=== PATIENT | male | born 1945 | race Caucasian/White ===

== ENCOUNTER 2017-02-08 19:46 | Inpatient (IN) | payer OTHER, BC ==
[2017-02-08 19:56] VITALS: BMI 33.0
--- NOTE | 2017-02-08 20:28 | PDOC ---
Attending Attestation - Resident Resident Name: Jesus Rouse - ED Attending Attestation I have performed the following: I have examined & evaluated the patient, The case was reviewed & discussed with the resident, I agree w/resident's findings & plan, Exceptions are as noted - HPI HPI: 02/08/17 20:44 Pt presents for admission for surgery to his spine. Pt has had procedure before. - Physicial Exam PE: 02/08/17 20:45 *Physical Exam General Appearance: Yes: Appropriately Dressed. No: Apparent Distress, Intoxicated HEENT: positive: EOMI, GEORGES, Normal ENT Inspection, Normal Voice, TMs Normal, Pharynx Normal. negative: Pale Conjunctivae, Photophobia, Scleral Icterus (R), Scleral Icterus (L) Neck: positive: Trachea midline, Normal Thyroid, Supple. negative: Tender, Rigid, Carotid bruit, Stridor, Lymphadenopathy (R), Lymphadenopathy (L), Thyromegaly Respiratory/Chest: positive: Lungs Clear, Normal Breath Sounds. negative: Chest Tender, Respiratory Distress, Accessory Muscle Use, Labored Respiration, RES, Crackles, Rales, Rhonchi, Stridor, Wheezing, Dullness Cardiovascular: positive: Regular Rhythm, Regular Rate, S1, S2. negative: Edema , JVD, Murmur, Bradycardia, Tachycardia Vascular Pulses: Dorsalis-Pedis (R): 2+, Doralis-Pedis (L): 2+ Gastrointestinal/Abdominal: positive: Normal Bowel Sounds, Flat, Soft. negative : Tender, Organomegaly, Pulsatile Mass, Increased Bowel Sounds, Decreased BS, Distended, Guarding, Rebound, Hernia, Hepatomegaly, Spleenomegaly Lymphatic: negative: Adenopathy, Tenderness Musculoskeletal: positive: Normal Inspection. negative: CVA Tenderness, Decreased Range of Motion Extremity: positive: Normal Capillary Refill, Normal Inspection, Normal Range of Motion, Pelvis Stable. negative: Tender, Pedal Edema, Swelling, Erythema Integumentary: positive: Normal Color, Dry, Warm. 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 negative: EOM Palsy, Facial Droop, Sensory Deficit - Medical Decision Making 02/13/17 19:51 Pt admitted to ICU
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
[2017-02-08 21:31] LABS: BASOPHIL 1.1 % (0-2.0); EOSINOPHIL 2.6 % (0-4.5); MCH 29.7 pg (25.7-33.7); MCHC 34.2 g/dl (32.0-35.9); MEAN CELL VOLUME 86.7 fl (80-96); MEAN PLT VOLUME 8.7 fl (7.5-11.1); NEUTROPHILS 56.5 % (42.8-82.8); PLATELET COUNT 248 K/MM3 (134-434); RDW 13.4 % (11.9-15.9); WHITE BLOOD COUNT 9.6 K/mm3 (4.0-10.0)
[2017-02-08 21:46] LABS: INR 0.97 (0.82-1.09)
[2017-02-08 22:07] LABS: ALBUMIN 3.6 g/dl (3.4-5.0); ALK PHOS 98 U/L (45-117); ANION GAP 7 (8-16); BILIRUBIN,TOTAL 0.3 mg/dL (0.2-1.0); CALCIUM 8.8 mg/dL (8.5-10.1); CO2 31 mmol/L (21-32); CREATININE 0.8 mg/dL (0.7-1.3); GLUCOSE,RANDOM 115 mg/dL (74-106); MAGNESIUM 2.2 mg/dL (1.8-2.4); SGOT/AST 17 U/L (15-37); SGPT/ALT 22 U/L (12-78); TOT PROT 6.9 g/dl (6.4-8.2)
[2017-02-09 06:05] LABS: URINE APPEARANCE CLEAR; URINE BILIRUBIN NEGATIVE (NEGATIVE); URINE BLOOD NEGATIVE (NEGATIVE); URINE COLOR YELLOW; URINE GLUCOSE (UA) NEGATIVE (NEGATIVE); URINE KETONE NEGATIVE (NEGATIVE); URINE NITRITE NEGATIVE (NEGATIVE); URINE PROTEIN NEGATIVE (NEGATIVE); URINE UROBILINOGEN NEGATIVE mg/dL (0.2-1.0)
--- NOTE | 2017-02-09 07:46 | PDOC ---
*Physical Exam - Vital Signs Last Vital Signs Temp Pulse Resp BP Pulse Ox 97.7 F 71 18 143/74 98 02/08/17 19:49 02/08/17 19:49 02/08/17 19:49 02/08/17 19:49 02/08/17 19:49 ED Treatment Course - LABORATORY CBC & Chemistry Diagram: 02/08/17 21:25 02/08/17 21:25 - ADDITIONAL ORDERS Additional order review: Laboratory Results 02/09/17 02/08/17 02/08/17 05:40 21:25 21:25 PT with INR INR Sodium 142 Potassium 3.8 Chloride 104 Carbon Dioxide 31 Anion Gap 7 L BUN 22 H Creatinine 0.8 Creat Clearance w eGFR > 60 Random Glucose 115 H Calcium 8.8 Magnesium 2.2 Total Bilirubin 0.3 AST 17 ALT 22 Alkaline Phosphatase 98 Total Protein 6.9 Albumin 3.6 Urine Color Yellow Urine Appearance Clear Urine pH 5.0 Ur Specific [place] 1.026 Urine Protein Negative Urine Glucose (UA) Negative Urine Ketones Negative Urine Blood Negative Urine Nitrite Negative Urine Bilirubin Negative Urine Urobilinogen Negative Blood Type A POSITIVE Antibody Screen Negative 02/08/17 21:25 PT with INR 11.00 INR 0.97 Sodium Potassium Chloride Carbon Dioxide Anion Gap BUN Creatinine Creat Clearance w eGFR Random Glucose Calcium Magnesium Total Bilirubin AST ALT Alkaline Phosphatase Total Protein Albumin Urine Color Urine Appearance Urine pH Ur Specific [place] Urine Protein Urine Glucose (UA) Urine Ketones Urine Blood Urine Nitrite Urine Bilirubin Urine Urobilinogen Blood Type Antibody Screen 02/08/17 21:25 RBC 4.53 MCV 86.7 MCHC 34.2 RDW 13.4 MPV 8.7 Neutrophils % 56.5 Lymphocytes % 29.7 Monocytes % 10.1 Eosinophils % 2.6 Basophils % 1.1 Progress Note - Progress Note Progress Note: Received report from Dr. Lee. Second call placed to Dr. Suarez's office at [phone]. Medical Decision Making - Medical Decision Making 02/09/17 09:59 Three calls have been placed this morning to Dr. Suarez's office at [phone] with no response. Discussed with patient that we have been unable to reach his surgeon. Pt has also called the service twice. Pt reports his surgery is scheduled for Sunday. On Feb 07, pt reports that Dr. Suarez's nurse told him to come to [facility] Sunday (02/09) at 6:30am. Pt told nurse that he had no transportation to arrive that early, and RN told him to come last night to the ED instead. Since we have been unable to reach the surgeon, the surgery is scheduled for Sunday, and the patient has no acute pain complaints, we will discharge him home. 02/09/17 10:09 *DC/Admit/Observation/Transfer Diagnosis at time of Disposition: Lumbar spine root compression - Referrals - Patient Instructions Additional Instructions: Please follow-up with your Orthopedic surgeon regarding when your surgery is scheduled and pre-operative preparations. - Post Discharge Activity
--- NOTE | 2017-02-09 09:28 | EKG ---
Test Reason : Blood Pressure : / mmHG Vent. Rate : 068 BPM Atrial Rate : 068 BPM P-R Int : 174 ms QRS Dur : 106 ms QT Int : 422 ms P-R-T Axes : 029 036 032 degrees QTc Int : 448 ms NORMAL SINUS RHYTHM NON-SPECIFIC INTRA-VENTRICULAR CONDUCTION DELAY NO PREVIOUS ECGS AVAILABLE Confirmed by ISIS ARCHER MD ([id number]) on 02/09/2017 9:27:53 AM Referred By: Confirmed By:ISIS ARCHER MD
[2017-02-09 09:42] LABS: URINE LEUK ESTERASE Negative (NEGATIVE)
--- NOTE | 2017-02-09 11:45 | PDOC ---
ED Treatment Course - LABORATORY CBC & Chemistry Diagram: 02/08/17 21:25 02/08/17 21:25 - ADDITIONAL ORDERS Additional order review: Laboratory Results 02/09/17 05:40 Urine Color Yellow Urine Appearance Clear Urine pH 5.0 Ur Specific [place] 1.026 Urine Protein Negative Urine Glucose (UA) Negative Urine Ketones Negative Urine Blood Negative Urine Nitrite Negative Urine Bilirubin Negative Urine Urobilinogen Negative Ur Leukocyte Esterase Negative 02/08/17 21:25 RBC 4.53 MCV 86.7 MCHC 34.2 RDW 13.4 MPV 8.7 Neutrophils % 56.5 Lymphocytes % 29.7 Monocytes % 10.1 Eosinophils % 2.6 Basophils % 1.1 Medical Decision Making - Medical Decision Making 02/09/17 11:42 Patient will be admitted to Hospitalist service for intractable back pain, pre- operative clearance, and scheduled surgery on Sunday by Dr. Suarez. 02/09/17 12:46 *DC/Admit/Observation/Transfer Diagnosis at time of Disposition: Lumbar spine root compression - Discharge Dispostion Admit: Yes Decision to Admit order Date/Time: 02/09/17 12:00 Will admit to Hospitalist service. - Referrals - Patient Instructions - Post Discharge Activity
[2017-02-09] MEDS ORDERED: morphine SULFATE 4 MG/ML VIAL IVPUSH PRN (13:30)
[2017-02-09] MEDS ORDERED: PATIENT'S OWN MEDICATION (NON-FORMULARY) (Losartan/Hydrochlorothiazide [Losartan-Hctz 100- PO SCH (13:45)
--- NOTE | 2017-02-09 13:55 | HP ---
Admitting History and Physical - Primary Care Physician PCP: not on staff - Admission Chief Complaint: Worsening Back Pain History of Present Illness: Patient is a 71 year old male with a PMHx of HTN, HLD, DMII (diet controled), Anxiety/depression, Chronic Back pain who presents today complaining of increasing back pain and radiculopathy for the last two weeks with difficulty ambulating. Patient is scheduled for a hardware revision of the back on with Dr. Suarez and requires pre-op clearance and risk stratification. Otherwise, patient denies fever, chills, chest pain, palpitations, shortness of breath. History Source: Patient Limitations to Obtaining History: No Limitations - Past Medical History Cardiovascular: Yes: HTN, Hyperlipdemia Endocrine: Yes: Diabetes Mellitus - Past Surgical History Additional Past Surgical History: Lumbar Spinal Fusion (2016) - Smoking History Smoking history: Current every day smoker Have you smoked in the past 12 months: Yes Aproximately how many cigarettes per day: 6 - Alcohol/Substance Use Hx Alcohol Use: No History of Substance Use: reports: None - Social History Usual Living Arrangement: Yes: With Spouse History of Recent Travel: No Home Medications - Allergies Allergies/Adverse Reactions: Allergies Allergy/AdvReac Type Severity Reaction Status Date / Time Penicillins Allergy Hives Verified 02/08/17 20:13 erythromycin base AdvReac Verified 02/08/17 20:13 - Home Medications Home Medications: Ambulatory Orders Atorvastatin Ca [Lipitor] 20 mg PO HS 02/08/17 Duloxetine HCl [Cymbalta] 120 mg PO DAILY 02/08/17 Gabapentin [Neurontin] 600 mg PO TID 02/08/17 Metoprolol Succinate [Toprol Xl] 50 mg PO DAILY 02/08/17 Mirtazapine [Remeron -] 30 mg PO DAILY 02/08/17 Ropinirole HCl [Ropinirole ER] 6 mg PO DAILY 02/08/17 Bupropion HCl [Bupropion Xl] 150 mg PO DAILY 02/09/17 Cyclobenzaprine HCl [Flexeril -] 10 mg PO HS 02/09/17 Losartan 50Mg/Hctz 12.5MG [Hyzaar -] 1 tab PO DAILY 02/09/17 Oxycodone HCl 30 mg PO TID 02/09/17 Physical Examination Vital Signs: Vital Signs Temperature 98.4 F 02/09/17 08:41 Pulse Rate 67 02/09/17 08:41 Respiratory Rate 18 02/09/17 08:41 Blood Pressure 148/71 02/09/17 08:41 O2 Sat by Pulse Oximetry (%) 99 02/09/17 08:41 Constitutional: Yes: Well Nourished, Calm, Mild Distress (Painful distress) Eyes: Yes: WNL, Conjunctiva Clear, EOM Intact HENT: Yes: WNL, Normocephalic Neck: Yes: WNL, Supple, Trachea Midline Cardiovascular: Yes: WNL, Regular Rate and Rhythm, S1, S2 Respiratory: Yes: WNL, Regular, CTA Bilaterally. No: Accessory Muscle Use, Bradypnea, Rales, Rhonchi, SOB, Tachypnea, Wheezes Gastrointestinal: Yes: WNL, Normal Bowel Sounds, Soft. No: Ascites, Splenomegaly, Tenderness, Tenderness, Epigastrium, Tenderness, Rebound, Vomiting Musculoskeletal: Yes: WNL Extremities: Yes: WNL. No: Calf Tenderness, Cold, Cool, Erythema Edema: No Peripheral Pulses WNL: Yes Peripheral Pulses: Left Radial: 2+, Right Radial: 2+, Left Doralis Pedis: 2+, Right Dorsalis Pedis: 2+ Integumentary: Yes: WNL. No: Erythema, Incision, Jaundice, Laceration, Petechiae Neurological: Yes: WNL, Alert, Oriented, Cran Nerves II-XII Intact. No: Aphasia , Asterixis, Ataxia, Dysarthria, Facial Droop ...Motor Strength: LUE (4/5 throughout due to pain with decreased ROM throughout ), LLE, RUE, RLE Psychiatric: Yes: WNL, Alert, Oriented Labs: CBC, BMP 02/08/17 21:25 02/08/17 21:25 Assessment/Plan Patient is a 71 year old male who presented for chronic intractable back pain scheduled for hardware revision on 02/12/17. Patient admitted for further monitoring and management. Lumbar Radiculopathy with Intractable Back Pain -Worsening gait and pain -Scheduled for hardware revision 02/12/17 and will need pre-op clearance -Pulmonology consult placed for clearance as patient is a half pack per day smoker. However, patient reports no history of asthma, copd/emphysema -Will place on NPO at midnight before the surgery -Pain control with home medication oxycodone. -Will resume home medications Neurontin, flexeril, Cymbalta, Ropinirole -Intermediate Risk Surgery HTN-Controlled -Continue home medication HCTZ, Cozaar and Toprol. Will need to confirm meds with pharmacy -Continue to monitor BP HLD -Lipid panel ordered -Continue Lipitor 20mg daily DMII -Controlled with diet -A1C ordered -BGM and ISS Anxiety/Depression -Continue Cymbalta, Remeron and Seroquel F/E/N -On no fluids. Patient tolerating PO intake -Electrolytes wnl -Sodium and Diabetic controlle diet Prophylaxis -Moderate risk. Heparin 5000 units SQ Q8H for DVT. -No GI required -Deconditioning: Physical therapy ordered as patient already has difficulty ambulating Disposition -Full code -Procedure scheduled for Sunday. Will need Pre-op clearance Full H&P to follow Case Discussed with Medical Team Rupal Elizondo [id number] Visit type - Emergency Visit Emergency Visit: Yes ED Registration Date: 02/09/17 Care time: The patient presented to the Emergency Department on the above date and was hospitalized for further evaluation of their emergent condition. - New Patient This patient is new to me today: Yes Date on this admission: 02/09/17 - Critical Care Critical Care patient: No
[2017-02-09] MEDS ORDERED: DULoxetine HCL 30 MG CAPSULE.DR (FP) PO SCH (14:00)
[2017-02-09] MEDS ORDERED: HYDROCHLOROTHIAZIDE 12.5 MG CAPSULE (FP) PO SCH (14:30)
[2017-02-09] MEDS ORDERED: MIRTAZAPINE 15 MG TABLET (FP) PO SCH (14:30)
[2017-02-09] MEDS ORDERED: LOSARTAN POTASSIUM 50 MG TABLET (FP) PO SCH (14:30)
[2017-02-09] MEDS ORDERED: GABAPENTIN 300 MG CAPSULE (FP) PO SCH (14:30)
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
--- NOTE | 2017-02-09 17:23 | PN ---
Teaching Attending Note Name of Resident: Jen Jackson ATTENDING PHYSICIAN STATEMENT I saw and evaluated the patient. I reviewed the resident's note and discussed the case with the resident. I agree with the resident's findings and plan as documented. SUBJECTIVE: This is a 71-year-old man with a history of HTN, hyperlipidemia, type 2 DM, depression, lumbar fusion who presented to the ER last night because of worsening pain in his back radiating down both legs. He had seen his back surgeon, Dr. Rodrigo Suarez, and surgery was scheduled for 02/12. OBJECTIVE: Vital Signs Period Temp Pulse Resp BP Sys/Benjamin Pulse Ox Last 24 Hr 97.7 F-98.4 F 67-80 18-20 143-148/71-74 98-99 HEART: S1S2, RRR LUNGS: Clear ABDOMEN: Obese, soft, non-tender, non-distended, normal BS EXTREMITIES: No edema NEUROLOGIC: BLE weakness Home Medications Medication Instructions Recorded Atorvastatin Ca [Lipitor] 20 mg PO HS 02/08/17 Duloxetine HCl [Cymbalta] 120 mg PO DAILY 02/08/17 Gabapentin [Neurontin] 600 mg PO TID 02/08/17 Metoprolol Succinate [Toprol Xl] 50 mg PO DAILY 02/08/17 Mirtazapine [Remeron -] 30 mg PO DAILY 02/08/17 Ropinirole HCl [Ropinirole ER] 6 mg PO DAILY 02/08/17 Bupropion HCl [Bupropion Xl] 150 mg PO DAILY 02/09/17 Cyclobenzaprine HCl [Flexeril -] 10 mg PO HS 02/09/17 Losartan 50Mg/Hctz 12.5MG [Hyzaar 1 tab PO DAILY 02/09/17 -] Oxycodone HCl 30 mg PO TID 02/09/17 Laboratory Tests 02/08/17 02/08/17 02/08/17 21:25 21:25 21:25 WBC 9.6 RBC 4.53 Hgb 13.4 Hct 39.3 MCV 86.7 MCH 29.7 MCHC 34.2 RDW 13.4 Plt Count 248 MPV 8.7 Neutrophils % 56.5 Lymphocytes % 29.7 Monocytes % 10.1 Eosinophils % 2.6 Basophils % 1.1 PT with INR 11.00 INR 0.97 Sodium 142 Potassium 3.8 Chloride 104 Carbon Dioxide 31 Anion Gap 7 L BUN 22 H Creatinine 0.8 Creat Clearance w eGFR > 60 Random Glucose 115 H Calcium 8.8 Magnesium 2.2 Total Bilirubin 0.3 AST 17 ALT 22 Alkaline Phosphatase 98 Total Protein 6.9 Albumin 3.6 Urine Color Urine Appearance Urine pH Ur Specific [place] Urine Protein Urine Glucose (UA) Urine Ketones Urine Blood Urine Nitrite Urine Bilirubin Urine Urobilinogen Ur Leukocyte Esterase Blood Type Antibody Screen 02/08/17 02/09/17 21:25 05:40 WBC RBC Hgb Hct MCV MCH MCHC RDW Plt Count MPV Neutrophils % Lymphocytes % Monocytes % Eosinophils % Basophils % PT with INR INR Sodium Potassium Chloride Carbon Dioxide Anion Gap BUN Creatinine Creat Clearance w eGFR Random Glucose Calcium Magnesium Total Bilirubin AST ALT Alkaline Phosphatase Total Protein Albumin Urine Color Yellow Urine Appearance Clear Urine pH 5.0 Ur Specific [place] 1.026 Urine Protein Negative Urine Glucose (UA) Negative Urine Ketones Negative Urine Blood Negative Urine Nitrite Negative Urine Bilirubin Negative Urine Urobilinogen Negative Ur Leukocyte Esterase Negative Blood Type A POSITIVE Antibody Screen Negative ASSESSMENT AND PLAN: This is a 71-year-old man with a history of HTN, hyperlipidemia, type 2 DM, depression, lumbar fusion who came to the ER last night with worsening pain in his back radiating down both legs. 1. Lumbar radiculopathy with intractable pain - History of lumbar fusion ~1 yr ago - Continue Neurontin, Flexeril, Cymbalta, Requip, oxycodone - Consult Dr. Suarez 2. HTN - Continue Hyzaar, Toprol XL 3. Hyperlipidemia - Continue Lipitor 4. Type 2 DM - Diet-controlled - Fingersticks with Novolog sliding scale 5. Depression - Continue Cymbalta, Wellbutrin, Remeron
[2017-02-09] MEDS: oxyCODONE HCL 5 MG TABLET PO SCH ×2 (17:59→21:14)
[2017-02-09] MEDS: DULoxetine HCL 30 MG CAPSULE.DR (FP) PO SCH (18:00)
[2017-02-09] MEDS: LOSARTAN 50MG/HCTZ 12.5MG 1 TAB (FP) PO SCH (18:00)
[2017-02-09] MEDS: HEPARIN NA (PORCINE) 5,000 UNITS/ML 1ML VIAL SQ SCH ×2 (18:01→21:13)
[2017-02-09] MEDS: METOPROLOL SUCCINATE 50 MG TAB.SR.24H (FP) PO SCH (18:01)
[2017-02-09] MEDS: INSULIN SLIDING SCALE (NOVOLOG) 1 VIAL SQ SCH ×2 (18:02→21:13)
[2017-02-09] MEDS ORDERED: MIRTAZAPINE 15 MG TABLET (FP) ONE (20:52)
[2017-02-09] MEDS ORDERED: PT OWN MED DRAWER 7, Y5N ONE (21:00)
[2017-02-09] MEDS: CYCLOBENZAPRINE HCL 10 MG TABLET (FP) PO SCH (21:13)
[2017-02-09] MEDS: GABAPENTIN 300 MG CAPSULE (FP) PO SCH (21:13)
[2017-02-09] MEDS: ATORVASTATIN CA 20 MG TABLET (FP) PO SCH (21:13)
[2017-02-09] MEDS: MIRTAZAPINE 30 MG TABLET (FP) PO SCH (21:14)
[2017-02-09] MEDS: rOPINIRole HCL 1 MG TABLET (FP) PO SCH (21:14)
[2017-02-09] MEDS ORDERED: QUEtiapine FUMARATE 100 MG TABLET (FP) PO SCH (22:00)
[2017-02-10] MEDS: INSULIN SLIDING SCALE (NOVOLOG) 1 VIAL SQ SCH ×4 (06:23→22:14)
[2017-02-10] MEDS: HEPARIN NA (PORCINE) 5,000 UNITS/ML 1ML VIAL SQ SCH ×3 (06:24→22:13)
[2017-02-10] MEDS: GABAPENTIN 300 MG CAPSULE (FP) PO SCH ×3 (06:24→22:04)
[2017-02-10] MEDS: oxyCODONE HCL 5 MG TABLET PO SCH ×3 (06:25→22:14)
[2017-02-10] MEDS ORDERED: PT OWN MED DRAWER 7, Y5N ONE ×2 (07:26→09:20)
--- NOTE | 2017-02-10 08:50 | PN ---
Physical Exam: SUBJECTIVE: Patient seen and examined Patient is a 71yo male presented to ED c/o having intractable back pain with Radiation to LEs, patient has a hx of Laminectomy (a year ago), but his symptoms started to get worse this past week , he has been followed up with . OBJECTIVE: Vital Signs Temperature 97.7 F 02/10/17 07:00 Pulse Rate 68 02/10/17 07:00 Respiratory Rate 20 02/10/17 07:00 Blood Pressure 152/87 02/10/17 07:00 O2 Sat by Pulse Oximetry (%) 98 02/10/17 06:00 GENERAL: The patient is awake, alert, and fully oriented, in mild distress. HEAD: Normal with no signs of trauma. EYES: PERRL, extraocular movements intact, sclera anicteric, conjunctiva clear. No ptosis. ENT: Ears normal, nares patent, oropharynx clear without exudates, moist mucous membranes. NECK: Trachea midline, full range of motion, supple. LUNGS: Breath sounds equal, clear to auscultation bilaterally, no wheezes, no crackles, no accessory muscle use. HEART: Regular rate and rhythm, S1, S2 positive, KATH 2/6 . ABDOMEN: Soft, large abdomen, nontender, nondistended, normoactive bowel sounds , no guarding, no rebound, no hepatosplenomegaly, no masses appreciated. EXTREMITIES: 2+ pulses, warm, well-perfused, no edema. NEUROLOGICAL: Cranial nerves II through XII grossly intact. Normal speech, gait not observed. PSYCH: Normal mood, normal affect. SKIN: Warm, dry, normal turgor, no rashes or lesions noted Laboratory Results - last 24 hr 02/09/17 02/09/17 02/09/17 05:40 17:12 21:12 POC Glucometer 116 108 Ur Leukocyte Esterase Negative 02/10/17 05:57 POC Glucometer 100 Ur Leukocyte Esterase CBCD WBC 9.6 K/mm3 (4.0-10.0) 02/08/17 21:25 RBC 4.53 M/mm3 (4.00-5.60) 02/08/17 21:25 Hgb 13.4 GM/dL (11.7-16.9) 02/08/17 21:25 Hct 39.3 % (35.4-49) 02/08/17 21:25 MCV 86.7 fl (80-96) 02/08/17 21:25 MCHC 34.2 g/dl (32.0-35.9) 02/08/17 21:25 RDW 13.4 % (11.9-15.9) 02/08/17 21:25 Plt Count 248 K/MM3 (134-434) 02/08/17 21:25 MPV 8.7 fl (7.5-11.1) 02/08/17 21:25 CMP Sodium 142 mmol/L (136-145) 02/08/17 21:25 Potassium 3.8 mmol/L (3.5-5.1) 02/08/17 21:25 Chloride 104 mmol/L (98-107) 02/08/17 21:25 Carbon Dioxide 31 mmol/L (21-32) 02/08/17 21:25 Anion Gap 7 (8-16) L 02/08/17 21:25 BUN 22 mg/dL (7-18) H 02/08/17 21:25 Creatinine 0.8 mg/dL (0.7-1.3) 02/08/17 21:25 Creat Clearance w eGFR > 60 (>60) 02/08/17 21:25 Random Glucose 115 mg/dL (74-106) H 02/08/17 21:25 Calcium 8.8 mg/dL (8.5-10.1) 02/08/17 21:25 Total Bilirubin 0.3 mg/dL (0.2-1.0) 02/08/17 21:25 AST 17 U/L (15-37) 02/08/17 21:25 ALT 22 U/L (12-78) 02/08/17 21:25 Alkaline Phosphatase 98 U/L (45-117) 02/08/17 21:25 Total Protein 6.9 g/dl (6.4-8.2) 02/08/17 21:25 Albumin 3.6 g/dl (3.4-5.0) 02/08/17 21:25 active Medications Generic Name Dose Route Start Last Admin Trade Name Freq PRN Reason Stop Dose Admin Atorvastatin Calcium 20 mg 02/09/17 22:00 02/09/17 21:13 Lipitor - PO Not Given HS ENRIQUE Bupropion HCl 150 mg 02/09/17 15:45 02/09/17 18:00 Wellbutrin Xl - PO Not Given DAILY [facility] Cyclobenzaprine HCl 10 mg 02/09/17 22:00 02/09/17 21:13 Flexeril - PO Not Given HS [facility] Duloxetine HCl 120 mg 02/09/17 16:00 02/09/17 18:00 Cymbalta - PO Not Given DAILY [facility] Gabapentin 600 mg 02/09/17 22:00 02/10/17 06:24 Neurontin - PO 600 mg TID [facility] Administration HCTZ/Losartan Potassium 1 tab 02/09/17 15:00 02/09/17 18:00 Hyzaar - PO Not Given DAILY [facility] Heparin Sodium (Porcine) 5,000 unit 02/09/17 14:00 02/10/17 06:24 Heparin - SQ 02/11/17 21:00 5,000 unit TID [facility] Administration Dextrose/Sodium Chloride 1,000 mls @ 125 mls/hr 02/11/17 23:55 D5-1/2ns - IV ASDIR [facility] Insulin Aspart 1 vial 02/09/17 16:30 02/10/17 06:23 Novolog Vial Sliding Scale - SQ Not Given ACHS [facility] Protocol Metoprolol Succinate 50 mg 02/09/17 14:00 02/09/17 18:01 Toprol Xl - PO Not Given DAILY [facility] Mirtazapine 30 mg 02/09/17 22:00 02/09/17 21:14 Remeron - PO Not Given HS [facility] Oxycodone HCl 30 mg 02/09/17 16:00 02/10/17 06:25 Roxicodone - PO 30 mg TID [facility] Administration Ropinirole HCl 3 mg 02/09/17 22:00 02/09/17 21:14 Requip - PO Not Given BID [facility] Home Medications Medication Instructions Recorded Atorvastatin Ca [Lipitor] 20 mg PO HS 02/08/17 Duloxetine HCl [Cymbalta] 120 mg PO DAILY 02/08/17 Gabapentin [Neurontin] 600 mg PO TID 02/08/17 Metoprolol Succinate [Toprol Xl] 50 mg PO DAILY 02/08/17 Mirtazapine [Remeron -] 30 mg PO DAILY 02/08/17 Ropinirole HCl [Ropinirole ER] 6 mg PO DAILY 02/08/17 Bupropion HCl [Bupropion Xl] 150 mg PO DAILY 02/09/17 Cyclobenzaprine HCl [Flexeril -] 10 mg PO HS 02/09/17 Losartan 50Mg/Hctz 12.5MG [Hyzaar 1 tab PO DAILY 02/09/17 -] Oxycodone HCl 30 mg PO TID 02/09/17 ASSESSMENT AND PLAN: This is a 71-year-old man with a history of HTN, hyperlipidemia, type 2 DM, depression, lumbar fusion who came to the ER last night with worsening pain in his back radiating down both legs. # Acute Lumbar radiculopathy with intractable pain with History of lumbar fusion ~1 yr ago, with worsening pain, on multiple pain meds continue. Continue Neurontin, Flexeril, Cymbalta, Requip, oxycodone, patient was seen by Dr. Suarez today , going for sx for revision on Sunday morning, will get cardio and pulm, to clear the patient. EKG in the chart, CXR done positive for large heart, type and screen for 2 unites, cbc, cmp. # HTN Continue Hyzaar, Toprol XL # Hyperlipidemia Continue Lipitor will check LIpid panel # Type 2 DM Diet-controlled, SS with coverage, will check hemoglobin A1c # Depression Continue Cymbalta, Wellbutrin, Remeron DVT Px; HepaRIN SQ Visit type - Emergency Visit Emergency Visit: Yes ED Registration Date: 02/09/17 Care time: The patient presented to the Emergency Department on the above date and was hospitalized for further evaluation of their emergent condition. - New Patient This patient is new to me today: Yes Date on this admission: 02/10/17 - Critical Care Critical Care patient: No
[2017-02-10] MEDS: LOSARTAN 50MG/HCTZ 12.5MG 1 TAB (FP) PO SCH (09:23)
[2017-02-10] MEDS: rOPINIRole HCL 1 MG TABLET (FP) PO SCH ×2 (09:23→22:06)
[2017-02-10] MEDS: METOPROLOL SUCCINATE 50 MG TAB.SR.24H (FP) PO SCH (09:23)
[2017-02-10] MEDS: DULoxetine HCL 30 MG CAPSULE.DR (FP) PO SCH (09:24)
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
[2017-02-10] MEDS ORDERED: MIRTAZAPINE 15 MG TABLET (FP) ONE (20:15)
[2017-02-10] MEDS: CYCLOBENZAPRINE HCL 10 MG TABLET (FP) PO SCH (22:04)
[2017-02-10] MEDS: ATORVASTATIN CA 20 MG TABLET (FP) PO SCH (22:04)
[2017-02-10] MEDS: MIRTAZAPINE 30 MG TABLET (FP) PO SCH (22:05)
[2017-02-11] MEDS: oxyCODONE HCL 5 MG TABLET PO SCH ×3 (06:16→21:50)
[2017-02-11] MEDS: HEPARIN NA (PORCINE) 5,000 UNITS/ML 1ML VIAL SQ SCH ×2 (06:17→14:59)
[2017-02-11] MEDS: INSULIN SLIDING SCALE (NOVOLOG) 1 VIAL SQ SCH ×2 (06:17→11:30)
[2017-02-11] MEDS: GABAPENTIN 300 MG CAPSULE (FP) PO SCH ×3 (06:18→21:49)
[2017-02-11 07:28] LABS: MCH 29.5 pg (25.7-33.7); MCHC 34.2 g/dl (32.0-35.9); MEAN CELL VOLUME 86.2 fl (80-96); MEAN PLT VOLUME 8.7 fl (7.5-11.1); PLATELET COUNT 213 K/MM3 (134-434); RDW 13.3 % (11.9-15.9); WHITE BLOOD COUNT 7.6 K/mm3 (4.0-10.0)
[2017-02-11 07:42] LABS: INR 1.04 (0.82-1.09); PROTHROMBIN TIME (PATIENT) 11.8 SEC (9.98-11.88)
[2017-02-11 07:44] LABS: ACTIVATED PTT 30.4 SECONDS (26.9-34.4)
[2017-02-11 08:09] LABS: ALBUMIN 3.2 g/dl (3.4-5.0); ALK PHOS 92 U/L (45-117); ANION GAP 7 (8-16); BILIRUBIN,TOTAL 0.6 mg/dL (0.2-1.0); CALCIUM 8.9 mg/dL (8.5-10.1); CO2 29 mmol/L (21-32); CREATININE 0.7 mg/dL (0.7-1.3); GLUCOSE,RANDOM 91 mg/dL (74-106); MAGNESIUM 2.2 mg/dL (1.8-2.4); PHOSPHOROUS 3.9 mg/dL (2.5-4.9); SGOT/AST 16 U/L (15-37); SGPT/ALT 19 U/L (12-78); TOT PROT 6.4 g/dl (6.4-8.2)
[2017-02-11 08:35] LABS: THYROID STIMULATING HORMONE 1.84 uIU/ml (0.358-3.74)
--- NOTE | 2017-02-11 08:48 | PN ---
Teaching Attending Note Name of Resident: Jen Jackson ATTENDING PHYSICIAN STATEMENT I saw and evaluated the patient. I reviewed the resident's note and discussed the case with the resident. I agree with the resident's findings and plan as documented. SUBJECTIVE: Patient is comfortable with no acute distress. c/o having back pain justice.on ambulation. No chest pain, no shortness of breath. OBJECTIVE: Vital Signs Temperature 98 F 02/11/17 08:06 Pulse Rate 60 02/11/17 08:06 Respiratory Rate 20 02/11/17 08:06 Blood Pressure 117/58 02/11/17 08:06 O2 Sat by Pulse Oximetry (%) 97 02/10/17 21:00 CBCD WBC 7.6 K/mm3 (4.0-10.0) 02/11/17 06:00 RBC 4.41 M/mm3 (4.00-5.60) 02/11/17 06:00 Hgb 13.0 GM/dL (11.7-16.9) 02/11/17 06:00 Hct 38.0 % (35.4-49) 02/11/17 06:00 MCV 86.2 fl (80-96) 02/11/17 06:00 MCHC 34.2 g/dl (32.0-35.9) 02/11/17 06:00 RDW 13.3 % (11.9-15.9) 02/11/17 06:00 Plt Count 213 K/MM3 (134-434) 02/11/17 06:00 MPV 8.7 fl (7.5-11.1) 02/11/17 06:00 CMP Sodium 140 mmol/L (136-145) 02/11/17 06:00 Potassium 3.9 mmol/L (3.5-5.1) 02/11/17 06:00 Chloride 104 mmol/L (98-107) 02/11/17 06:00 Carbon Dioxide 29 mmol/L (21-32) 02/11/17 06:00 Anion Gap 7 (8-16) L 02/11/17 06:00 BUN 19 mg/dL (7-18) H 02/11/17 06:00 Creatinine 0.7 mg/dL (0.7-1.3) 02/11/17 06:00 Creat Clearance w eGFR > 60 (>60) 02/11/17 06:00 Random Glucose 91 mg/dL (74-106) D 02/11/17 06:00 Calcium 8.9 mg/dL (8.5-10.1) 02/11/17 06:00 Total Bilirubin 0.6 mg/dL (0.2-1.0) D 02/11/17 06:00 AST 16 U/L (15-37) 02/11/17 06:00 ALT 19 U/L (12-78) 02/11/17 06:00 Alkaline Phosphatase 92 U/L (45-117) 02/11/17 06:00 Total Protein 6.4 g/dl (6.4-8.2) 02/11/17 06:00 Albumin 3.2 g/dl (3.4-5.0) L 02/11/17 06:00 Current Medications Generic Name Dose Route Start Last Admin Trade Name Freq PRN Reason Stop Dose Admin Atorvastatin Calcium 20 mg 02/09/17 22:00 02/10/17 22:04 Lipitor - PO 20 mg HS ENRIQUE Administration Bupropion HCl 150 mg 02/09/17 15:45 02/10/17 09:23 Wellbutrin Xl - PO 150 mg DAILY ENRIQUE Administration Cyclobenzaprine HCl 10 mg 02/09/17 22:00 02/10/17 22:04 Flexeril - PO 10 mg HS ENRIQUE Administration Duloxetine HCl 120 mg 02/09/17 16:00 02/10/17 09:24 Cymbalta - PO 120 mg DAILY ENRIQUE Administration Gabapentin 600 mg 02/09/17 22:00 02/11/17 06:18 Neurontin - PO 600 mg TID ENRIQUE Administration HCTZ/Losartan Potassium 1 tab 02/09/17 15:00 02/10/17 09:23 Hyzaar - PO 1 tab DAILY ENRIQUE Administration Heparin Sodium (Porcine) 5,000 unit 02/09/17 14:00 02/11/17 06:17 Heparin - SQ 02/11/17 21:00 5,000 unit TID ENRIQUE Administration Insulin Aspart 1 vial 02/09/17 16:30 02/11/17 06:17 Novolog Vial Sliding Scale - SQ Not Given ACHS ENRIQUE Protocol Metoprolol Succinate 50 mg 02/09/17 14:00 02/10/17 09:23 Toprol Xl - PO 50 mg DAILY ENRIQUE Administration Mirtazapine 30 mg 02/09/17 22:00 02/10/17 22:05 Remeron - PO 30 mg HS ENRIQUE Administration Oxycodone HCl 30 mg 02/09/17 16:00 02/11/17 06:16 Roxicodone - PO 30 mg TID ENRIQUE Administration Ropinirole HCl 3 mg 02/09/17 22:00 02/10/17 22:06 Requip - PO 3 mg BID ENRIQUE Administration Home Medications Medication Instructions Recorded Atorvastatin Ca [Lipitor] 20 mg PO HS 02/08/17 Duloxetine HCl [Cymbalta] 120 mg PO DAILY 02/08/17 Gabapentin [Neurontin] 600 mg PO TID 02/08/17 Metoprolol Succinate [Toprol Xl] 50 mg PO DAILY 02/08/17 Mirtazapine [Remeron -] 30 mg PO DAILY 02/08/17 Ropinirole HCl [Ropinirole ER] 6 mg PO DAILY 02/08/17 Bupropion HCl [Bupropion Xl] 150 mg PO DAILY 02/09/17 Cyclobenzaprine HCl [Flexeril -] 10 mg PO HS 02/09/17 Losartan 50Mg/Hctz 12.5MG [Hyzaar 1 tab PO DAILY 02/09/17 -] Oxycodone HCl 30 mg PO TID 02/09/17 PE: per resident's note ASSESSMENT AND PLAN: This is a 71-year-old man with a history of HTN, hyperlipidemia, type 2 DM, depression, lumbar fusion who came to the ER last night with worsening pain in his back radiating down both legs. # Severe OSAS : Portable sleep screen showed an index of 36 -> Severe OSAS. discussed will pulmonary. # Acute Lumbar radiculopathy with intractable pain with History of lumbar fusion x 1 yr ago, with worsening pain today , on multiple pain meds Continue Neurontin, Flexeril, Cymbalta, Requip, oxycodone, patient was seen by Dr. Suarez orthopedic is going for revision of back surgery, as per cardio and pulm, patient is cleared for surgery . EKG in the chart, CXR done positive for large heart, type and screen for 2 unites, cbc, cmp. # HTN Continue Hyzaar, Toprol XL # Hyperlipidemia Continue Lipitor will check LIpid panel # Type 2 DM Diet-controlled, SS with coverage, will check hemoglobin A1c # Depression Continue Cymbalta, Wellbutrin, Remeron DVT Px; HepaRIN SQ, NPO after midnight.
[2017-02-11] MEDS ORDERED: PT OWN MED DRAWER 7, Y5N ONE ×4 (09:54→21:31)
[2017-02-11] MEDS: LOSARTAN 50MG/HCTZ 12.5MG 1 TAB (FP) PO SCH (10:09)
[2017-02-11] MEDS: rOPINIRole HCL 1 MG TABLET (FP) PO SCH ×2 (10:09→21:50)
[2017-02-11] MEDS: METOPROLOL SUCCINATE 50 MG TAB.SR.24H (FP) PO SCH (10:09)
[2017-02-11] MEDS: DULoxetine HCL 30 MG CAPSULE.DR (FP) PO SCH (10:09)
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
[2017-02-11] MEDS ORDERED: MELATONIN 5 MG TABLETS PO PRN (11:12)
--- NOTE | 2017-02-11 11:12 | PN ---
Progress Note (short form) - Note Progress Note: Feels ok except for LBP. Breathing feels ok. Portable sleep screen shows an index of 36 -> Severe OSAS. Intake & Output 02/08/17 02/09/17 02/10/17 02/11/17 23:59 23:59 23:59 23:59 Intake Total 1620 Balance 1620 Weight 230 lb 230 lb Last Vital Signs Temp Pulse Resp BP Pulse Ox 98 F 60 20 117/58 97 02/11/17 08:06 02/11/17 08:06 02/11/17 08:06 02/11/17 08:06 02/10/17 21:00 Active Medications Atorvastatin Calcium (Lipitor -) 20 mg PO HS [facility] Last Admin: 02/10/17 22:04 Dose: 20 mg Bupropion HCl (Wellbutrin Xl -) 150 mg PO DAILY [facility] Last Admin: 02/11/17 10:09 Dose: 150 mg Cyclobenzaprine HCl (Flexeril -) 10 mg PO HS [facility] Last Admin: 02/10/17 22:04 Dose: 10 mg Duloxetine HCl (Cymbalta -) 120 mg PO DAILY [facility] Last Admin: 02/11/17 10:09 Dose: 120 mg Gabapentin (Neurontin -) 600 mg PO TID [facility] Last Admin: 02/11/17 06:18 Dose: 600 mg HCTZ/Losartan Potassium (Hyzaar -) 1 tab PO DAILY [facility] Last Admin: 02/11/17 10:09 Dose: 1 tab Heparin Sodium (Porcine) (Heparin -) 5,000 unit SQ TID [facility] Stop: 02/11/17 21:00 Last Admin: 02/11/17 06:17 Dose: 5,000 unit Insulin Aspart (Novolog Vial Sliding Scale -) 1 vial SQ ACHS [facility] PRN Reason: Protocol Last Admin: 02/11/17 06:17 Dose: Not Given Metoprolol Succinate (Toprol Xl -) 50 mg PO DAILY [facility] Last Admin: 02/11/17 10:09 Dose: 50 mg Mirtazapine (Remeron -) 30 mg PO HS [facility] Last Admin: 02/10/17 22:05 Dose: 30 mg Oxycodone HCl (Roxicodone -) 30 mg PO TID [facility] Last Admin: 02/11/17 06:16 Dose: 30 mg Ropinirole HCl (Requip -) 3 mg PO BID [facility] Last Admin: 02/11/17 10:09 Dose: 3 mg Constitutional: Yes: No Distress, Obese Eyes: Yes: Conjunctiva Clear, EOM Intact HENT: Yes: Atraumatic, Normocephalic Neck: Yes: Supple, Trachea Midline Cardiovascular: Yes: Regular Rate and Rhythm Respiratory: Yes: CTA Bilaterally. No: Accessory Muscle Use, Cough, Rales, Rhonchi, SOB, SOB on Exertion, Stridor, Tachypnea, Wheezes ...Inspection: Yes: WNL ...Clubbing: No Gastrointestinal: Yes: WNL, Normal Bowel Sounds, Soft, Abdomen, Obese Renal/: Yes: WNL Breast(s): Yes: WNL Musculoskeletal: Yes: WNL, Back Pain, Joint Stiffness, Joint Swelling, Muscle Pain, Muscle Weakness Extremities: Yes: WNL Edema: No Peripheral Pulses WNL: Yes Integumentary: Yes: WNL Neurological: Yes: WNL, Alert, Oriented Psychiatric: Yes: WNL, Alert, Oriented Labs: Laboratory Results - last 24 hr 02/10/17 02/10/17 02/11/17 12:19 17:20 06:00 WBC 7.6 RBC 4.41 Hgb 13.0 Hct 38.0 MCV 86.2 MCH 29.5 MCHC 34.2 RDW 13.3 Plt Count 213 MPV 8.7 Manual Slide Review No Result Required. PT with INR INR PTT (Actin FS) Sodium Potassium Chloride Carbon Dioxide Anion Gap BUN Creatinine Creat Clearance w eGFR POC Glucometer 110 105 Random Glucose Calcium Phosphorus Magnesium Total Bilirubin AST ALT Alkaline Phosphatase Total Protein Albumin Triglycerides Cholesterol Total LDL Cholesterol HDL Cholesterol TSH 02/11/17 02/11/17 02/11/17 06:00 06:00 06:00 WBC RBC Hgb Hct MCV MCH MCHC RDW Plt Count MPV Manual Slide Review PT with INR 11.80 INR 1.04 PTT (Actin FS) 30.4 Sodium 140 Potassium 3.9 Chloride 104 Carbon Dioxide 29 Anion Gap 7 L BUN 19 H Creatinine 0.7 Creat Clearance w eGFR > 60 POC Glucometer Random Glucose 91 D Calcium 8.9 Phosphorus 3.9 Magnesium 2.2 Total Bilirubin 0.6 D AST 16 ALT 19 Alkaline Phosphatase 92 Total Protein 6.4 Albumin 3.2 L Triglycerides 229 H Cholesterol 125 Total LDL Cholesterol 59 HDL Cholesterol 46 TSH 1.84 02/11/17 06:14 WBC RBC Hgb Hct MCV MCH MCHC RDW Plt Count MPV Manual Slide Review PT with INR INR PTT (Actin FS) Sodium Potassium Chloride Carbon Dioxide Anion Gap BUN Creatinine Creat Clearance w eGFR POC Glucometer 100 Random Glucose Calcium Phosphorus Magnesium Total Bilirubin AST ALT Alkaline Phosphatase Total Protein Albumin Triglycerides Cholesterol Total LDL Cholesterol HDL Cholesterol TSH Problem List - Problems (1) Hypertension Code(s): I10 - ESSENTIAL (PRIMARY) HYPERTENSION (2) Hyperlipidemia Code(s): E78.5 - HYPERLIPIDEMIA, UNSPECIFIED (3) Smoker Code(s): F17.200 - NICOTINE DEPENDENCE, UNSPECIFIED, UNCOMPLICATED (4) Lumbar spine root compression Code(s): M54.16 - RADICULOPATHY, LUMBAR REGION Assessment/Plan No Pulmonary contraindication for anticipated OR, although he does have potential increased risk due to daily smoking and Severe OSAS. No need for systemic steroids Can use BD TX PRN O2 as needed Smoking cessation discussed PFTs once stable as on outpatient Lung CT screening as an outpatient Formal OSAS reevaluation for treatment after discharge Dr Robertson Problem List - Problems (1) Hypertension Code(s): I10 - ESSENTIAL (PRIMARY) HYPERTENSION (2) Hyperlipidemia Code(s): E78.5 - HYPERLIPIDEMIA, UNSPECIFIED (3) Smoker Code(s): F17.200 - NICOTINE DEPENDENCE, UNSPECIFIED, UNCOMPLICATED (4) Lumbar spine root compression Code(s): M54.16 - RADICULOPATHY, LUMBAR REGION
[2017-02-11] MEDS ORDERED: HYDROmorphone HCL CARPU-JECT 1 MG/1 ML DISP.SYRIN IVPUSH ONE (11:39)
[2017-02-11] MEDS ORDERED: HYDROmorphone HCL 2 MG TABLET PO ONE (11:50)
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
[2017-02-11] MEDS ORDERED: MIRTAZAPINE 15 MG TABLET (FP) ONE (21:28)
[2017-02-11] MEDS: CYCLOBENZAPRINE HCL 10 MG TABLET (FP) PO SCH (21:49)
[2017-02-11] MEDS: ATORVASTATIN CA 20 MG TABLET (FP) PO SCH (21:49)
[2017-02-11] MEDS: MIRTAZAPINE 30 MG TABLET (FP) PO SCH (21:49)
[2017-02-11] MEDS ORDERED: DEXTROSE 5%-0.45% SALINE 1,000 ML IV SCH ×2 (23:55)
[2017-02-12] MEDS ORDERED: PT OWN MED DRAWER 7, Y5N ONE ×2 (03:58→09:21)
[2017-02-12] MEDS: oxyCODONE HCL 5 MG TABLET PO SCH ×2 (05:31→13:33)
[2017-02-12] MEDS: GABAPENTIN 300 MG CAPSULE (FP) PO SCH ×3 (05:31→22:44)
[2017-02-12] MEDS ORDERED: INSULIN SLIDING SCALE (NOVOLOG) 1 VIAL SQ SCH (07:00)
[2017-02-12] MEDS: METOPROLOL SUCCINATE 50 MG TAB.SR.24H (FP) PO SCH ×2 (07:29→09:36)
[2017-02-12] MEDS: LOSARTAN 50MG/HCTZ 12.5MG 1 TAB (FP) PO SCH ×2 (07:29→09:36)
[2017-02-12] MEDS ORDERED: LIDOCAINE HCL/PF 2% SDV 5ML VIAL ONE (07:43)
[2017-02-12] MEDS ORDERED: fentaNYL CITRATE 250 MCG/5 ML VIAL ONE ×2 (07:43→10:27)
[2017-02-12] MEDS ORDERED: MIDAZOLAM HCL 2 MG/2 ML SINGLE DOSE VIAL ONE ×5 (07:44)
[2017-02-12] MEDS ORDERED: SUCCINYLCHOLINE CHLORIDE 200 MG/10 ML VIAL ONE (07:44)
[2017-02-12] MEDS ORDERED: PROPOFOL 20 ML ONE ×13 (07:44→11:22)
[2017-02-12] MEDS ORDERED: HEPARIN NA (PORCINE) 5,000 UNITS/ML 1ML VIAL ONE ×2 (08:07→08:26)
[2017-02-12] MEDS ORDERED: THROMBIN (BOVINE) 5,000 UNIT VIAL TP ONE (08:07)
--- NOTE | 2017-02-12 09:32 | PN ---
Progress Note (short form) - Note Progress Note: 71M p/w L5/S1 pseudarthrosis, spondylolisthesis, & B/L LE L5 & S1 radiculopathies. Pain well controlled. No acute events overnight. Pt. denies overnight history of chest pain, shortness of breath, nausea, vomiting, chills/sweats. All labs & vital signs reviewed. PE: AAO x 3, NAD. Spine: Incision C/D/I, well-healed. B/L LE M: Hip/Knees/Ankle dorsiflexion 5/5; Great toe extension & ankle plantar flexion 4/5. B/L LE S: L2-L4 2/2; L5, S1 1/2. B/L LE V: Pitting edema 1+; normal arterial supply. A/P: 71M p/w L5/S1 pseudarthrosis, spondylolisthesis, & B/L LE L5 & S1 radiculopathies. -Pre-op for today: removal of hardware, revision decompression, revision posterior instrumented spinal fusion, pelvic fixation., -NPO, IVF. -Hold all chemical DVT PPx. -4U PRBC on hold. -Consent obtained, in chart. -Admit to ICU post-op.
[2017-02-12] MEDS: DULoxetine HCL 30 MG CAPSULE.DR (FP) PO SCH (09:36)
[2017-02-12] MEDS: rOPINIRole HCL 1 MG TABLET (FP) PO SCH ×2 (09:36→23:57)
[2017-02-12] MEDS ORDERED: ePHEDrine SULFATE 50 MG/1 ML AMPULE ONE (09:46)
[2017-02-12] MEDS ORDERED: ceFAZolin SODIUM 1 GM VIAL IVPB ONE ×2 (09:54→13:40)
[2017-02-12] MEDS ORDERED: VANCOMYCIN 1,000 MG VIAL (RESTRICTED TO ID ONLY) IVPB ONE (09:57)
[2017-02-12] MEDS ORDERED: VANCOMYCIN 1,000 MG VIAL (RESTRICTED TO ID ONLY) ONE ×2 (10:27→14:18)
[2017-02-12] MEDS ORDERED: ceFAZolin SODIUM 1 GM VIAL ONE ×2 (10:27→13:33)
[2017-02-12] MEDS ORDERED: ONDANSETRON 4 MG/2 ML VIAL ONE ×2 (10:42→15:08)
[2017-02-12] MEDS ORDERED: DEXAMETHASONE SOD PHOSPHATE 4 MG/1 ML VIAL ONE (10:42)
[2017-02-12] MEDS ORDERED: PHENYLEPHRINE HCL 10 MG/1 ML SINGLE DOSE VIAL ONE (10:54)
[2017-02-12] MEDS ORDERED: MINERAL OIL 25 ML OIL ONE (10:55)
[2017-02-12] MEDS ORDERED: FUROSEMIDE 40 MG/4 ML INJECTABLE VIAL ONE (13:03)
--- NOTE | 2017-02-12 13:05 | PN ---
Progress Note, Physician History of Present Illness: Patient in OR, trudi-op recommendations per Dr. Tavera's initial recs. - Current Medication List Current Medications: Active Medications Atorvastatin Calcium (Lipitor -) 20 mg PO HS [facility] Last Admin: 02/11/17 21:49 Dose: 20 mg Bupropion HCl (Wellbutrin Xl -) 150 mg PO DAILY [facility] Last Admin: 02/12/17 09:37 Dose: Not Given Cyclobenzaprine HCl (Flexeril -) 10 mg PO HS [facility] Last Admin: 02/11/17 21:49 Dose: 10 mg Duloxetine HCl (Cymbalta -) 120 mg PO DAILY [facility] Last Admin: 02/12/17 09:36 Dose: Not Given Gabapentin (Neurontin -) 600 mg PO TID [facility] Last Admin: 02/12/17 05:31 Dose: 600 mg HCTZ/Losartan Potassium (Hyzaar -) 1 tab PO DAILY [facility] Last Admin: 02/12/17 09:36 Dose: Not Given Dextrose/Sodium Chloride (D5-1/2ns -) 1,000 mls @ 125 mls/hr IV ASDIR [facility] Last Admin: 02/11/17 23:04 Dose: 125 mls/hr Insulin Aspart (Novolog Vial Sliding Scale -) 1 vial SQ ACBK [facility] PRN Reason: Protocol Last Admin: 02/12/17 06:11 Dose: Not Given Melatonin (Melatonin) 5 mg PO HS PRN PRN Reason: INSOMNIA Last Admin: 02/12/17 04:00 Dose: 5 mg Metoprolol Succinate (Toprol Xl -) 50 mg PO DAILY [facility] Last Admin: 02/12/17 09:36 Dose: Not Given Mirtazapine (Remeron -) 30 mg PO HS [facility] Last Admin: 02/11/17 21:49 Dose: 30 mg Oxycodone HCl (Roxicodone -) 30 mg PO TID [facility] Last Admin: 02/12/17 05:31 Dose: 30 mg Ropinirole HCl (Requip -) 3 mg PO BID [facility] Last Admin: 02/12/17 09:36 Dose: Not Given - Objective Vital Signs: Vital Signs Temperature 98.4 F 02/12/17 07:49 Pulse Rate 67 02/12/17 07:49 Respiratory Rate 20 02/12/17 07:49 Blood Pressure 183/92 02/12/17 07:49 O2 Sat by Pulse Oximetry (%) 96 02/11/17 20:46 Labs: CBC, BMP 02/11/17 06:00 02/11/17 06:00 INR, PTT INR 1.04 (0.82-1.09) 02/11/17 06:00 Assessment/Plan 1. History of spinal fusion, planned for removal of hardware, revision decompression, revision posterior instrumented spinal fusion, pelvic fixation, pre-operative cardiovascular evaluation 2. Hypertension 3. Hypercholesterolemia 4. Type 2 diabetes mellitus 5. History of anxiety/depression PLAN: 1. No absolute contraindication in proceeding with planned spine/vertebral surgery in view of absence of ischemia symptoms, decompensated congestive heart failure or malignant arrhythmias with acceptable risk 2. Continue Losartan/HCTZ 1 qd and Metoprolol XL 50 qd 3. Continue Atorvastatin 20 qhs 4. Continue diabetes medications 5. Further pulmonary evaluation including ruling out for obstructive sleep apnea can be done as outpatient. Smoking cessation was counseled 6. Continue current medication for anxiety/depression 7. Analgesics PRN
--- NOTE | 2017-02-12 14:45 | EKG ---
Test Reason : Blood Pressure : / mmHG Vent. Rate : 063 BPM Atrial Rate : 063 BPM P-R Int : 192 ms QRS Dur : 104 ms QT Int : 436 ms P-R-T Axes : 048 040 035 degrees QTc Int : 446 ms NORMAL SINUS RHYTHM NORMAL ECG WHEN COMPARED WITH ECG OF 08-FEB-2017 21:37, NO SIGNIFICANT CHANGE WAS FOUND Confirmed by ANKIT LYNN MD ([id number]) on 02/12/2017 2:44:46 PM Referred By: Jose Cruz IRIZARRY Confirmed By:ANKIT LYNN MD
[2017-02-12] MEDS ORDERED: FLUMAZENIL 0.5 MG/5 ML VIAL ONE (15:26)
[2017-02-12] MEDS ORDERED: ONDANSETRON 4 MG/2 ML VIAL IVPUSH PRN ×2 (15:45→17:26)
[2017-02-12] MEDS ORDERED: LACTATED RINGERS SOLUTION 1,000 ML IV SCH ×2 (15:45→17:26)
[2017-02-12] MEDS ORDERED: HYDROmorphone *PCA* 10MG/50ML DISP.SYRIN PCA SCH (15:45)
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
[2017-02-12] MEDS: HYDROmorphone *PCA* 10MG/50ML DISP.SYRIN PCA SCH (15:55)
--- NOTE | 2017-02-12 17:03 | OP ---
Operative Note - Note: Operative Date: 02/12/17 Pre-Operative Diagnosis: L5-S1 Pseudarthrosis Operation: 1. Removal of Hardware T12-S1. 2. Revision laminectomy L2-S1. 3. Partial corpectomy. 4. Revision instrumentation T12-S1. 5. Posterior fusion T12-S1 Findings: L5-S1 pseudarthrosis Loose S1 screws Post-Operative Diagnosis: Same as Pre-op Surgeon: Rodrigo Suarez Cnc Manager: Levi Suarez Anesthesia: General Specimens Removed: Hardware Estimated Blood Loss (mls): 1,700 Drains & Tubes with Location: Superficial VELASQUEZ drain Operative Report Dictated: Yes
--- NOTE | 2017-02-12 17:06 | PN ---
Progress Note (short form) - Note Progress Note: A/P: 71M s/p Removal of Hardware T12-S1, Revision laminectomy L2-S1, Partial corpectomy, Revision instrumentation T12-S1, Posterior fusion T12-S1 POD #1. -Pain control. -Mechanical DVT PPx. -Incentive spirometry/pulmonary toilet. -PT/OT/Rehab, OOB as tolerated. -WBAT B/L LE. -Burroughs care (d/c when ambulating comfortably). -NPO until flatus (then advance diet as tolerated beginning with clear liquids). -ICU post-op. -Post-op care per ICU & medical hospitalist team.
[2017-02-12] MEDS ORDERED: MELATONIN 5 MG TABLETS PO PRN (17:26)
[2017-02-12 17:43] LABS: MCH 29.3 pg (25.7-33.7); MCHC 33.7 g/dl (32.0-35.9); MEAN CELL VOLUME 87.2 fl (80-96); MEAN PLT VOLUME 9.1 fl (7.5-11.1); PLATELET COUNT 209 K/MM3 (134-434); RDW 13.4 % (11.9-15.9); WHITE BLOOD COUNT 21.3 K/mm3 (4.0-10.0)
[2017-02-12 18:11] LABS: ANION GAP 8 (8-16); CALCIUM 7.9 mg/dL (8.5-10.1); CO2 26 mmol/L (21-32); CREATININE 1.2 mg/dL (0.7-1.3); GLUCOSE,RANDOM 157 mg/dL (74-106)
--- NOTE | 2017-02-12 20:24 | PN ---
Teaching Attending Note Name of Resident: Jen Jackson ATTENDING PHYSICIAN STATEMENT I saw and evaluated the patient. I reviewed the resident's note and discussed the case with the resident. I agree with the resident's findings and plan as documented. SUBJECTIVE: Patient is comfortable, c/o having pain on PT SITTER pump. no shortness of breath. No fever or chills. IN ICU OBJECTIVE: Vital Signs Temperature 98.2 F 02/12/17 15:30 Pulse Rate 72 02/12/17 19:30 Respiratory Rate 16 02/12/17 19:30 Blood Pressure 124/71 02/12/17 19:30 O2 Sat by Pulse Oximetry (%) 99 02/12/17 19:30 CBCD WBC 21.3 K/mm3 (4.0-10.0) H D 02/12/17 17:00 RBC 4.24 M/mm3 (4.00-5.60) 02/12/17 17:00 Hgb 12.4 GM/dL (11.7-16.9) 02/12/17 17:00 Hct 37.0 % (35.4-49) 02/12/17 17:00 MCV 87.2 fl (80-96) 02/12/17 17:00 MCHC 33.7 g/dl (32.0-35.9) 02/12/17 17:00 RDW 13.4 % (11.9-15.9) 02/12/17 17:00 Plt Count 209 K/MM3 (134-434) 02/12/17 17:00 MPV 9.1 fl (7.5-11.1) 02/12/17 17:00 CMP Sodium 137 mmol/L (136-145) 02/12/17 17:00 Potassium 4.0 mmol/L (3.5-5.1) 02/12/17 17:00 Chloride 103 mmol/L (98-107) 02/12/17 17:00 Carbon Dioxide 26 mmol/L (21-32) 02/12/17 17:00 Anion Gap 8 (8-16) 02/12/17 17:00 BUN 21 mg/dL (7-18) H 02/12/17 17:00 Creatinine 1.2 mg/dL (0.7-1.3) D 02/12/17 17:00 Creat Clearance w eGFR > 60 (>60) 02/11/17 06:00 Random Glucose 157 mg/dL (74-106) H D 02/12/17 17:00 Calcium 7.9 mg/dL (8.5-10.1) L 02/12/17 17:00 Total Bilirubin 0.6 mg/dL (0.2-1.0) D 02/11/17 06:00 AST 16 U/L (15-37) 02/11/17 06:00 ALT 19 U/L (12-78) 02/11/17 06:00 Alkaline Phosphatase 92 U/L (45-117) 02/11/17 06:00 Total Protein 6.4 g/dl (6.4-8.2) 02/11/17 06:00 Albumin 3.2 g/dl (3.4-5.0) L 02/11/17 06:00 Current Medications Generic Name Dose Route Start Last Admin Trade Name Freq PRN Reason Stop Dose Admin Atorvastatin Calcium 20 mg 02/12/17 22:00 Lipitor - PO HS [facility] Bupropion HCl 150 mg 02/13/17 10:00 Wellbutrin Xl - PO DAILY [facility] Chlorhexidine Gluconate 1 applic 02/12/17 22:00 Hibiclens For Decolonization - TP HS ENRIQUE Cyclobenzaprine HCl 10 mg 02/12/17 22:00 Flexeril - PO HS ENRIQUE Duloxetine HCl 120 mg 02/13/17 10:00 Cymbalta - PO DAILY [facility] Gabapentin 600 mg 02/12/17 22:00 Neurontin - PO TID ENRIQUE HCTZ/Losartan Potassium 1 tab 02/13/17 10:00 Hyzaar - PO DAILY [facility] Hydromorphone HCl 10 mg 02/12/17 17:26 02/12/17 15:55 Dilaudid Mental Health Worker - PT SITTER 02/15/17 15:46 10 mg PT SITTER ENRIQUE Administration Protocol Lactated Ringer's 1,000 mls @ 125 mls/hr 02/12/17 17:26 Lactated Ringers Solution IV ASDIR ENRIQUE Insulin Aspart 1 vial 02/13/17 07:00 Novolog Vial Sliding Scale - SQ ACBK ENRIQUE Protocol Melatonin 5 mg 02/12/17 17:26 Melatonin PO HS PRN INSOMNIA Metoprolol Succinate 50 mg 02/13/17 10:00 Toprol Xl - PO DAILY [facility] Mirtazapine 30 mg 02/12/17 22:00 Remeron - PO HS [facility] Mupirocin 1 applic 02/12/17 22:00 Bactroban Ointment (For Decolonization) - NS 02/17/17 21:59 BID [facility] Ondansetron HCl 4 mg 02/12/17 17:26 Zofran Injection IVPUSH Q6H PRN NAUSEA AND/OR VOMITING Ropinirole HCl 3 mg 02/12/17 22:00 Requip - PO BID [facility] Home Medications Medication Instructions Recorded Atorvastatin Ca [Lipitor] 20 mg PO HS 02/08/17 Duloxetine HCl [Cymbalta] 120 mg PO DAILY 02/08/17 Gabapentin [Neurontin] 600 mg PO TID 02/08/17 Metoprolol Succinate [Toprol Xl] 50 mg PO DAILY 02/08/17 Mirtazapine [Remeron -] 30 mg PO DAILY 02/08/17 Ropinirole HCl [Ropinirole ER] 6 mg PO DAILY 02/08/17 Bupropion HCl [Bupropion Xl] 150 mg PO DAILY 02/09/17 Cyclobenzaprine HCl [Flexeril -] 10 mg PO HS 02/09/17 Losartan 50Mg/Hctz 12.5MG [Hyzaar 1 tab PO DAILY 02/09/17 -] Oxycodone HCl 30 mg PO TID 02/09/17 PE: per resident's note ASSESSMENT AND PLAN: This is a 71-year-old man with a history of HTN, hyperlipidemia, type 2 DM, depression, lumbar fusion who came to the ER last night with worsening pain in his back radiating down both legs. # POD #0 s/p Removal of Hardware T12-S1, Revision laminectomy L2-S1, Partial corpectomy, Revision instrumentation T12-S1, Posterior fusion T12-S1 by orthopedic with Hx of lumbar fusion ~1 yr ago, with worsening pain, on multiple pain meds.. # Severe OSAS : sleep screen index of 36 -> Severe OSAS. will benefit from Cpap in the future , discussed will pulmonary follow up with pulmonary as an outpatient upon discharge. # HTN Continue Hyzaar, Toprol XL # Hyperlipidemia Continue Lipitor will check LIpid panel # Type 2 DM Diet-controlled, SS with coverage, will check hemoglobin A1c # Depression Continue Cymbalta, Wellbutrin, Remeron DVT Px; Hold HepaRIN due to recent surgery.
--- NOTE | 2017-02-12 20:27 | PN ---
Progress Note (short form) - Note Progress Note: 71 y/o M with PMH HTN, HLD, DM, who is currently s/p Removal of Hardware T12-S1 , Revision laminectomy L2-S1, Partial corpectomy, Revision instrumentation T12- S1, Posterior fusion T12-S1 POD #0. Surgery done today by Dr. Suarez. s/p Removal of Hardware T12-S1, Revision laminectomy L2-S1, Partial corpectomy, Revision instrumentation T12-S1, Posterior fusion T12-S1 POD #0 -Pain control: Has been on SERVICE PERSON since 4pm today -Encourage OOB -PT to see patient -Incentive spirometry/pulmonary toilet -Checks for handgrip, moving of upper and lower limbs HTN- currently controlled -last readin/78 -Will continue to follow -Pt being restarted on Lopressor, Losartan tomorrow HLD -Continue Lipitor 20mg PO HS DM -ISS- to be started back tomorrow -BGM DVT Prophylaxis SCD's, BINH's Currently not on a/c F/E/N IV LR 125 cc/hr Will monitor electrolytes NPO except for meds- until flatus Will then advance diet to clear liquids Dispo Continued ICU monitoring, post-operative D/c mckeon when can ambulate
[2017-02-12 20:47] LABS: TOTAL CELLS COUNTED 100
[2017-02-12 20:48] LABS: PLATELET ESTIMATE ADEQUATE
[2017-02-12 21:22] LABS: MCH 29.5 pg (25.7-33.7); MCHC 34.1 g/dl (32.0-35.9); MEAN CELL VOLUME 86.5 fl (80-96); PLATELET COUNT 200 K/MM3 (134-434); RDW 13.5 % (11.9-15.9)
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
[2017-02-12] MEDS ORDERED: MIRTAZAPINE 15 MG TABLET (FP) ONE (22:23)
[2017-02-12] MEDS: CYCLOBENZAPRINE HCL 10 MG TABLET (FP) PO SCH (22:44)
[2017-02-12] MEDS: ATORVASTATIN CA 20 MG TABLET (FP) PO SCH (22:44)
[2017-02-12] MEDS: MUPIROCIN 2% TOPICAL OINTMENT FOR DECOLONIZATION NS SCH (22:45)
[2017-02-12] MEDS: CHLORHEXIDINE GLUCONATE 4% CLEANSER FOR DECOLONIZATION TP SCH (22:45)
[2017-02-12] MEDS: MIRTAZAPINE 30 MG TABLET (FP) PO SCH (22:46)
[2017-02-13] MEDS: GABAPENTIN 300 MG CAPSULE (FP) PO SCH ×3 (05:53→21:14)
[2017-02-13] MEDS: INSULIN SLIDING SCALE (NOVOLOG) 1 VIAL SQ SCH (06:19)
--- NOTE | 2017-02-13 06:20 | PN ---
Progress Note (short form) - Note Progress Note: Chief Complaint: Events noted, notes reviewed, POD#1 post removal and revision of T12-S1 hardware, revision of L2-S1 laminectomy and posterior spinal fusion T12-S1, complaining of persistent discomfort, denies any chest pain or dyspnea History of Present Illness: Seen and examined in the ICU. Events noted, notes reviewed, POD#1 post removal and revision of T12-S1 hardware, revision of L2-S1 laminectomy and posterior spinal fusion T12-S1, complaining of persistent discomfort, denies any chest pain or dyspnea - Current Medication List Current Medications Atorvastatin Calcium (Lipitor -) 20 mg PO HS [facility] Last Admin: 02/12/17 22:44 Dose: 20 mg Bupropion HCl (Wellbutrin Xl -) 150 mg PO DAILY [facility] Chlorhexidine Gluconate (Hibiclens For Decolonization -) 1 applic TP [facility] Last Admin: 02/12/17 22:45 Dose: 1 applic Cyclobenzaprine HCl (Flexeril -) 10 mg PO [facility] Last Admin: 02/12/17 22:44 Dose: 10 mg Duloxetine HCl (Cymbalta -) 120 mg PO DAILY [facility] Gabapentin (Neurontin -) 600 mg PO TID [facility] Last Admin: 02/13/17 05:53 Dose: 600 mg HCTZ/Losartan Potassium (Hyzaar -) 1 tab PO DAILY [facility] Hydromorphone HCl (Dilaudid Labor Specialist -) 10 mg SPOOLER RUBBER STRAND SPOOLER RUBBER STRAND [facility] PRN Reason: Protocol Stop: 02/15/17 15:46 Last Admin: 02/12/17 15:55 Dose: 10 mg Lactated Ringer's (Lactated Ringers Solution) 1,000 mls @ 125 mls/hr IV ASDIR [facility] Last Admin: 02/12/17 23:58 Dose: 125 mls/hr Insulin Aspart (Novolog Vial Sliding Scale -) 1 vial SQ ACBK [facility] PRN Reason: Protocol Last Admin: 02/13/17 06:19 Dose: Not Given Melatonin (Melatonin) 5 mg PO PRN PRN Reason: INSOMNIA Metoprolol Succinate (Toprol Xl -) 50 mg PO DAILY [facility] Mirtazapine (Remeron -) 30 mg PO [facility] Last Admin: 02/12/17 22:46 Dose: 30 mg Mupirocin (Bactroban Ointment (For Decolonization) -) 1 applic NS BID [facility] Stop: 02/17/17 21:59 Last Admin: 02/12/17 22:45 Dose: 1 applic Ondansetron HCl (Zofran Injection) 4 mg IVPUSH Q6H PRN PRN Reason: NAUSEA AND/OR VOMITING Ropinirole HCl (Requip -) 3 mg PO BID [facility] Last Admin: 02/12/17 23:57 Dose: 3 mg Review of Systems - Review of Systems Constitutional: denies: Chills, Fever Cardiovascular: denies: Chest Pain, Palpitations, Shortness of Breath Respiratory: denies: Cough, Hemoptysis, Orthopnea, PND, SOB, SOB on Exertion Gastrointestinal: denies: Abdominal Pain, Constipation, Diarrhea, Melena, Nausea , Rectal Bleeding, Vomiting Genitourinary: denies: Dysuria, Hematuria Musculoskeletal: reports: Back Pain, Joint Pain Neurological: denies: Dizziness, Headache, Seizure, Syncope - Objective Vital Signs: Last Vital Signs Temp Pulse Resp BP Pulse Ox 97.6 F 79 13 137/71 99 02/13/17 02:00 02/13/17 03:00 02/13/17 03:00 02/13/17 03:00 02/12/17 22:00 Intake & Output 02/10/17 02/11/17 02/12/17 02/13/17 23:59 23:59 23:59 23:59 Intake Total 5308 976 1517 Output Total 4105 Balance 9644 959 7686 EYES: KAILEY, EOMI Neck: Supple Negative JVD No Bruit Respiratory: Clear to A&P Bilaterally Cardiovascular: S1 S2 Regular Rate and Rhythm No Murmurs Gastrointestinal: Soft Benign Normal Bowel Sounds Ext: No Edema Labs: CBC, BMP 02/13/17 05:00 BMP from this AM pending Hepatic Panel Total Bilirubin 0.6 mg/dL (0.2-1.0) D 02/11/17 06:00 AST 16 U/L (15-37) 02/11/17 06:00 ALT 19 U/L (12-78) 02/11/17 06:00 Alkaline Phosphatase 92 U/L (45-117) 02/11/17 06:00 Albumin 3.2 g/dl (3.4-5.0) L 02/11/17 06:00 INR, PTT INR 1.04 (0.82-1.09) 02/11/17 06:00 Assessment/Plan ASSESSMENT: 1. History of spinal fusion, POD#1 post removal and revision of T12-S1 hardware , revision of L2-S1 laminectomy and posterior spinal fusion T12-S1 2. Hypertension 3. Diabetes Mellitus 4. Hypercholesterolemia 5. History of anxiety/depression PLAN: 1. Continue Hyzaar 2. Continue Toprol XL 3. Continue Lipitor 4. DVT prophylaxis, recommend initiation of ASA once cleared surgically 5. Follow BMP from this AM Sylvester Delgado MD
--- NOTE | 2017-02-13 06:23 | OP ---
DATE OF OPERATION: 02/12/2017 SURGEON: Rodrigo Suarez MD COCONUT COOKER: Levi Suarez MD LOCATION: [facility] PREOPERATIVE DIAGNOSES: Pseudoarthrosis, L5-S1, following previous lumbosacral fusion with associated segmental instability and spinal stenosis, L5-S1. POSTOPERATIVE DIAGNOSES: Pseudoarthrosis, L5-S1, following previous lumbosacral fusion with associated segmental instability and spinal stenosis, L5-S1. OPERATION PERFORMED: 1. Removal of hardware. 2. Inspection of fusion mass. 3. Revision laminectomy, L4, L5, S1. 4. Partial corpectomy, S1. 5. Pedicle screw instrumentation, T12 to S1. 6. Posterolateral arthrodesis, T12 to S1. 7. Use of operating fluoroscopy and intraoperative neuromonitoring. BLOOD LOSS: Approximately 1400 mL. Cell Saver utilized. ANTIBIOTICS GIVEN: Kefzol 2 g, vancomycin 1 g preoperative, 1 g of Kefzol given intraoperatively. ANESTHESIA: General. OPERATION IN DETAIL: This patient was correctly identified, brought into the operating room, placed prone on an operating table with gel rolls to provide thoracic and pelvic support. The knees were extended as much as possible to decrease retroversion of the pelvis. The skin was prepped with Betadine scrub solution, wiped with alcohol, DuraPrep applied. A window drape was applied. Midline incision through the old original incision enabled easy dissection through subcutaneous tissues to the level of the midway area of the spinous processes. An oblique incision was then made into the tissues in order to achieve direct dissection of the pedicle screws and rods appropriately. Once the entire hardware was dissected out completely, the screws were removed, the caps were removed. No complications and no difficulties. It was found that the L5-S1 interface was unfused. The L3, L4, L5 lumbar spine region remained flimsy. Once all the screws were removed, the entire posterior elements were taken down. This was difficult because of the previous surgery which was a full laminectomy. The posterior elements were resected by utilizing the principle of operating from normal tissue to abnormal. On that basis, we imploded the bone inwards using osteotomes to longitudinally incise in the intertransverse plane that is the pars interarticularis right to the inferior facets. The superior facets were then resected, and the entire decompression thus was significantly improved from what it was prior to this. On the right-hand side, an attempt at opening and getting under the dura to remove the cage was performed. However, the cage was found not to be even noticeably present even on CT scan. This was there. It was at that point, we opened the disk, and I elected to go ahead with a chamfer-cutting and thus a partial corpectomy of the S1 bone in order to achieve complete freeing of the bone against the nerve roots accordingly. Once this had been performed, the pedicles of T12 right down to S1 were once again entered. Ball-tip feeler was utilized to palpate the exact dimensions of the pedicle. Each pedicle was filled with a 45 x 7.5 screws, and the sacral screws measured 8.5 both left and right-hand side. Once this had been completed, the screws were tested with neuromonitoring and found to be completely safe. The screw holding the sacrum was good. Prior to seating the screws, demineralized colloid bone graft mixed with 120 mL of cells, which were harvested from the posterior ilium was then placed into the spongy matrix of the bone graft that they were soaked, and this was not only packed into the interbody space but also into the disk space of L5-S1, thus completing the anterior arthrodesis. This was the same as the posterior lumbar interbody fusion without the cage. The wounds were thoroughly lavaged. Parenchyma was replaced subfascially. Dawson bone grafting of autologous as well as allograft bone and stem cells was seated into the intertransverse plane from the ala of the sacrum into the posterior intertransverse plane up to the level of L3. The wounds were closed as follows: Muscle 1 Vicryl, fascia 1 Vicryl, subcutaneous 1 and 2-0 Vicryl, skin 3-0 Monocryl and Steri-Strips, thus completing a 25-cm complex wound closure. Drainage: 1/4-inch Hemovac subcutaneously x1. OVERALL COMMENT: Difficult operation. No complications. MD MARINO Mckeon/[id number]
[2017-02-13 06:26] LABS: MCH 29.5 pg (25.7-33.7); MCHC 34.1 g/dl (32.0-35.9); MEAN CELL VOLUME 86.3 fl (80-96); MEAN PLT VOLUME 9.2 fl (7.5-11.1); PLATELET COUNT 193 K/MM3 (134-434); RDW 13.5 % (11.9-15.9); WHITE BLOOD COUNT 16.5 K/mm3 (4.0-10.0)
[2017-02-13 06:51] LABS: ANION GAP 7 (8-16); CALCIUM 8.1 mg/dL (8.5-10.1); CO2 31 mmol/L (21-32); CREATININE 0.8 mg/dL (0.7-1.3); GLUCOSE,RANDOM 121 mg/dL (74-106); MAGNESIUM 1.9 mg/dL (1.8-2.4)
[2017-02-13] MEDS: DULoxetine HCL 30 MG CAPSULE.DR (FP) PO SCH (09:57)
[2017-02-13] MEDS: METOPROLOL SUCCINATE 50 MG TAB.SR.24H (FP) PO SCH (09:59)
[2017-02-13] MEDS: LOSARTAN 50MG/HCTZ 12.5MG 1 TAB (FP) PO SCH (09:59)
[2017-02-13] MEDS: rOPINIRole HCL 1 MG TABLET (FP) PO SCH ×2 (10:00→21:24)
--- NOTE | 2017-02-13 10:26 | PN ---
Progress Note (short form) - Note Progress Note: Anesthesia Post op/Pain Pt seen and examined S:alert and awake c/o pain O: Vital Signs Temperature 98.9 F 02/13/17 10:13 Pulse Rate 80 02/13/17 10:13 Respiratory Rate 13 02/13/17 10:13 Blood Pressure 150/91 02/13/17 10:13 O2 Sat by Pulse Oximetry (%) 99 02/13/17 06:00 CBC, BMP 02/13/17 05:00 02/13/17 05:00 Current Active Problems Anxiety (Acute) Depression (Acute) Diabetes mellitus (Acute) H/O laminectomy (Acute) Hyperlipidemia (Acute) Hypertension (Acute) Lumbar spine root compression (Acute) Preop cardiovascular exam (Acute) Smoker (Acute) A/P:s/prevision right hip Does not use IV PIANO REGULATOR INSPECTOR Instructed to use PIANO REGULATOR INSPECTOR Continue current care Kumar Ortega MD
[2017-02-13] MEDS: MUPIROCIN 2% TOPICAL OINTMENT FOR DECOLONIZATION NS SCH ×2 (10:47→21:11)
[2017-02-13] MEDS: DOCUSATE SODIUM 100 MG CAPSULE (FP) PO SCH ×3 (11:00→21:12)
--- NOTE | 2017-02-13 12:09 | PN ---
Teaching Attending Note Name of Resident: Adonis Reyes ATTENDING PHYSICIAN STATEMENT I saw and evaluated the patient. I reviewed the resident's note and discussed the case with the resident. I agree with the resident's findings and plan as documented. SUBJECTIVE: Patient seen and examined in the ICU. Awake and alert. (+) pain at the surgical site. On INPATIENT PHARMACIST pump. No CP or SOB. Intake & Output 02/10/17 02/11/17 02/12/17 02/13/17 23:59 23:59 23:59 23:59 Intake Total 7767 850 3971 1000 Output Total 4105 830 Balance 0406 936 8589 170 Weight 243 lb 1.6 oz Last Vital Signs Temp Pulse Resp BP Pulse Ox 98.9 F 80 13 150/91 99 02/13/17 10:13 02/13/17 10:13 02/13/17 10:13 02/13/17 10:13 02/13/17 06:00 Active Medications Atorvastatin Calcium (Lipitor -) 20 mg PO HS [facility] Last Admin: 02/12/17 22:44 Dose: 20 mg Bupropion HCl (Wellbutrin Xl -) 150 mg PO DAILY [facility] Last Admin: 02/13/17 10:02 Dose: 150 mg Chlorhexidine Gluconate (Hibiclens For Decolonization -) 1 applic TP HS [facility] Last Admin: 02/12/17 22:45 Dose: 1 applic Cyclobenzaprine HCl (Flexeril -) 10 mg PO HS [facility] Last Admin: 02/12/17 22:44 Dose: 10 mg Docusate Sodium (Colace -) 100 mg PO TID [facility] Duloxetine HCl (Cymbalta -) 120 mg PO DAILY [facility] Last Admin: 02/13/17 09:57 Dose: 120 mg Gabapentin (Neurontin -) 600 mg PO TID [facility] Last Admin: 02/13/17 05:53 Dose: 600 mg HCTZ/Losartan Potassium (Hyzaar -) 1 tab PO DAILY [facility] Last Admin: 02/13/17 09:59 Dose: 1 tab Hydromorphone HCl (Dilaudid Senior Project Engineer -) 10 mg INPATIENT PHARMACIST INPATIENT PHARMACIST ENRIQUE PRN Reason: Protocol Stop: 02/15/17 15:46 Last Admin: 02/12/17 15:55 Dose: 10 mg Lactated Ringer's (Lactated Ringers Solution) 1,000 mls @ 125 mls/hr IV ASDIR [facility] Last Admin: 02/12/17 23:58 Dose: 125 mls/hr Insulin Aspart (Novolog Vial Sliding Scale -) 1 vial SQ ACBK [facility] PRN Reason: Protocol Last Admin: 02/13/17 06:19 Dose: Not Given Melatonin (Melatonin) 5 mg PO HS PRN PRN Reason: INSOMNIA Metoprolol Succinate (Toprol Xl -) 50 mg PO DAILY [facility] Last Admin: 02/13/17 09:59 Dose: 50 mg Mirtazapine (Remeron -) 30 mg PO HS [facility] Last Admin: 02/12/17 22:46 Dose: 30 mg Mupirocin (Bactroban Ointment (For Decolonization) -) 1 applic NS BID [facility] Stop: 02/17/17 21:59 Last Admin: 02/13/17 10:47 Dose: 1 applic Ondansetron HCl (Zofran Injection) 4 mg IVPUSH Q6H PRN PRN Reason: NAUSEA AND/OR VOMITING Ropinirole HCl (Requip -) 3 mg PO BID [facility] Last Admin: 02/13/17 10:00 Dose: 3 mg Senna (Senna -) 1 tab PO [facility] Constitutional: Yes: Obese, Pallor Eyes: Yes: (-) Icterus HENT: Yes: WNL, Atraumatic, Normocephalic Neck: Yes: Supple, Trachea Midline Cardiovascular: Yes: Regular Rate and Rhythm, S1, S2 Respiratory: Yes: Few scattered rhonchi Gastrointestinal: Yes: Soft, Abdomen, Obese Renal/: Yes: Burroughs Present Musculoskeletal: Yes: Back Pain Extremities: Yes: WNL Edema: No Peripheral Pulses WNL: Yes Wound/Incision: Yes: Clean/Dry, Dressing Dry and Intact Neurological: Yes: Alert, Oriented ...Motor Strength: WNL Psychiatric: Yes: Alert, Oriented Labs: Laboratory Results - last 24 hr 02/12/17 02/12/17 02/12/17 09:00 17:00 17:00 WBC 18.0 H D 21.3 H RBC 4.25 4.24 Hgb 12.5 12.4 Hct 36.7 37.0 MCV 86.5 87.2 MCH 29.5 29.3 MCHC 34.1 33.7 RDW 13.5 13.4 Plt Count 200 209 MPV 9.0 9.1 Total Counted 100 Neutrophils % (Manual) 88.0 H Band Neutrophils % 4.0 Lymphocytes % (Manual) 3.0 L Monocytes % (Manual) 5 Manual Slide Review Platelet Estimate Adequate Platelet Comment Sodium 137 Potassium 4.0 Chloride 103 Carbon Dioxide 26 Anion Gap 8 BUN 21 H Creatinine 1.2 D POC Glucometer Random Glucose 157 H D Calcium 7.9 L Phosphorus Magnesium 02/13/17 02/13/17 02/13/17 05:00 05:00 05:40 WBC 16.5 H RBC 3.95 L Hgb 11.6 L Hct 34.1 L MCV 86.3 MCH 29.5 MCHC 34.1 RDW 13.5 Plt Count 193 MPV 9.2 Total Counted Neutrophils % (Manual) Band Neutrophils % Lymphocytes % (Manual) Monocytes % (Manual) Manual Slide Review Platelet Estimate Platelet Comment Sodium 138 Potassium 4.2 Chloride 100 Carbon Dioxide 31 Anion Gap 7 L BUN 16 D Creatinine 0.8 D POC Glucometer 139.12039 Random Glucose 121 H D Calcium 8.1 L Phosphorus 4.0 Magnesium 1.9 Problem List - Problems (1) H/O laminectomy Code(s): Z98.890 - OTHER SPECIFIED POSTPROCEDURAL STATES (2) Anxiety Code(s): F41.9 - ANXIETY DISORDER, UNSPECIFIED (3) Diabetes mellitus Code(s): E11.9 - TYPE 2 DIABETES MELLITUS WITHOUT COMPLICATIONS Qualifiers: Diabetes mellitus type: type 2 Diabetes mellitus complication status: without complication Diabetes mellitus detention insulin use: unspecified detention insulin use status Qualified Code(s): E11.9 - Type 2 diabetes mellitus without complications (4) Lumbar spine root compression Code(s): M54.16 - RADICULOPATHY, LUMBAR REGION (5) Smoker Code(s): F17.200 - NICOTINE DEPENDENCE, UNSPECIFIED, UNCOMPLICATED Assessment/Plan Pain control Incentive Spirometer Decrease IVF BD TX PRN Monitor VELASQUEZ output O2 as needed Continue BP meds Mechanical VTE prophylaxis ASA and SQ Heparin when OK with surgery Dr Robertson Critical care time spent in reviewing chart, evaluating patient and formulating plan - 36 minutes. Problem List - Problems (1) Hypertension Code(s): I10 - ESSENTIAL (PRIMARY) HYPERTENSION Qualifiers: Hypertension type: essential hypertension Qualified Code(s): I10 - Essential (primary) hypertension (2) Hyperlipidemia Code(s): E78.5 - HYPERLIPIDEMIA, UNSPECIFIED Qualifiers: Hyperlipidemia type: pure hypercholesterolemia Qualified Code(s): E78.00 - Pure hypercholesterolemia, unspecified; E78.0 - Pure hypercholesterolemia (3) Smoker Code(s): F17.200 - NICOTINE DEPENDENCE, UNSPECIFIED, UNCOMPLICATED (4) Lumbar spine root compression Code(s): M54.16 - RADICULOPATHY, LUMBAR REGION
[2017-02-13] MEDS: HYDROmorphone *PCA* 10MG/50ML DISP.SYRIN PCA SCH ×2 (13:13→18:22)
[2017-02-13] MEDS: SENNOSIDES 8.6MG TABLET (FP) PO SCH ×2 (13:22→21:14)
[2017-02-13] MEDS ORDERED: guaiFENesin/D-METHORPHAN HB 10 ML UNIT-DOSE CUPS PO ONE (14:01)
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
[2017-02-13] MEDS: LACTATED RINGERS SOLUTION 1,000 ML IV SCH (15:00)
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
--- NOTE | 2017-02-13 18:25 | PN ---
Teaching Attending Note Name of Resident: Jen Jackson ATTENDING PHYSICIAN STATEMENT I saw and evaluated the patient. I reviewed the resident's note and discussed the case with the resident. I agree with the resident's findings and plan as documented. SUBJECTIVE: Patient continues to have pain on MANUFACTURING COST ESTIMATOR pump continue. OBJECTIVE: Vital Signs Temperature 98.9 F 02/13/17 10:00 Pulse Rate 78 02/13/17 14:00 Respiratory Rate 15 02/13/17 15:13 Blood Pressure 107/60 02/13/17 14:00 O2 Sat by Pulse Oximetry (%) 99 02/13/17 09:00 CBCD WBC 16.5 K/mm3 (4.0-10.0) H 02/13/17 05:00 RBC 3.95 M/mm3 (4.00-5.60) L 02/13/17 05:00 Hgb 11.6 GM/dL (11.7-16.9) L 02/13/17 05:00 Hct 34.1 % (35.4-49) L 02/13/17 05:00 MCV 86.3 fl (80-96) 02/13/17 05:00 MCHC 34.1 g/dl (32.0-35.9) 02/13/17 05:00 RDW 13.5 % (11.9-15.9) 02/13/17 05:00 Plt Count 193 K/MM3 (134-434) 02/13/17 05:00 MPV 9.2 fl (7.5-11.1) 02/13/17 05:00 CMP Sodium 138 mmol/L (136-145) 02/13/17 05:00 Potassium 4.2 mmol/L (3.5-5.1) 02/13/17 05:00 Chloride 100 mmol/L (98-107) 02/13/17 05:00 Carbon Dioxide 31 mmol/L (21-32) 02/13/17 05:00 Anion Gap 7 (8-16) L 02/13/17 05:00 BUN 16 mg/dL (7-18) D 02/13/17 05:00 Creatinine 0.8 mg/dL (0.7-1.3) D 02/13/17 05:00 Creat Clearance w eGFR > 60 (>60) 02/11/17 06:00 Random Glucose 121 mg/dL (74-106) H D 02/13/17 05:00 Calcium 8.1 mg/dL (8.5-10.1) L 02/13/17 05:00 Total Bilirubin 0.6 mg/dL (0.2-1.0) D 02/11/17 06:00 AST 16 U/L (15-37) 02/11/17 06:00 ALT 19 U/L (12-78) 02/11/17 06:00 Alkaline Phosphatase 92 U/L (45-117) 02/11/17 06:00 Total Protein 6.4 g/dl (6.4-8.2) 02/11/17 06:00 Albumin 3.2 g/dl (3.4-5.0) L 02/11/17 06:00 Current Medications Generic Name Dose Route Start Last Admin Trade Name Javierq PRN Reason Stop Dose Admin Atorvastatin Calcium 20 mg 02/12/17 22:00 02/12/17 22:44 Lipitor - PO 20 mg HS ENRIQUE Administration Bupropion HCl 150 mg 02/13/17 10:00 02/13/17 10:02 Wellbutrin Xl - PO 150 mg DAILY ENRIQUE Administration Chlorhexidine Gluconate 1 applic 02/12/17 22:00 02/12/17 22:45 Hibiclens For Decolonization - TP 1 applic HS ENRIQUE Administration Cyclobenzaprine HCl 10 mg 02/12/17 22:00 02/12/17 22:44 Flexeril - PO 10 mg HS ENRIQUE Administration Docusate Sodium 100 mg 02/13/17 10:15 02/13/17 13:19 Colace - PO 100 mg TID ENRIQUE Administration Duloxetine HCl 120 mg 02/13/17 10:00 02/13/17 09:57 Cymbalta - PO 120 mg DAILY ENRIQUE Administration Gabapentin 600 mg 02/12/17 22:00 02/13/17 13:25 Neurontin - PO 600 mg TID ENRIQUE Administration HCTZ/Losartan Potassium 1 tab 02/13/17 10:00 02/13/17 09:59 Hyzaar - PO 1 tab DAILY ENRIQUE Administration Hydromorphone HCl 10 mg 02/12/17 17:26 02/13/17 18:22 Dilaudid Caramel Candy Maker Helper - MANUFACTURING COST ESTIMATOR 02/15/17 15:46 Not Given MANUFACTURING COST ESTIMATOR ENRIQUE Protocol Lactated Ringer's 1,000 mls @ 75 mls/hr 02/13/17 14:21 02/13/17 15:00 Lactated Ringers Solution IV 75 mls/hr ASDIR ENRIQUE Administration Insulin Aspart 1 vial 02/13/17 07:00 02/13/17 06:19 Novolog Vial Sliding Scale - SQ Not Given ACBK [facility] Protocol Melatonin 5 mg 02/12/17 17:26 Melatonin PO HS PRN INSOMNIA Metoprolol Succinate 50 mg 02/13/17 10:00 02/13/17 09:59 Toprol Xl - PO 50 mg DAILY ENRIQUE Administration Mirtazapine 30 mg 02/12/17 22:00 02/12/17 22:46 Remeron - PO 30 mg HS [facility] Administration Mupirocin 1 applic 02/12/17 22:00 02/13/17 10:47 Bactroban Ointment (For Decolonization) - NS 02/17/17 21:59 1 applic BID ENRIQUE Administration Ondansetron HCl 4 mg 02/12/17 17:26 Zofran Injection IVPUSH Q6H PRN NAUSEA AND/OR VOMITING Ropinirole HCl 3 mg 02/12/17 22:00 02/13/17 10:00 Requip - PO 3 mg BID ENRIQUE Administration Senna 1 tab 02/13/17 10:15 02/13/17 13:22 Senna - PO Not Given [facility] Home Medications Medication Instructions Recorded Atorvastatin Ca [Lipitor] 20 mg PO HS 02/08/17 Duloxetine HCl [Cymbalta] 120 mg PO DAILY 02/08/17 Gabapentin [Neurontin] 600 mg PO TID 02/08/17 Metoprolol Succinate [Toprol Xl] 50 mg PO DAILY 02/08/17 Mirtazapine [Remeron -] 30 mg PO DAILY 02/08/17 Ropinirole HCl [Ropinirole ER] 6 mg PO DAILY 02/08/17 Bupropion HCl [Bupropion Xl] 150 mg PO DAILY 02/09/17 Cyclobenzaprine HCl [Flexeril -] 10 mg PO HS 02/09/17 Losartan 50Mg/Hctz 12.5MG [Hyzaar 1 tab PO DAILY 02/09/17 -] Oxycodone HCl 30 mg PO TID 02/09/17 PE: per resident's note, Positive for VELASQUEZ drainage around 30cc of serasangenous ASSESSMENT AND PLAN: This is a 71-year-old man with a history of HTN, hyperlipidemia, type 2 DM, depression, lumbar fusion who came to the ER last night with worsening pain in his back radiating down both legs. # POD #1 s/p Removal of Hardware T12-S1, Revision laminectomy L2-S1, Partial corpectomy, Revision instrumentation T12-S1, Posterior fusion T12-S1 by orthopedic (with Hx of lumbar fusion ~1 yr ago) on MANUFACTURING COST ESTIMATOR pump continue. # Severe OSAS : sleep screen index of 36 -> Severe OSAS. will benefit from Cpap in the future ,follow with pulmonary upon discharge. # HTN Continue Hyzaar, Toprol XL # Hyperlipidemia Continue Lipitor will check LIpid panel # Type 2 DM Diet-controlled, SS with coverage, will check hemoglobin A1c # Depression Continue Cymbalta, Wellbutrin, Remeron DVT Px; Heparin is still on Hold. check with the surgeon whent to start the heparin Sq on SCDs and Teds stocking.
[2017-02-13] MEDS ORDERED: MIRTAZAPINE 15 MG TABLET (FP) ONE (21:07)
[2017-02-13] MEDS: CYCLOBENZAPRINE HCL 10 MG TABLET (FP) PO SCH (21:14)
[2017-02-13] MEDS: MIRTAZAPINE 30 MG TABLET (FP) PO SCH (21:15)
[2017-02-13] MEDS: ATORVASTATIN CA 20 MG TABLET (FP) PO SCH (21:15)
[2017-02-13] MEDS: CHLORHEXIDINE GLUCONATE 4% CLEANSER FOR DECOLONIZATION TP SCH (21:15)
[2017-02-14 06:19] LABS: MCH 29.9 pg (25.7-33.7); MCHC 34.6 g/dl (32.0-35.9); MEAN CELL VOLUME 86.6 fl (80-96); MEAN PLT VOLUME 8.7 fl (7.5-11.1); PLATELET COUNT 174 K/MM3 (134-434); RDW 13.6 % (11.9-15.9); WHITE BLOOD COUNT 14.2 K/mm3 (4.0-10.0)
[2017-02-14] MEDS: DOCUSATE SODIUM 100 MG CAPSULE (FP) PO SCH ×3 (06:43→21:17)
[2017-02-14] MEDS: GABAPENTIN 300 MG CAPSULE (FP) PO SCH ×3 (06:43→21:17)
[2017-02-14] MEDS: LACTATED RINGERS SOLUTION 1,000 ML IV SCH ×2 (06:43→17:59)
[2017-02-14] MEDS: INSULIN SLIDING SCALE (NOVOLOG) 1 VIAL SQ SCH (06:43)
[2017-02-14 06:58] LABS: ANION GAP 7 (8-16); CALCIUM 8.5 mg/dL (8.5-10.1); CO2 33 mmol/L (21-32); CREATININE 0.6 mg/dL (0.7-1.3); GLUCOSE,RANDOM 109 mg/dL (74-106)
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
--- NOTE | 2017-02-14 10:09 | PN ---
Progress Note (short form) - Note Progress Note: Pain Follow up Continue MOTION PICTURE FILM EXAMINER for today. Stella Higgins MD.
[2017-02-14] MEDS ORDERED: PT OWN MED DRAWER 7, Y5N ONE (10:46)
[2017-02-14] MEDS: DULoxetine HCL 30 MG CAPSULE.DR (FP) PO SCH (10:48)
[2017-02-14] MEDS: SENNOSIDES 8.6MG TABLET (FP) PO SCH ×2 (10:49→21:18)
[2017-02-14] MEDS: LOSARTAN 50MG/HCTZ 12.5MG 1 TAB (FP) PO SCH (10:50)
[2017-02-14] MEDS: rOPINIRole HCL 1 MG TABLET (FP) PO SCH ×2 (10:50→21:16)
[2017-02-14] MEDS: MUPIROCIN 2% TOPICAL OINTMENT FOR DECOLONIZATION NS SCH ×2 (10:57→21:11)
[2017-02-14] MEDS: POLYETHYLENE GLYCOL 3350 119 GM BTL PO SCH ×2 (11:05→21:12)
[2017-02-14] MEDS: METOPROLOL SUCCINATE 50 MG TAB.SR.24H (FP) PO SCH (11:14)
[2017-02-14] MEDS ORDERED: ACETAMINOPHEN 1000 MG/100 ML VIAL (NON FORMULARY) IVPB PRN (11:42)
--- NOTE | 2017-02-14 12:08 | PN ---
Teaching Attending Note Name of Resident: Randi Davey ATTENDING PHYSICIAN STATEMENT I saw and evaluated the patient. I reviewed the resident's note and discussed the case with the resident. I agree with the resident's findings and plan as documented. SUBJECTIVE: Pt seen and examined in the ICU. Still with significant pain despite dilaudid WIRE BENDER HAND pump. Has not had bowel movements and has mild left sided abdominal pain. OBJECTIVE: Last Vital Signs Temp Pulse Resp BP Pulse Ox 99.4 F 80 15 118/67 99 02/14/17 10:00 02/14/17 11:58 02/14/17 11:58 02/14/17 11:58 02/14/17 11:58 Intake & Output 02/11/17 02/12/17 02/13/17 02/14/17 23:59 23:59 23:59 23:59 Intake Total 950 5875 1890 900 Output Total 4105 2005 980 Balance 950 1770 -115 -80 Weight 243 lb 1.6 oz 241 lb 5 oz Gen: NAD lying supine Heart: RRR Lung: decreased breath sounds at the bases Abd: soft, mild TTP left, no rebound Back: drain with serosanguinous drainage Ext: no edema CBC, BMP 02/14/17 06:00 02/14/17 06:00 Active Medications Acetaminophen (Ofirmev Injection -) 1,000 mg IVPB Q6H PRN PRN Reason: FEVER OR PAIN Atorvastatin Calcium (Lipitor -) 20 mg PO HS [facility] Last Admin: 02/13/17 21:15 Dose: 20 mg Bupropion HCl (Wellbutrin Xl -) 150 mg PO DAILY [facility] Last Admin: 02/14/17 10:52 Dose: 150 mg Chlorhexidine Gluconate (Hibiclens For Decolonization -) 1 applic TP [facility] Last Admin: 02/13/17 21:15 Dose: 1 applic Cyclobenzaprine HCl (Flexeril -) 10 mg PO [facility] Last Admin: 02/13/17 21:14 Dose: 10 mg Docusate Sodium (Colace -) 100 mg PO TID [facility] Last Admin: 02/14/17 06:43 Dose: 100 mg Duloxetine HCl (Cymbalta -) 120 mg PO DAILY [facility] Last Admin: 02/14/17 10:48 Dose: 120 mg Gabapentin (Neurontin -) 600 mg PO TID [facility] Last Admin: 02/14/17 06:43 Dose: 600 mg HCTZ/Losartan Potassium (Hyzaar -) 1 tab PO DAILY [facility] Last Admin: 02/14/17 10:50 Dose: 1 tab Hydromorphone HCl (Dilaudid Solar System Designer -) 10 mg WIRE BENDER HAND WIRE BENDER HAND [facility] PRN Reason: Protocol Stop: 02/15/17 15:46 Last Admin: 02/13/17 18:22 Dose: Not Given Lactated Ringer's (Lactated Ringers Solution) 1,000 mls @ 75 mls/hr IV ASDIR [facility] Last Admin: 02/14/17 06:43 Dose: 75 mls/hr Insulin Aspart (Novolog Vial Sliding Scale -) 1 vial SQ ACBK [facility] PRN Reason: Protocol Last Admin: 02/14/17 06:43 Dose: Not Given Melatonin (Melatonin) 5 mg PO HS PRN PRN Reason: INSOMNIA Last Admin: 02/14/17 10:51 Dose: 5 mg Metoprolol Succinate (Toprol Xl -) 50 mg PO DAILY [facility] Last Admin: 02/14/17 11:14 Dose: 50 mg Mirtazapine (Remeron -) 30 mg PO HS [facility] Last Admin: 02/13/17 21:15 Dose: 30 mg Mupirocin (Bactroban Ointment (For Decolonization) -) 1 applic NS BID [facility] Stop: 02/17/17 21:59 Last Admin: 02/14/17 10:57 Dose: 1 applic Ondansetron HCl (Zofran Injection) 4 mg IVPUSH Q6H PRN PRN Reason: NAUSEA AND/OR VOMITING Polyethylene Glycol (Miralax (For Daily Use) -) 17 gm PO BID [facility] Last Admin: 02/14/17 11:05 Dose: 17 grams Ropinirole HCl (Requip -) 3 mg PO BID [facility] Last Admin: 02/14/17 10:50 Dose: 3 mg Senna (Senna -) 1 tab PO BID [facility] Last Admin: 02/14/17 10:49 Dose: 1 tab ASSESSMENT AND PLAN: s/p Removal of hardware/revision of laminectomy L2-S1/partial corpectomy/ posterior fusion T12-S1 Obstructive Sleep Apnea HTN DM Hyperlipidemia - pain control, add IV tylenol - bowel regimen - OOB/rehab/PT, start subcutaneous heparin, transfer to floor if ok with surgery
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
[2017-02-14] MEDS: HYDROmorphone *PCA* 10MG/50ML DISP.SYRIN PCA SCH ×2 (13:20→17:59)
--- NOTE | 2017-02-14 16:01 | PN ---
Progress Note, Physician History of Present Illness: Post-op discomfort adequately controlled. - Current Medication List Current Medications: Active Medications Acetaminophen (Ofirmev Injection -) 1,000 mg IVPB Q6H PRN PRN Reason: FEVER OR PAIN Atorvastatin Calcium (Lipitor -) 20 mg PO HS [facility] Last Admin: 02/13/17 21:15 Dose: 20 mg Bupropion HCl (Wellbutrin Xl -) 150 mg PO DAILY [facility] Last Admin: 02/14/17 10:52 Dose: 150 mg Chlorhexidine Gluconate (Hibiclens For Decolonization -) 1 applic TP HS [facility] Last Admin: 02/13/17 21:15 Dose: 1 applic Cyclobenzaprine HCl (Flexeril -) 10 mg PO HS [facility] Last Admin: 02/13/17 21:14 Dose: 10 mg Docusate Sodium (Colace -) 100 mg PO TID [facility] Last Admin: 02/14/17 15:06 Dose: 100 mg Duloxetine HCl (Cymbalta -) 120 mg PO DAILY [facility] Last Admin: 02/14/17 10:48 Dose: 120 mg Gabapentin (Neurontin -) 600 mg PO TID [facility] Last Admin: 02/14/17 15:06 Dose: 600 mg HCTZ/Losartan Potassium (Hyzaar -) 1 tab PO DAILY [facility] Last Admin: 02/14/17 10:50 Dose: 1 tab Hydromorphone HCl (Dilaudid Information Technology Advisor -) 10 mg ADVANCE SCOUT ADVANCE SCOUT [facility] PRN Reason: Protocol Stop: 02/15/17 15:46 Last Admin: 02/14/17 13:20 Dose: 10 mg Lactated Ringer's (Lactated Ringers Solution) 1,000 mls @ 75 mls/hr IV ASDIR [facility] Last Admin: 02/14/17 06:43 Dose: 75 mls/hr Insulin Aspart (Novolog Vial Sliding Scale -) 1 vial SQ ACBK ENRIQUE PRN Reason: Protocol Last Admin: 02/14/17 06:43 Dose: Not Given Melatonin (Melatonin) 5 mg PO HS PRN PRN Reason: INSOMNIA Last Admin: 02/14/17 10:51 Dose: 5 mg Metoprolol Succinate (Toprol Xl -) 50 mg PO DAILY [facility] Last Admin: 02/14/17 11:14 Dose: 50 mg Mirtazapine (Remeron -) 30 mg PO [facility] Last Admin: 02/13/17 21:15 Dose: 30 mg Mupirocin (Bactroban Ointment (For Decolonization) -) 1 applic NS BID [facility] Stop: 02/17/17 21:59 Last Admin: 02/14/17 10:57 Dose: 1 applic Ondansetron HCl (Zofran Injection) 4 mg IVPUSH Q6H PRN PRN Reason: NAUSEA AND/OR VOMITING Polyethylene Glycol (Miralax (For Daily Use) -) 17 gm PO BID [facility] Last Admin: 02/14/17 11:05 Dose: 17 grams Ropinirole HCl (Requip -) 3 mg PO BID [facility] Last Admin: 02/14/17 10:50 Dose: 3 mg Senna (Senna -) 1 tab PO BID [facility] Last Admin: 02/14/17 10:49 Dose: 1 tab - Objective Vital Signs: Vital Signs Temperature 99.0 F 02/14/17 14:00 Pulse Rate 101 H 02/14/17 15:00 Respiratory Rate 20 02/14/17 15:00 Blood Pressure 155/67 02/14/17 15:00 O2 Sat by Pulse Oximetry (%) 99 02/14/17 11:58 Constitutional: Yes: No Distress, Calm Neck: Yes: Supple Cardiovascular: Yes: Regular Rate and Rhythm Respiratory: Yes: Regular, Diminished Gastrointestinal: Yes: Normal Bowel Sounds, Soft Edema: No Labs: CBC, BMP 02/14/17 06:00 02/14/17 06:00 INR, PTT INR 1.04 (0.82-1.09) 02/11/17 06:00 Problem List - Problems (1) Diabetes mellitus Code(s): E11.9 - TYPE 2 DIABETES MELLITUS WITHOUT COMPLICATIONS Qualifiers: Diabetes mellitus type: type 2 Diabetes mellitus complication status: without complication Diabetes mellitus long-term insulin use: unspecified intermodal customer service insulin use status Qualified Code(s): E11.9 - Type 2 diabetes mellitus without complications (2) H/O laminectomy Code(s): Z98.890 - OTHER SPECIFIED POSTPROCEDURAL STATES (3) Hyperlipidemia Code(s): E78.5 - HYPERLIPIDEMIA, UNSPECIFIED Qualifiers: Hyperlipidemia type: pure hypercholesterolemia Qualified Code(s): E78.00 - Pure hypercholesterolemia, unspecified; E78.0 - Pure hypercholesterolemia (4) Hypertension Code(s): I10 - ESSENTIAL (PRIMARY) HYPERTENSION Qualifiers: Hypertension type: essential hypertension Qualified Code(s): I10 - Essential (primary) hypertension Assessment/Plan 1. History of spinal fusion, POD#2 post removal and revision of T12-S1 hardware , revision of L2-S1 laminectomy and posterior spinal fusion T12-S1 2. Hypertension 3. Diabetes Mellitus 4. Hypercholesterolemia 5. History of anxiety/depression 6. Obstructive Sleep Apnea syndrome PLAN: 1. Continue Hyzaar qd 2. Continue Toprol XL 50 qd 3. Continue Lipitor 20 qhs 4. DVT prophylaxis, recommend initiation of ASA once cleared surgically 5. OOB/rehab/PT, start subcutaneous heparin, transfer to floor
--- NOTE | 2017-02-14 19:10 | PN ---
Teaching Attending Note Name of Resident: Jen Jackson ATTENDING PHYSICIAN STATEMENT I saw and evaluated the patient. I reviewed the resident's note and discussed the case with the resident. I agree with the resident's findings and plan as documented. SUBJECTIVE: no fever or chills. has back pain with radiation to LE b/l with lateral numbness OBJECTIVE: NAD CV : RRR Lungs: CTAB ABd: soft, NT, ND , NL BS Ext : no edema Neuro : limited eval of proximal strength at level of hip and knees due to pain. ankle dorsiflexion and plantar flexion 5/5 . knee jerk 1+ b/l Nl sensation to l ight touch A/P : 71-year-old man with a history of HTN, hyperlipidemia, type 2 DM, depression, lumbar fusion who came with worsening back pain . 1- Back pain s/p revision and fusion : - cont SUPERVISOR LANDSCAPE - monitor neuro exam - DVT PX when OK with surgeon 2- HTN: cont hyzaar, and BB 3- DM : cont SSI 4- constipation > bowel regimen HLOC
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
[2017-02-14] MEDS: CHLORHEXIDINE GLUCONATE 4% CLEANSER FOR DECOLONIZATION TP SCH (21:12)
[2017-02-14] MEDS ORDERED: MIRTAZAPINE 15 MG TABLET (FP) ONE (21:14)
[2017-02-14] MEDS: MIRTAZAPINE 30 MG TABLET (FP) PO SCH (21:16)
[2017-02-14] MEDS: ATORVASTATIN CA 20 MG TABLET (FP) PO SCH (21:17)
[2017-02-14] MEDS: CYCLOBENZAPRINE HCL 10 MG TABLET (FP) PO SCH (21:18)
[2017-02-15] MEDS: INSULIN SLIDING SCALE (NOVOLOG) 1 VIAL SQ SCH (06:06)
[2017-02-15] MEDS: GABAPENTIN 300 MG CAPSULE (FP) PO SCH ×2 (06:23→14:45)
[2017-02-15] MEDS: DOCUSATE SODIUM 100 MG CAPSULE (FP) PO SCH ×2 (06:23→14:45)
[2017-02-15 06:33] LABS: MCH 30.8 pg (25.7-33.7); MCHC 35.6 g/dl (32.0-35.9); MEAN CELL VOLUME 86.6 fl (80-96); MEAN PLT VOLUME 9.3 fl (7.5-11.1); PLATELET COUNT 173 K/MM3 (134-434); RDW 13.3 % (11.9-15.9); WHITE BLOOD COUNT 13.7 K/mm3 (4.0-10.0)
[2017-02-15 06:56] LABS: ANION GAP 7 (8-16); CALCIUM 8.8 mg/dL (8.5-10.1); CO2 34 mmol/L (21-32); CREATININE 0.4 mg/dL (0.7-1.3); GLUCOSE,RANDOM 97 mg/dL (74-106); PHOSPHOROUS 3.3 mg/dL (2.5-4.9)
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
[2017-02-15] MEDS ORDERED: oxyCODONE HCL 5 MG TABLET PO PRN (09:18)
[2017-02-15] MEDS ORDERED: HYDROmorphone HCL CARPU-JECT 2 MG/1 ML DISP.SYRIN IVPB PRN ×2 (09:19→15:18)
[2017-02-15] MEDS ORDERED: PT OWN MED DRAWER 7, Y5N ONE ×2 (09:21→23:43)
--- NOTE | 2017-02-15 09:23 | PN ---
Progress Note (short form) - Note Progress Note: Anesthesiology post op follow up, Pain Management: Post op day three, s/p T12-S1 revision of fusion. Patient still in pain despite ROAD FREIGHT CONDUCTOR, used 6mg over 12 hours. Will convert to oral analgesics with IV dilaudid for breakthrough pain control. Dept of anesthesia will sign off care at this time, Feel free to consult the service again if pain control is difficult.
[2017-02-15] MEDS: DULoxetine HCL 30 MG CAPSULE.DR (FP) PO SCH (09:41)
[2017-02-15] MEDS: LOSARTAN 50MG/HCTZ 12.5MG 1 TAB (FP) PO SCH (09:42)
[2017-02-15] MEDS: rOPINIRole HCL 1 MG TABLET (FP) PO SCH (09:42)
[2017-02-15] MEDS: SENNOSIDES 8.6MG TABLET (FP) PO SCH (09:43)
[2017-02-15] MEDS: METOPROLOL SUCCINATE 50 MG TAB.SR.24H (FP) PO SCH (09:44)
[2017-02-15] MEDS: MUPIROCIN 2% TOPICAL OINTMENT FOR DECOLONIZATION NS SCH (09:45)
[2017-02-15] MEDS: POLYETHYLENE GLYCOL 3350 119 GM BTL PO SCH (09:45)
[2017-02-15] MEDS ORDERED: LACTULOSE 20 GM/30 ML UDC (FOR ORAL USE ONLY) PO ONE (10:15)
--- NOTE | 2017-02-15 10:31 | PATH ---
Surgical Pathology Report Patient Name: DARNELL AVILA [facility]. Rec. #: [id number] /Age/Gender: 1945 (Age: 71) / M Account: [id number] Location: ICU CAR INSPECTOR Taken: 02/12/2017 Received: 02/13/2017 Reported: 02/15/2017 Physicians: Surya Juarez M.D. Specimen(s) Received OLD HARDWARE Clinical History Compression of lumbar root, L5-S1, stenosis, pseudoarthrosis Final Diagnosis OLD HARDWARE, REMOVAL: HARDWARE, DESCRIBED (GROSS EXAMINATION ONLY). Electronically Signed Brittany Macias M.D. Gross Description Received fresh labeled "old hardware," are 2 lee metallic, curved rods averaging 19.5 cm in length. Also received within the same container are 31 metallic screws and portions of hardware ranging from 0.8-7.3 cm in greatest dimension. No soft tissue is present. No sections are submitted, gross only. 02/13/2017 [facility]02/13/2017
--- NOTE | 2017-02-15 13:17 | PN ---
Progress Note, Physician History of Present Illness: S/p T12-S1 revision of fusion being weaned off [employer]. - Current Medication List Current Medications: Active Medications Acetaminophen (Ofirmev Injection -) 1,000 mg IVPB Q6H PRN PRN Reason: FEVER OR PAIN Last Admin: 02/14/17 17:59 Dose: 1,000 mg Atorvastatin Calcium (Lipitor -) 20 mg PO HS [facility] Last Admin: 02/14/17 21:17 Dose: 20 mg Bupropion HCl (Wellbutrin Xl -) 150 mg PO DAILY [facility] Last Admin: 02/15/17 09:44 Dose: 150 mg Chlorhexidine Gluconate (Hibiclens For Decolonization -) 1 applic TP HS [facility] Last Admin: 02/14/17 21:12 Dose: 1 applic Cyclobenzaprine HCl (Flexeril -) 10 mg PO [facility] Last Admin: 02/14/17 21:18 Dose: 10 mg Docusate Sodium (Colace -) 100 mg PO TID [facility] Last Admin: 02/15/17 06:23 Dose: 100 mg Duloxetine HCl (Cymbalta -) 120 mg PO DAILY [facility] Last Admin: 02/15/17 09:41 Dose: 120 mg Gabapentin (Neurontin -) 600 mg PO TID [facility] Last Admin: 02/15/17 06:23 Dose: 600 mg HCTZ/Losartan Potassium (Hyzaar -) 1 tab PO DAILY [facility] Last Admin: 02/15/17 09:42 Dose: 1 tab Hydromorphone HCl (Dilaudid Injection -) 2 mg IVPB Q4H PRN PRN Reason: PAIN Lactated Ringer's (Lactated Ringers Solution) 1,000 mls @ 75 mls/hr IV ASDIR [facility] Last Admin: 02/14/17 17:59 Dose: 75 mls/hr Insulin Aspart (Novolog Vial Sliding Scale -) 1 vial SQ ACBK [facility] PRN Reason: Protocol Last Admin: 02/15/17 06:06 Dose: Not Given Melatonin (Melatonin) 5 mg PO HS PRN PRN Reason: INSOMNIA Last Admin: 02/14/17 10:51 Dose: 5 mg Metoprolol Succinate (Toprol Xl -) 50 mg PO DAILY [facility] Last Admin: 02/15/17 09:44 Dose: 50 mg Mirtazapine (Remeron -) 30 mg PO [facility] Last Admin: 02/14/17 21:16 Dose: 30 mg Mupirocin (Bactroban Ointment (For Decolonization) -) 1 applic NS BID [facility] Stop: 02/17/17 21:59 Last Admin: 02/15/17 09:45 Dose: 1 applic Ondansetron HCl (Zofran Injection) 4 mg IVPUSH Q6H PRN PRN Reason: NAUSEA AND/OR VOMITING Oxycodone HCl (Roxicodone -) 30 mg PO Q4H PRN PRN Reason: PAIN Polyethylene Glycol (Miralax (For Daily Use) -) 17 gm PO BID [facility] Last Admin: 02/15/17 09:45 Dose: 17 grams Ropinirole HCl (Requip -) 3 mg PO BID [facility] Last Admin: 02/15/17 09:42 Dose: 3 mg Senna (Senna -) 1 tab PO BID [facility] Last Admin: 02/15/17 09:43 Dose: 1 tab - Objective Vital Signs: Vital Signs Temperature 99.3 F 02/15/17 10:00 Pulse Rate 76 02/15/17 12:00 Respiratory Rate 13 02/15/17 12:00 Blood Pressure 109/65 02/15/17 12:00 O2 Sat by Pulse Oximetry (%) 99 02/15/17 08:42 Constitutional: Yes: No Distress, Calm Neck: Yes: Supple Cardiovascular: Yes: Regular Rate and Rhythm Respiratory: Yes: Regular, Diminished Gastrointestinal: Yes: Normal Bowel Sounds, Soft Edema: No Labs: CBC, BMP 02/15/17 05:00 02/15/17 05:00 INR, PTT INR 1.04 (0.82-1.09) 02/11/17 06:00 - ....Imaging EKG: Report Reviewed (Tele: [facility]) Problem List - Problems (1) Diabetes mellitus Code(s): E11.9 - TYPE 2 DIABETES MELLITUS WITHOUT COMPLICATIONS Qualifiers: Diabetes mellitus type: type 2 Diabetes mellitus complication status: without complication Diabetes mellitus skilled nursing insulin use: unspecified skilled nursing insulin use status Qualified Code(s): E11.9 - Type 2 diabetes mellitus without complications (2) H/O laminectomy Code(s): Z98.890 - OTHER SPECIFIED POSTPROCEDURAL STATES (3) Hyperlipidemia Code(s): E78.5 - HYPERLIPIDEMIA, UNSPECIFIED Qualifiers: Hyperlipidemia type: pure hypercholesterolemia Qualified Code(s): E78.00 - Pure hypercholesterolemia, unspecified; E78.0 - Pure hypercholesterolemia (4) Hypertension Code(s): I10 - ESSENTIAL (PRIMARY) HYPERTENSION Qualifiers: Hypertension type: essential hypertension Qualified Code(s): I10 - Essential (primary) hypertension Assessment/Plan 1. History of spinal fusion, POD#3 post removal and revision of T12-S1 hardware , revision of L2-S1 laminectomy and posterior spinal fusion T12-S1 2. Hypertension 3. Diabetes Mellitus 4. Hypercholesterolemia 5. History of anxiety/depression 6. Obstructive Sleep Apnea syndrome PLAN: 1. Continue Hyzaar qd 2. Continue Toprol XL 50 qd 3. Continue Lipitor 20 qhs 4. DVT prophylaxis, recommend initiation of ASA once cleared surgically 5. OOB/rehab/PT, start subcutaneous heparin, transfer to floor, pain management
--- NOTE | 2017-02-15 13:20 | PN ---
Teaching Attending Note Name of Resident: Adonis Reyes ATTENDING PHYSICIAN STATEMENT I saw and evaluated the patient. I reviewed the resident's note and discussed the case with the resident. I agree with the resident's findings and plan as documented. SUBJECTIVE: Patient seen and examined in the ICU. Awake and alert. Back pain seems a little better today. No CP or SOB. OBJECTIVE: Intake & Output 02/12/17 02/13/17 02/14/17 02/15/17 23:59 23:59 23:59 23:59 Intake Total 5875 1890 1800 900 Output Total 4105 2004 1999 104 Balance 1770 -115 -200 -140 Weight 243 lb 1.6 oz 241 lb 5 oz 239 lb Last Vital Signs Temp Pulse Resp BP Pulse Ox 99.3 F 76 13 109/65 99 02/15/17 10:00 02/15/17 12:00 02/15/17 12:00 02/15/17 12:00 02/15/17 08:42 Active Medications Acetaminophen (Ofirmev Injection -) 1,000 mg IVPB Q6H PRN PRN Reason: FEVER OR PAIN Last Admin: 02/14/17 17:59 Dose: 1,000 mg Atorvastatin Calcium (Lipitor -) 20 mg PO HS [facility] Last Admin: 02/14/17 21:17 Dose: 20 mg Bupropion HCl (Wellbutrin Xl -) 150 mg PO DAILY [facility] Last Admin: 02/15/17 09:44 Dose: 150 mg Chlorhexidine Gluconate (Hibiclens For Decolonization -) 1 applic TP HS [facility] Last Admin: 02/14/17 21:12 Dose: 1 applic Cyclobenzaprine HCl (Flexeril -) 10 mg PO HS [facility] Last Admin: 02/14/17 21:18 Dose: 10 mg Docusate Sodium (Colace -) 100 mg PO TID [facility] Last Admin: 02/15/17 06:23 Dose: 100 mg Duloxetine HCl (Cymbalta -) 120 mg PO DAILY [facility] Last Admin: 02/15/17 09:41 Dose: 120 mg Gabapentin (Neurontin -) 600 mg PO TID [facility] Last Admin: 02/15/17 06:23 Dose: 600 mg HCTZ/Losartan Potassium (Hyzaar -) 1 tab PO DAILY [facility] Last Admin: 02/15/17 09:42 Dose: 1 tab Hydromorphone HCl (Dilaudid Injection -) 2 mg IVPB Q4H PRN PRN Reason: PAIN Lactated Ringer's (Lactated Ringers Solution) 1,000 mls @ 75 mls/hr IV ASDIR [facility] Last Admin: 02/14/17 17:59 Dose: 75 mls/hr Insulin Aspart (Novolog Vial Sliding Scale -) 1 vial SQ ACBK [facility] PRN Reason: Protocol Last Admin: 02/15/17 06:06 Dose: Not Given Melatonin (Melatonin) 5 mg PO HS PRN PRN Reason: INSOMNIA Last Admin: 02/14/17 10:51 Dose: 5 mg Metoprolol Succinate (Toprol Xl -) 50 mg PO DAILY [facility] Last Admin: 02/15/17 09:44 Dose: 50 mg Mirtazapine (Remeron -) 30 mg PO HS [facility] Last Admin: 02/14/17 21:16 Dose: 30 mg Mupirocin (Bactroban Ointment (For Decolonization) -) 1 applic NS BID [facility] Stop: 02/17/17 21:59 Last Admin: 02/15/17 09:45 Dose: 1 applic Ondansetron HCl (Zofran Injection) 4 mg IVPUSH Q6H PRN PRN Reason: NAUSEA AND/OR VOMITING Oxycodone HCl (Roxicodone -) 30 mg PO Q4H PRN PRN Reason: PAIN Polyethylene Glycol (Miralax (For Daily Use) -) 17 gm PO BID [facility] Last Admin: 02/15/17 09:45 Dose: 17 grams Ropinirole HCl (Requip -) 3 mg PO BID [facility] Last Admin: 02/15/17 09:42 Dose: 3 mg Senna (Senna -) 1 tab PO BID [facility] Last Admin: 02/15/17 09:43 Dose: 1 tab GENERAL: awake, alert, and fully oriented, NAD HEAD: Normal with no signs of trauma. EYES: (-) Pallor (-) Icterus NECK: supple. LUNGS: Breath sounds equal, clear to auscultation bilaterally, HEART: Regular rate and rhythm, S1, S2 ABDOMEN: Soft, (+) BS, NT EXTREMITIES: 2+ pulses, warm, well-perfused, no edema. NEUROLOGICAL: Non-focal PSYCH: Normal mood, normal affect. SKIN: Warm, dry Laboratory Results - last 24 hr 02/14/17 02/15/17 02/15/17 20:56 05:00 05:00 WBC 13.7 H RBC 3.21 L Hgb 9.9 L Hct 27.8 L MCV 86.6 MCH 30.8 MCHC 35.6 RDW 13.3 Plt Count 173 MPV 9.3 Sodium 136 Potassium 4.1 Chloride 95 L Carbon Dioxide 34 H Anion Gap 7 L BUN 11 D Creatinine 0.4 L D POC Glucometer 114.09339 Random Glucose 97 Calcium 8.8 Phosphorus 3.3 Magnesium 2.0 02/15/17 05:47 WBC RBC Hgb Hct MCV MCH MCHC RDW Plt Count MPV Sodium Potassium Chloride Carbon Dioxide Anion Gap BUN Creatinine POC Glucometer 108.00615 Random Glucose Calcium Phosphorus Magnesium Problem List - Problems (1) H/O laminectomy Code(s): Z98.890 - OTHER SPECIFIED POSTPROCEDURAL STATES (2) Anxiety Code(s): F41.9 - ANXIETY DISORDER, UNSPECIFIED (3) Diabetes mellitus Code(s): E11.9 - TYPE 2 DIABETES MELLITUS WITHOUT COMPLICATIONS Qualifiers: Diabetes mellitus type: type 2 Diabetes mellitus complication status: without complication Diabetes mellitus retirement insulin use: unspecified retirement insulin use status Qualified Code(s): E11.9 - Type 2 diabetes mellitus without complications (4) Lumbar spine root compression Code(s): M54.16 - RADICULOPATHY, LUMBAR REGION (5) Smoker Code(s): F17.200 - NICOTINE DEPENDENCE, UNSPECIFIED, UNCOMPLICATED Assessment/Plan Pain control Incentive Spirometer Decrease IVF BD TX PRN Monitor VELASQUEZ output O2 as needed Continue BP meds Mechanical VTE prophylaxis ASA and SQ Heparin when OK with surgery Dr Robertson Critical care time spent in reviewing chart, evaluating patient and formulating plan - 36 minutes. Problem List - Problems (1) Hypertension Code(s): I10 - ESSENTIAL (PRIMARY) HYPERTENSION Qualifiers: Hypertension type: essential hypertension Qualified Code(s): I10 - Essential (primary) hypertension (2) Hyperlipidemia Code(s): E78.5 - HYPERLIPIDEMIA, UNSPECIFIED Qualifiers: Hyperlipidemia type: pure hypercholesterolemia Qualified Code(s): E78.00 - Pure hypercholesterolemia, unspecified; E78.0 - Pure hypercholesterolemia (3) Smoker Code(s): F17.200 - NICOTINE DEPENDENCE, UNSPECIFIED, UNCOMPLICATED (4) Lumbar spine root compression Code(s): M54.16 - RADICULOPATHY, LUMBAR REGION
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
[2017-02-15] MEDS: LACTATED RINGERS SOLUTION 1,000 ML IV SCH (14:45)
[2017-02-15] MEDS ORDERED: ONDANSETRON 4 MG/2 ML VIAL IVPUSH PRN (15:18)
[2017-02-15] MEDS ORDERED: LACTATED RINGERS SOLUTION 1,000 ML IV SCH (15:18)
[2017-02-15] MEDS ORDERED: ACETAMINOPHEN 1000 MG/100 ML VIAL (NON FORMULARY) IVPB PRN (15:18)
[2017-02-15] MEDS ORDERED: MELATONIN 5 MG TABLETS PO PRN (15:18)
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
--- NOTE | 2017-02-15 17:47 | PN ---
Teaching Attending Note Name of Resident: Jen Jackson ATTENDING PHYSICIAN STATEMENT I saw and evaluated the patient. I reviewed the resident's note and discussed the case with the resident. I agree with the resident's findings and plan as documented. SUBJECTIVE: no fever or chills . has no abd pain , no CP . cont to have back pain OBJECTIVE: NAD CV : RRR Lungs: CTAB ABd: soft, NT, ND , NL BS Ext : no edema Neuro : limited eval of proximal strength at level of hip and knees due to pain. ankle dorsiflexion and plantar flexion 5/5 . knee jerk 1+ b/l Nl sensation to light touch A/P : 71-year-old man with a history of HTN, hyperlipidemia, type 2 DM, depression, lumbar fusion who came with worsening back pain . 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 cont currrent redimen of IV dilaudid and po oxyodone . can adjust if needed - monitor neuro exam - DVT PX when OK with surgeon 2- HTN: cont hyzaar, and BB 3- DM : cont SSI 4- Constipation: declined rectal exam today. will try again. passed flatus . cont bowel regimen . add lactulose start a diet HLOC
[2017-02-15] MEDS: oxyCODONE HCL 5 MG TABLET PO PRN (18:41)
[2017-02-15] MEDS ORDERED: MIRTAZAPINE 15 MG TABLET (FP) ONE (21:44)
[2017-02-15] MEDS ORDERED: DOCUSATE SODIUM 100 MG CAPSULE (FP) PO SCH (22:00)
[2017-02-15] MEDS ORDERED: CYCLOBENZAPRINE HCL 10 MG TABLET (FP) PO SCH (22:00)
[2017-02-15] MEDS ORDERED: ATORVASTATIN CA 20 MG TABLET (FP) PO SCH (22:00)
[2017-02-15] MEDS ORDERED: rOPINIRole HCL 1 MG TABLET (FP) PO SCH (22:00)
[2017-02-15] MEDS ORDERED: SENNOSIDES 8.6MG TABLET (FP) PO SCH (22:00)
[2017-02-15] MEDS ORDERED: MIRTAZAPINE 30 MG TABLET (FP) PO SCH (22:00)
[2017-02-15] MEDS ORDERED: GABAPENTIN 300 MG CAPSULE (FP) PO SCH (22:00)
[2017-02-15] MEDS ORDERED: MUPIROCIN 2% TOPICAL OINTMENT FOR DECOLONIZATION NS SCH (22:00)
[2017-02-15] MEDS ORDERED: POLYETHYLENE GLYCOL 3350 119 GM BTL PO SCH (22:00)
[2017-02-15] MEDS ORDERED: CHLORHEXIDINE GLUCONATE 4% CLEANSER FOR DECOLONIZATION TP SCH (22:00)
[2017-02-16] MEDS: oxyCODONE HCL 5 MG TABLET PO PRN (00:02)
[2017-02-16] MEDS ORDERED: HYDROmorphone HCL CARPU-JECT 2 MG/1 ML DISP.SYRIN IVPB PRN (00:55)
[2017-02-16] MEDS ORDERED: MELATONIN 5 MG TABLETS PO PRN (00:55)
[2017-02-16] MEDS ORDERED: oxyCODONE HCL 5 MG TABLET PO PRN (00:55)
[2017-02-16] MEDS: DOCUSATE SODIUM 100 MG CAPSULE (FP) PO SCH ×3 (06:26→22:07)
[2017-02-16] MEDS: LACTATED RINGERS SOLUTION 1,000 ML IV SCH (06:26)
[2017-02-16] MEDS: GABAPENTIN 300 MG CAPSULE (FP) PO SCH ×3 (06:26→22:06)
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
[2017-02-16] MEDS ORDERED: INSULIN SLIDING SCALE (NOVOLOG) 1 VIAL SQ SCH (07:00)
[2017-02-16] MEDS: INSULIN SLIDING SCALE (NOVOLOG) 1 VIAL SQ SCH (07:14)
[2017-02-16 07:17] LABS: MCH 29.6 pg (25.7-33.7); MCHC 34.6 g/dl (32.0-35.9); MEAN CELL VOLUME 85.5 fl (80-96); MEAN PLT VOLUME 8.7 fl (7.5-11.1); PLATELET COUNT 201 K/MM3 (134-434); RDW 13.3 % (11.9-15.9); WHITE BLOOD COUNT 11.7 K/mm3 (4.0-10.0)
[2017-02-16 07:44] LABS: ANION GAP 5 (8-16); CALCIUM 8.3 mg/dL (8.5-10.1); CO2 33 mmol/L (21-32); GLUCOSE,RANDOM 94 mg/dL (74-106)
[2017-02-16 07:45] LABS: CREATININE 0.5 mg/dL (0.7-1.3); PHOSPHOROUS 3.3 mg/dL (2.5-4.9)
[2017-02-16 08:28] LABS: MAGNESIUM 2.2 mg/dL (1.8-2.4)
[2017-02-16] MEDS ORDERED: DULoxetine HCL 30 MG CAPSULE.DR (FP) PO SCH (10:00)
[2017-02-16] MEDS ORDERED: LOSARTAN 50MG/HCTZ 12.5MG 1 TAB (FP) PO SCH (10:00)
[2017-02-16] MEDS ORDERED: METOPROLOL SUCCINATE 50 MG TAB.SR.24H (FP) PO SCH (10:00)
[2017-02-16] MEDS ORDERED: POLYETHYLENE GLYCOL 3350 119 GM BTL PO SCH (10:00)
[2017-02-16] MEDS ORDERED: PT OWN MED DRAWER 7, Y5N ONE (12:03)
[2017-02-16] MEDS: DULoxetine HCL 30 MG CAPSULE.DR (FP) PO SCH (12:04)
[2017-02-16] MEDS: METOPROLOL SUCCINATE 50 MG TAB.SR.24H (FP) PO SCH (12:04)
[2017-02-16] MEDS: SENNOSIDES 8.6MG TABLET (FP) PO SCH ×2 (12:04→22:06)
[2017-02-16] MEDS: rOPINIRole HCL 3 MG TABLET PO SCH ×2 (12:05→22:07)
[2017-02-16] MEDS: LOSARTAN 50MG/HCTZ 12.5MG 1 TAB (FP) PO SCH (12:05)
--- NOTE | 2017-02-16 12:37 | PN ---
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 - Current Medication List Current Medications: Active Medications Atorvastatin Calcium (Lipitor -) 20 mg PO HS [facility] Bupropion HCl (Wellbutrin Xl -) 150 mg PO DAILY [facility] Last Admin: 02/16/17 12:05 Dose: 150 mg Cyclobenzaprine HCl (Flexeril -) 10 mg PO HS [facility] Docusate Sodium (Colace -) 100 mg PO TID [facility] Last Admin: 02/16/17 06:26 Dose: 100 mg Duloxetine HCl (Cymbalta -) 120 mg PO DAILY [facility] Last Admin: 02/16/17 12:04 Dose: 120 mg Gabapentin (Neurontin -) 600 mg PO TID [facility] Last Admin: 02/16/17 06:26 Dose: 600 mg HCTZ/Losartan Potassium (Hyzaar -) 1 tab PO DAILY [facility] Last Admin: 02/16/17 12:05 Dose: 1 tab Hydromorphone HCl (Dilaudid Injection -) 2 mg IVPB Q4H PRN PRN Reason: PAIN Lactated Ringer's (Lactated Ringers Solution) 1,000 mls @ 75 mls/hr IV ASDIR [facility] Last Admin: 02/16/17 06:26 Dose: 75 mls/hr Insulin Aspart (Novolog Vial Sliding Scale -) 1 vial SQ ACBK [facility] PRN Reason: Protocol Last Admin: 02/16/17 07:14 Dose: Not Given Melatonin (Melatonin) 5 mg PO HS PRN PRN Reason: INSOMNIA Metoprolol Succinate (Toprol Xl -) 50 mg PO DAILY [facility] Last Admin: 02/16/17 12:04 Dose: 50 mg Mirtazapine (Remeron -) 30 mg PO HS [facility] Oxycodone HCl (Roxicodone -) 30 mg PO Q4H PRN PRN Reason: PAIN Polyethylene Glycol (Miralax (For Daily Use) -) 17 gm PO BID [facility] Last Admin: 02/16/17 12:08 Dose: Not Given Ropinirole HCl (Requip -) 3 mg PO BID [facility] Last Admin: 02/16/17 12:05 Dose: 3 mg Senna (Senna -) 1 tab PO BID [facility] Last Admin: 02/16/17 12:04 Dose: 1 tab - Objective Vital Signs: Vital Signs Temperature 98.5 F 02/15/17 22:00 Pulse Rate 78 02/15/17 22:00 Respiratory Rate 18 02/15/17 22:00 Blood Pressure 119/62 02/15/17 22:00 O2 Sat by Pulse Oximetry (%) 96 02/15/17 21:00 Constitutional: Yes: No Distress, Calm Neck: Yes: Supple Cardiovascular: Yes: Regular Rate and Rhythm Respiratory: Yes: Regular, Diminished Gastrointestinal: Yes: Normal Bowel Sounds, Soft Edema: No Labs: CBC, BMP 02/16/17 06:45 02/16/17 06:45 INR, PTT INR 1.04 (0.82-1.09) 02/11/17 06:00 Problem List - Problems (1) Diabetes mellitus Code(s): E11.9 - TYPE 2 DIABETES MELLITUS WITHOUT COMPLICATIONS Qualifiers: Diabetes mellitus type: type 2 Diabetes mellitus complication status: without complication Diabetes mellitus terminal operations supervisor insulin use: unspecified terminal operations supervisor insulin use status Qualified Code(s): E11.9 - Type 2 diabetes mellitus without complications (2) H/O laminectomy Code(s): Z98.890 - OTHER SPECIFIED POSTPROCEDURAL STATES (3) Hyperlipidemia Code(s): E78.5 - HYPERLIPIDEMIA, UNSPECIFIED Qualifiers: Hyperlipidemia type: pure hypercholesterolemia Qualified Code(s): E78.00 - Pure hypercholesterolemia, unspecified; E78.0 - Pure hypercholesterolemia (4) Hypertension Code(s): I10 - ESSENTIAL (PRIMARY) HYPERTENSION Qualifiers: Hypertension type: essential hypertension Qualified Code(s): I10 - Essential (primary) hypertension Assessment/Plan 1. History of spinal fusion, POD#4 post removal and revision of T12-S1 hardware , revision of L2-S1 laminectomy and posterior spinal fusion T12-S1 2. Hypertension 3. Diabetes Mellitus 4. Hypercholesterolemia 5. History of anxiety/depression 6. Obstructive Sleep Apnea syndrome PLAN: 1. Continue Hyzaar qd 2. Continue Toprol XL 50 qd 3. Continue Lipitor 20 qhs 4. DVT prophylaxis, recommend initiation of ASA once cleared surgically 5. OOB/rehab/PT, start subcutaneous heparin, pain management with bowel regimen
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
--- NOTE | 2017-02-16 18:17 | PN ---
Teaching Attending Note Name of Resident: Katie Herrera ATTENDING PHYSICIAN STATEMENT I saw and evaluated the patient. I reviewed the resident's note and discussed the case with the resident. I agree with the resident's findings and plan as documented. SUBJECTIVE: pain is better controlled on current regimen . not using dilaudid OBJECTIVE: NAD CV : RRR Lungs: CTAB ABd: soft, NT, ND , NL BS Ext : no edema Neuro : limited eval of proximal strength at level of hip and knees due to pain. ankle dorsiflexion and plantar flexion 5/5 . knee jerk 1+ b/l Nl sensation to light touch VELASQUEZ drain with sanguinus fluid A/P : 71-year-old man with a history of HTN, hyperlipidemia, type 2 DM, depression, lumbar fusion who came with worsening back pain . 1- Back pain s/p revision and fusion : - Dc dilaudid and cont oxycodone - monitor neuro exam - Unable to reach Dr. Suarez through his service to check on plan for Drain and safty of starting heparin sq 2- HTN: cont hyzaar, and BB 3- DM : cont SSI 4- Constipation: had BMS . cont bowel regimen HLOC Dispo : family and pt are interested in rehab. CM updated. can't dc until we reach surgeon re. VELASQUEZ drain .
[2017-02-16] MEDS ORDERED: MIRTAZAPINE 15 MG TABLET (FP) ONE (21:01)
[2017-02-16] MEDS ORDERED: ATORVASTATIN CA 20 MG TABLET (FP) PO SCH (22:00)
[2017-02-16] MEDS ORDERED: CYCLOBENZAPRINE HCL 10 MG TABLET (FP) PO SCH (22:00)
[2017-02-16] MEDS ORDERED: MIRTAZAPINE 30 MG TABLET (FP) PO SCH (22:00)
[2017-02-17] MEDS: LACTATED RINGERS SOLUTION 1,000 ML IV SCH (01:30)
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
[2017-02-17] MEDS ORDERED: MELATONIN 5 MG TABLETS PO ONE (01:55)
[2017-02-17] MEDS: DOCUSATE SODIUM 100 MG CAPSULE (FP) PO SCH (05:54)
[2017-02-17] MEDS: GABAPENTIN 300 MG CAPSULE (FP) PO SCH (05:55)
[2017-02-17] MEDS: INSULIN SLIDING SCALE (NOVOLOG) 1 VIAL SQ SCH (06:03)
[2017-02-17] MEDS ORDERED: PT OWN MED DRAWER 7, Y5N ONE ×2 (06:20→11:15)
[2017-02-17] MEDS ORDERED: POLYETHYLENE GLYCOL 3350 119 GM BTL PO SCH (10:00)
[2017-02-17] MEDS: DULoxetine HCL 30 MG CAPSULE.DR (FP) PO SCH (11:28)
[2017-02-17] MEDS: LOSARTAN 50MG/HCTZ 12.5MG 1 TAB (FP) PO SCH (11:29)
[2017-02-17] MEDS: METOPROLOL SUCCINATE 50 MG TAB.SR.24H (FP) PO SCH (11:30)
[2017-02-17] MEDS: rOPINIRole HCL 3 MG TABLET PO SCH (11:30)
[2017-02-17] MEDS: SENNOSIDES 8.6MG TABLET (FP) PO SCH (11:30)
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
--- NOTE | 2017-02-17 14:32 | PN ---
Progress Note (short form) - Note Progress Note: Chief Complaint: Events noted, notes reviewed, POD#5 post removal and revision of T12-S1 hardware, revision of L2-S1 laminectomy and posterior spinal fusion T12-S1, complaining of persistent discomfort lower back and bilateral lower extremities right greater than the left, denies any chest pain or dyspnea History of Present Illness: Seen and examined. Events noted, notes reviewed, POD#5 post removal and revision of T12-S1 hardware, revision of L2-S1 laminectomy and posterior spinal fusion T12-S1, complaining of persistent discomfort lower back and bilateral lower extremities right greater than the left, denies any chest pain or dyspnea - Current Medication List Atorvastatin Calcium (Lipitor -) 20 mg PO HS [facility] Bupropion HCl (Wellbutrin Xl -) 150 mg PO DAILY [facility] Last Admin: 02/16/17 12:05 Dose: 150 mg Cyclobenzaprine HCl (Flexeril -) 10 mg PO HS [facility] Docusate Sodium (Colace -) 100 mg PO TID [facility] Last Admin: 02/16/17 06:26 Dose: 100 mg Duloxetine HCl (Cymbalta -) 120 mg PO DAILY [facility] Last Admin: 02/16/17 12:04 Dose: 120 mg Gabapentin (Neurontin -) 600 mg PO TID [facility] Last Admin: 02/16/17 06:26 Dose: 600 mg HCTZ/Losartan Potassium (Hyzaar -) 1 tab PO DAILY [facility] Last Admin: 02/16/17 12:05 Dose: 1 tab Hydromorphone HCl (Dilaudid Injection -) 2 mg IVPB Q4H PRN PRN Reason: PAIN Lactated Ringer's (Lactated Ringers Solution) 1,000 mls @ 75 mls/hr IV ASDIR [facility] Last Admin: 02/16/17 06:26 Dose: 75 mls/hr Insulin Aspart (Novolog Vial Sliding Scale -) 1 vial SQ ACBK [facility] PRN Reason: Protocol Last Admin: 02/16/17 07:14 Dose: Not Given Melatonin (Melatonin) 5 mg PO HS PRN PRN Reason: INSOMNIA Metoprolol Succinate (Toprol Xl -) 50 mg PO DAILY [facility] Last Admin: 02/16/17 12:04 Dose: 50 mg Mirtazapine (Remeron -) [address] [facility] Oxycodone HCl (Roxicodone -) 30 mg PO Q4H PRN PRN Reason: PAIN Polyethylene Glycol (Miralax (For Daily Use) -) 17 gm PO BID [facility] Last Admin: 02/16/17 12:08 Dose: Not Given Ropinirole HCl (Requip -) 3 mg PO BID [facility] Last Admin: 02/16/17 12:05 Dose: 3 mg Senna (Senna -) 1 tab PO BID [facility] Last Admin: 02/16/17 12:04 Dose: 1 tab - Objective Vital Signs: Last Vital Signs Temp Pulse Resp BP Pulse Ox 99.0 F 81 20 124/74 95 02/17/17 06:00 02/17/17 06:00 02/17/17 06:00 02/17/17 06:00 02/16/17 21:00 Intake & Output 02/14/17 02/15/17 02/16/17 02/17/17 23:59 23:59 23:59 23:59 Intake Total 1800 1265 2725 785 Output Total 2000 1350 600 300 Balance -200 -85 2125 485 Weight 241 lb 5 oz 239 lb EYES: KAILEY, EOMI Neck: Supple Negative JVD No Bruit Respiratory: Clear to A&P Bilaterally Cardiovascular: S1 S2 Regular Rate and Rhythm No Murmurs Gastrointestinal: Soft Benign Normal Bowel Sounds Ext: No Edema Labs: CBC, BMP 02/16/17 06:45 02/16/17 06:45 INR, PTT INR 1.04 (0.82-1.09) 02/11/17 06:00 Assessment/Plan ASSESSMENT: 1. History of spinal fusion, POD#5 post removal and revision of T12-S1 hardware , revision of L2-S1 laminectomy and posterior spinal fusion T12-S1 2. Hypertension 3. Diabetes Mellitus 4. Hypercholesterolemia 5. History of anxiety/depression PLAN: 1. Continue Hyzaar 2. Continue Toprol XL 3. Continue Lipitor 4. Recommend initiation of daily Aspirin therapy unless it is absolutely contraindicated 5. To be discharged home and followup in our office as needed Sylvester Delgado MD
--- NOTE | 2017-02-17 14:34 | PN ---
Teaching Attending Note Name of Resident: Katie Herrera ATTENDING PHYSICIAN STATEMENT I saw and evaluated the patient. I reviewed the resident's note and discussed the case with the resident. I agree with the resident's findings and plan as documented. SUBJECTIVE: no fever or chills, pain is better. was had delirium last night and pulled his VELASQUEZ drain OBJECTIVE: NAD CV: RRR Lungs: CTAB ABd: soft, NT, ND , NL BS Ext : no edema Neuro : limited eval of proximal strength at level of hip and knees due to pain. ankle dorsiflexion and plantar flexion 5/5 . knee jerk 1+ b/l Nl sensation to light touch upper back with a dressing over wounds A/P : 71-year-old man with a history of HTN, hyperlipidemia, type 2 DM, depression, lumbar fusion who came with worsening back pain . 1- Back pain s/p revision and fusion : - still unable to reach dr. Suarez. mutiple calls placed through service - VELASQUEZ drain out - cont pain meds 2- HTN: cont hyzaar, and BB 4- Constipation: cont bowel regimen stable for dc to rehab
[2017-02-17 14:41] VITALS: BP 131/76; PULSE 92; TEMP 98.5
== END 2017-02-17 12:10 | DRG 460 ==
LOC: JER 19:46 → JERBED 02-09 12:01 → J8W 02-09 15:14 → JSAMEDAYSX 02-12 13:00 → JICU 02-12 20:21 → J4S 02-13 19:02 → J5S 02-15 18:06
PROVIDERS: ADMIT Internal Medicine; ATTEND Internal Medicine
PROC: 0WBL0ZZ Excision of Lower Back, Open Approach (ICD-10-PCS; 2017-02-12)
PROC: 0WQL0ZZ Repair Lower Back, Open Approach (ICD-10-PCS; 2017-02-12)
PROC: 0QB10ZZ Excision of Sacrum, Open Approach (ICD-10-PCS; 2017-02-12)
PROC: 0SG30Z1 (ICD-10-PCS; 2017-02-12)
PROC: 0WPL0YZ Removal of Other Device from Lower Back, Open Approach (ICD-10-PCS; 2017-02-12)
PROC: 0WJL0ZZ Inspection of Lower Back, Open Approach (ICD-10-PCS; 2017-02-12)
PROC: 0RGA0Z1 (ICD-10-PCS; principal; 2017-02-12 08:00)
DX: M96.0 Pseudarthrosis after fusion or arthrodesis (principal); M43.19 Spondylolisthesis, multiple sites in spine; E11.9 Type 2 diabetes mellitus without complications; I10 Essential (primary) hypertension; G47.33 Obstructive sleep apnea (adult) (pediatric); M54.9 Dorsalgia, unspecified; M54.16 Radiculopathy, lumbar region; F41.8 Other specified anxiety disorders; E78.5 Hyperlipidemia, unspecified; K59.00 Constipation, unspecified; F17.210 Nicotine dependence, cigarettes, uncomplicated; M48.07 Spinal stenosis, lumbosacral region
CPT/HCPCS: 36415; 71010-TC; 80048; 80053; 80061; 81003; 83036; 83721; 83735; 84100; 84443; 85025; 85027; 85610; 85730; 86850; 86900; 86901; 88300-TC; 93005; 93010; 94010; 94760; 97116-GP; 97162-GP; 99285-25; J1644

== ENCOUNTER 2017-05-21 08:00 | Inpatient (IN) | payer OTHER, BC ==
[2017-05-22 12:51] VITALS: BMI 28.7
[2017-05-28] MEDS ORDERED: THROMBIN (BOVINE) 5,000 UNIT VIAL TP ONE ×3 (08:16→14:35)
[2017-05-28] MEDS ORDERED: PROMETHAZINE HCL 25 MG/1 ML VIAL IVPB PRN ×2 (12:26→12:27)
[2017-05-28] MEDS ORDERED: ONDANSETRON 4 MG/2 ML VIAL IVPUSH PRN ×3 (12:26→16:33)
[2017-05-28] MEDS ORDERED: DEXAMETHASONE SOD PHOSPHATE 4 MG/1 ML VIAL IVPUSH ONE (12:27)
[2017-05-28] MEDS ORDERED: LACTATED RINGERS SOLUTION 1,000 ML IV SCH ×2 (12:30→16:45)
[2017-05-28] MEDS ORDERED: MIDAZOLAM HCL 2 MG/2 ML SINGLE DOSE VIAL ONE (12:49)
[2017-05-28] MEDS ORDERED: HEPARIN NA (PORCINE) 5,000 UNITS/ML 1ML VIAL ONE (13:10)
[2017-05-28] MEDS ORDERED: THROMBIN (BOVINE) 20,000 UNIT VIAL TP ONE (13:11)
[2017-05-28] MEDS ORDERED: fentaNYL CITRATE 250 MCG/5 ML VIAL ONE (13:16)
[2017-05-28] MEDS ORDERED: PROPOFOL 20 ML ONE ×8 (13:17→14:50)
[2017-05-28] MEDS ORDERED: ROCURONIUM BROMIDE 50 MG/5 ML VIAL ONE (13:17)
[2017-05-28] MEDS ORDERED: SUCCINYLCHOLINE CHLORIDE 200 MG/10 ML VIAL ONE (13:18)
[2017-05-28] MEDS ORDERED: ceFAZolin SODIUM 1 GM VIAL ONE (13:39)
[2017-05-28] MEDS ORDERED: SODIUM CHLORIDE 0.9% P/F 10 ML VIAL IJ ONE (13:39)
[2017-05-28] MEDS ORDERED: VANCOMYCIN 1,000 MG VIAL (RESTRICTED TO ID ONLY) ONE (13:46)
[2017-05-28] MEDS ORDERED: ceFAZolin SODIUM 1 GM VIAL IVPB ONE ×2 (13:47)
[2017-05-28] MEDS ORDERED: VANCOMYCIN 1,000 MG VIAL (RESTRICTED TO ID ONLY) IVPB ONE ×2 (13:51)
[2017-05-28] MEDS ORDERED: TRANEXAMIC ACID 1000 MG/10 ML VIAL ONE (13:52)
[2017-05-28] MEDS ORDERED: DEXAMETHASONE SOD PHOSPHATE 4 MG/1 ML VIAL ONE (14:33)
[2017-05-28] MEDS ORDERED: ONDANSETRON 4 MG/2 ML VIAL ONE (14:33)
[2017-05-28] MEDS ORDERED: ePHEDrine SULFATE 50 MG/1 ML AMPULE ONE (14:50)
[2017-05-28] MEDS ORDERED: GLYCOPYRROLATE 0.2 MG/1 ML VIAL ONE (15:55)
[2017-05-28] MEDS ORDERED: NEOSTIGMINE METHYLSULFATE 0.5 MG/ML - 10 ML MDV ONE (15:55)
--- NOTE | 2017-05-28 16:25 | PN ---
Progress Note (short form) - Note Progress Note: 71M s/p revision L4, L5, S1 laminectomies; inspection of hardware & fusion mass ; Left L4-L5 foraminotomy; Left L5 neurolysis POD #0. 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 -Allison-operative antibiotics. -Mechanical DVT PPx. Only: SCD's, BINH's. -Incentive spirometry. -PT/OT/Rehab, OOB. -WBAT B/L LE. -NPO until flatus, then ADAT. -f/u drain output. -f/u AM labs. -f/u OR wound cultures; very low clinical concern for infection (do not treat without discussing with surgical team). -OK to elevate head of bed as tolerated. -Maintain mckeon catheter until ambulating. -Care per medical hospitalist team. -Will follow. -Discharge planning. Rodrigo Suarez MD (Orthopaedic Surgery).
--- NOTE | 2017-05-28 16:27 | OP ---
Operative Note - Note: Operative Date: 05/28/17 Pre-Operative Diagnosis: 1. Post-traumatic L5-S1 spondylolisthesis. 2. Post- traumatic Left L5, & S1 neuropraxia & radiculopathy Operation: 1. Revision L4, L5, S1 laminectomies. 2. Inspection of hardware & fusion mass. 3. Left L4-L5 foraminotomy. 4. Left L5 neurolysis. 5. Revision L5-S1 posterolateral arthrodesis Findings: See dictation Post-Operative Diagnosis: Same as Pre-op Surgeon: Rodrigo Suarez Adjunct Professor Of Voice: Levi Suarez (Co-Surgeon) Anesthesiologist/TREATING PLANT OPERATOR: Romain Tate Anesthesia: General Estimated Blood Loss (mls): 150 Drains & Tubes with Location: 1 x deep HemoVac Fluid Volume Replaced (mls): 1,500 Operative Report Dictated: Yes
[2017-05-28] MEDS ORDERED: diazePAM CARPU-JECT 10 MG/2 ML DISP.SYRIN IVPUSH PRN (16:33)
[2017-05-28] MEDS ORDERED: HYDROmorphone *PCA* 6MG/30ML DISP.SYRIN PCA ONE ×2 (16:39→17:00)
[2017-05-28] MEDS ORDERED: ACETAMINOPHEN 1000 MG/100 ML VIAL (NON FORMULARY) IVPB ONE (17:15)
--- NOTE | 2017-05-28 17:40 | HP ---
Admitting History and Physical - Admission Chief Complaint: medicine consult History of Present Illness: HPI This is a 71 year old male with pmhx of HTN, HLD, s/p revision L4, L5, S1 laminectomies; inspection of hardware & fusion mass; Left L4-L5 foraminotomy; Left L5 neurolysis. Pt seen in PACU, he complains of pain but denies sob, chest pain, abdominal pain, n/v. History Source: Patient, Medical Record Limitations to Obtaining History: No Limitations - Past Medical History Cardiovascular: Yes: HTN, Hyperlipdemia Endocrine: Yes: Diabetes Mellitus - Past Surgical History Past Surgical History: Yes: Laminectomy - Advance Directives Advance Directives: Yes: Health Care Proxy - Smoking History Smoking history: Current every day smoker Have you smoked in the past 12 months: Yes Aproximately how many cigarettes per day: 6 - Alcohol/Substance Use Hx Alcohol Use: Yes (stopped) History of Substance Use: reports: None - Social History History of Recent Travel: No Home Medications - Allergies Allergies/Adverse Reactions: Allergies Allergy/AdvReac Type Severity Reaction Status Date / Time Penicillins Allergy Hives Verified 05/22/17 12:37 erythromycin base AdvReac Verified 05/22/17 12:37 - Home Medications Home Medications: Ambulatory Orders Atorvastatin Ca [Lipitor] 20 mg PO HS 02/08/17 Duloxetine HCl [Cymbalta] 120 mg PO DAILY 02/08/17 Gabapentin [Neurontin] 600 mg PO Q8H 02/08/17 Metoprolol Succinate [Toprol Xl] 50 mg PO DAILY 02/08/17 Mirtazapine [Remeron -] 30 mg PO HS 02/08/17 Ropinirole HCl [Ropinirole ER] 6 mg PO HS 02/08/17 Bupropion HCl [Bupropion Xl] 150 mg PO DAILY 02/09/17 Cyclobenzaprine HCl [Flexeril -] 10 mg PO HS 02/09/17 Losartan 50Mg/Hctz 12.5MG [Hyzaar -] 1 tab PO DAILY 02/09/17 Oxycodone HCl 30 mg PO TID PRN #30 tab 02/17/17 Polyethylene Glycol 3350 [Miralax 119 gm Btl -] 17 gm PO HS PRN 05/28/17 Review of Systems - Review of Systems Constitutional: reports: No Symptoms Eyes: reports: No Symptoms HENT: reports: No Symptoms Neck: reports: No Symptoms Cardiovascular: reports: No Symptoms Respiratory: reports: No Symptoms Gastrointestinal: reports: No Symptoms Genitourinary: reports: No Symptoms Musculoskeletal: reports: Back Pain Integumentary: reports: No Symptoms Neurological: reports: No Symptoms Endocrine: reports: No Symptoms Hematology/Lymphatic: reports: No Symptoms Psychiatric: reports: No Symptoms Physical Examination Vital Signs: Vital Signs Temperature 98.2 F 05/28/17 16:30 Pulse Rate 68 05/28/17 16:30 Respiratory Rate 16 05/28/17 16:30 Blood Pressure 130/60 05/28/17 16:30 O2 Sat by Pulse Oximetry (%) 96 05/28/17 16:30 Constitutional: Yes: Well Nourished Eyes: Yes: Conjunctiva Clear HENT: Yes: WNL Neck: Yes: WNL Cardiovascular: Yes: Regular Rate and Rhythm, S1, S2 Respiratory: Yes: Regular, CTA Bilaterally Gastrointestinal: Yes: Normal Bowel Sounds, Soft Renal/: Yes: Mckeon Present Musculoskeletal: Yes: Back Pain Edema: Yes Edema: LLE: Trace, RLE: Trace Peripheral Pulses WNL: Yes Wound/Incision: Yes: Draining (back kristina drain in tact, serrous drainage) Neurological: Yes: Alert, Oriented, Cran Nerves II-XII Intact, Unsteady Gait ( pre existing), Weakness Psychiatric: Yes: Alert, Oriented Problem List - Problems (1) Intractable back pain Code(s): M54.9 - DORSALGIA, UNSPECIFIED (2) S/P spinal fusion Code(s): Z98.1 - ARTHRODESIS STATUS (3) Hyperlipidemia Code(s): E78.5 - HYPERLIPIDEMIA, UNSPECIFIED Qualifiers: Hyperlipidemia type: pure hypercholesterolemia Qualified Code(s): E78.00 - Pure hypercholesterolemia, unspecified; E78.0 - Pure hypercholesterolemia (4) Hypertension Code(s): I10 - ESSENTIAL (PRIMARY) HYPERTENSION Qualifiers: Hypertension type: essential hypertension Qualified Code(s): I10 - Essential (primary) hypertension Assessment/Plan Assessment: 71 year old male admitted with s/p revision L4, L5 1. L4, L5 revision - s/p L4-L5 revision S1 laminectomies; inspection of hardware & fusion mass; Left L4-L5 foraminotomy; Left L5 neurolysis today - Pain control with TRANSFORMER MAKER - Follow cultures, however do not treat unless d/w ortho team - Continue abx while drain placed - Strict I's/o's (drain , mckeon ) - NPO until pass flatuance - Continue IVF - Elevate HOB as tolerated - DC mckeon once ambulating - Flexeril - Remeron - Change fluids, NS 83cc/hr - SNF for rehab 2. HTN - Controlled - Toprol xl 50mg day - HCTZ /losartan 1 tab daily 3. Depression - Wellbutrin, cymbalta Visit type - Emergency Visit Emergency Visit: No - New Patient This patient is new to me today: Yes Date on this admission: 05/28/17 - Critical Care Critical Care patient: No Hospitalist Screening - Colonoscopy Questionnaire Colonoscopy Questionnaire: Colonoscopy Questionnaire - Patient: 50 - 75 years old and never had a screening colonoscopy: Unknown History of colon or rectal polyps, or CA: Unknown History of IBD, Crohn's disease or UC: Unknown History of abdominal radiation therapy as a child: Unknown - Relative: 1 with colon or rectal CA, or polyps at age 60 or younger: Unknown Colon or rectal CA diagnosed at age 45 or younger: Unknown Multiple relatives with colon or rectal CA: Unknown - Outcome: Screening Result: Negative Screen
[2017-05-28] MEDS: ACETAMINOPHEN 1000 MG/100 ML VIAL (NON FORMULARY) IVPB SCH (19:10)
[2017-05-28] MEDS: HYDROmorphone *PCA* 6MG/30ML DISP.SYRIN PCA SCH (19:10)
[2017-05-28] MEDS: SODIUM CHLORIDE 1,000 ML IV SCH (19:10)
[2017-05-28] MEDS: ceFAZolin 2 GRAM PREMIX BAG IVPB SCH (20:43)
[2017-05-28] MEDS: CYCLOBENZAPRINE HCL 10 MG TABLET (FP) PO SCH (21:07)
[2017-05-28] MEDS: MIRTAZAPINE 15 MG TABLET (FP) PO SCH (21:07)
[2017-05-28] MEDS ORDERED: ROPINIROLE HCL 6 MG PO SCH (22:00)
[2017-05-29] MEDS: ACETAMINOPHEN 1000 MG/100 ML VIAL (NON FORMULARY) IVPB SCH ×2 (00:20→09:55)
[2017-05-29] MEDS: SODIUM CHLORIDE 1,000 ML IV SCH ×2 (00:52→16:54)
[2017-05-29] MEDS ORDERED: VANCOMYCIN 1 GRAM (PRE-DOCKED) 1,000 MG/250 ML BAG IVPB ONE (01:00)
[2017-05-29] MEDS: HYDROmorphone *PCA* 6MG/30ML DISP.SYRIN PCA SCH ×3 (02:20→16:41)
[2017-05-29] MEDS: ceFAZolin 2 GRAM PREMIX BAG IVPB SCH (04:02)
[2017-05-29 08:18] LABS: ANION GAP 10 (8-16); BLOOD UREA NITROGEN 11 mg/dL (7-18); CHLORIDE 104 mmol/L (98-107); CO2 28 mmol/L (21-32); GLUCOSE,RANDOM 97 mg/dL (74-106); POTASSIUM 3.4 mmol/L (3.5-5.1); SODIUM 142 mmol/L (136-145)
[2017-05-29 08:20] LABS: CREATININE 0.6 mg/dL (0.7-1.3)
[2017-05-29 08:26] LABS: HEMATOCRIT 29.2 % (35.4-49); HEMOGLOBIN 9.8 GM/dL (11.7-16.9); MCH 27.3 pg (25.7-33.7); MCHC 33.4 g/dl (32.0-35.9); MEAN CELL VOLUME 81.8 fl (80-96); MEAN PLT VOLUME 8.7 fl (7.5-11.1); PLATELET COUNT 213 K/MM3 (134-434); RBC 3.57 M/mm3 (4.00-5.60); RDW 14.5 % (11.9-15.9); WHITE BLOOD COUNT 11.4 K/mm3 (4.0-10.0)
[2017-05-29] MEDS: DULoxetine HCL 30 MG CAPSULE.DR (FP) PO SCH (09:56)
[2017-05-29] MEDS: LOSARTAN 50MG/HCTZ 12.5MG 1 TAB (FP) PO SCH (09:57)
[2017-05-29] MEDS ORDERED: PT OWN MED DRAWER 7, Y5N ONE (09:58)
--- NOTE | 2017-05-29 11:00 | PN ---
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
--- NOTE | 2017-05-29 12:11 | OP ---
DATE OF OPERATION: 05/28/2017 SURGEON: Rodrigo Suarez MD CO-SURGEON: Levi Suarez MD PREOPERATIVE DIAGNOSIS: Persistent radiculopathy and possible segmental instability lumbosacral junction, left L5-S1 radiculopathy following a previous instrumented posterolateral arthrodesis of the lumbosacral spine. POSTOPERATIVE DIAGNOSIS: Fusion mass appears solid, adherence of L5 and S1 nerve roots in the foramen of L5-S1, no impingement of the spondylolisthesis on these associated nerve roots. ANTIBIOTICS GIVEN: Kefzol 2 g, vancomycin 1 g. OPERATION PERFORMED: 1. Revision laminectomy L4 and L5. 2. Foraminotomy L5, left. 3. Neurolysis at L5. 4. Inspection of fusion mass. OPERATION DETAILS: After patient was correctly identified, brought into the operating room. Timeout was called. Imaging was available for intraoperative evaluation. C-arm was utilized. Prepped and draped in the usual routine manner with Betadine scrub solution, wiped with alcohol, DuraPrep applied, and a window drape applied. Three-quarters of the original incision was opened. Dissection was taken through the subcutaneous tissue down straight through the fascia to the epidural space defect. This was opened and the hardware without any difficulty exposed, both left and right-hand sides. Grasping the S1 spinous process as well as the top part of the rods both left and right-hand sides with delonte holders, attempts at mobilizing lumbosacral junction proved futile. This was solidly fixed and appeared uncomplicated. On that basis, we elected to go ahead and perform a revision laminectomy. This was fibrous and osseous bone in the original place of the lamina at L4 and L5. On the basis of this, the lateral andrade of the vertebral canal were excised using osteotomes to free and open up and create a plane that was operating from normal tissue, namely bone to abnormal, which was the adherence of the canal with the actual dura onto vertebral bodies. Once this had been performed, there was an easy stripping of the entire thecal elements of the bone deep to this. The L5 nerve root was clearly seen. This was entrapped in the foramen, and the foramen was excised completely, thus, bringing about a complete foraminotomy, and the perineural tissue resected completely, thus, completing a neurolysis on the left-hand side. This component was performed by Dr. Levi Suarez as the co-surgeon. The thoughts of removing the cage preoperatively were entertained. The area was dissected. Fibrous tissue lying over the actual cage itself seemed to be completely free of the nerves both at L5 and S1, and they were relaxed and free around the area. The cage, in order to immobilize the dura completely because of the hardness of the dura and dural tissue, it was elected to leave this all well alone for fear of damaging and harming the dural sac. This would have posed greater problems. The cage itself appeared to be solidly inserted and was not impinging on any neural elements that we could visually see ourselves. This completed, therefore, a foraminotomy and neurolysis. The foramina had been L5-S1, the neurolysis at the nerve root of L5, and an inspection of fusion mass both at the posterolateral arthrodesis site as well as it appeared in the interbody sites all completely well maintained and normal. This gentlemans preoperative pain was left L5-S1 radiculopathy pain and also difficulty getting on and off his bed because of severe pain in his lower back. The nature of this at this present stage appears to be unexplainable based on what we have seen intraoperatively here today. This fusion mass appears to be solidifying and as solid as it is right now, there is no segment instability and the neural elements are completely free. The wounds were thoroughly lavaged with placing the epidural space to stop some epidural bleeding. The wound was closed in layers, muscle 1 Vicryl, fascia 1 Vicryl, subcutaneous 1 and 2-0 Vicryl, skin 3-0 Monocryl with Steri-Strips, drainage Hemovac deep x1. PLAN: For mobilization in range of comfort. OVERALL COMMENT: Operation went well, no complications. MD MARINO Mckeon/[id number]
--- NOTE | 2017-05-29 12:14 | PN ---
Physical Exam: SUBJECTIVE: Patient seen and examined. He states he feels lousy, he is in pain and wants to eat. Denies flatuance, no n/v. OBJECTIVE: Vital Signs Period Temp Pulse Resp BP Sys/Benjamin Pulse Ox Last 24 Hr 98 F-98.6 F 64-72 16-18 99-130/48-66 96-98 PE Neuro: alert, awake, cn 2-12intact, moving lower extremities 5/5 , sensory intact Pulm: clear anteriorly CV: s1 s2 rrr no mrg Abd: s nt nd + bs MSK: back drain with serous drainage : mckeon Ext: trace le edema, warm, Laboratory Results - last 24 hr 05/29/17 05/29/17 06:30 06:30 WBC 11.4 H D RBC 3.57 L Hgb 9.8 L D Hct 29.2 L D MCV 81.8 MCH 27.3 MCHC 33.4 RDW 14.5 Plt Count 213 D MPV 8.7 Sodium 142 Potassium 3.4 L Chloride 104 Carbon Dioxide 28 Anion Gap 10 BUN 11 D Creatinine 0.6 L Random Glucose 97 Calcium 8.0 L Active Medications Generic Name Dose Route Start Last Admin Trade Name Freq PRN Reason Stop Dose Admin Bupropion HCl 150 mg 05/29/17 10:00 05/29/17 09:59 Wellbutrin Xl - PO 150 mg DAILY ENRIQUE Administration Cyclobenzaprine HCl 10 mg 05/28/17 22:00 05/28/17 21:07 Flexeril - PO 10 mg HS ENRIQUE Administration Duloxetine HCl 120 mg 05/29/17 10:00 05/29/17 09:56 Cymbalta - PO 120 mg DAILY ENRIQUE Administration Fentanyl 50 mcg 05/28/17 12:26 Sublimaze Injection - IVPUSH [id number] PRN PAIN-PACU ORDER X 4 DOSES ONLY HCTZ/Losartan Potassium 1 tab 05/29/17 10:00 05/29/17 09:57 Hyzaar - PO Not Given DAILY ENRIQUE Hydromorphone HCl 6 mg 05/28/17 12:30 05/29/17 02:20 Dilaudid Inspector Hot Forgings - INSPECTOR PRINTED CIRCUIT BOARDS 06/04/17 12:27 6 mg INSPECTOR PRINTED CIRCUIT BOARDS ENRIQUE Administration Protocol Sodium Chloride 1,000 mls @ 75 mls/hr 05/29/17 12:09 Normal Saline - IV ASDIR ENRIQUE Metoprolol Succinate 50 mg 05/29/17 10:00 05/29/17 09:56 Toprol Xl - PO 50 mg DAILY ENRIQUE Administration Mirtazapine 30 mg 05/28/17 22:00 05/28/17 21:07 Remeron - PO 30 mg HS ENRIQUE Administration Non-Formulary Medication 6 mg 05/28/17 22:00 Ropinirole Hcl [Ropinirole Er] PO HS [facility] Ondansetron HCl 4 mg 05/28/17 12:26 Zofran Injection IVPUSH Q6H PRN NAUSEA AND/OR VOMITING Ondansetron HCl 4 mg 05/28/17 12:27 Zofran Injection IVPUSH Q4H PRN NAUSEA AND/OR VOMITING Ondansetron HCl 4 mg 05/28/17 16:33 Zofran Injection IVPUSH Q6H PRN NAUSEA AND/OR VOMITING Potassium Chloride 40 meq 05/29/17 12:08 Potassium Chloride Oral Liquid PO 05/29/17 12:09 ONCE ONE Promethazine HCl 12.5 mg 05/28/17 12:26 Phenergan Injection - IVPB Q6H PRN NAUSEA-FOR RESCUE AFTER 15 MIN Promethazine HCl 12.5 mg 05/28/17 12:27 Phenergan Injection - IVPB Q6H PRN NAUSEA AND/OR VOMITING Assessment: 71 year old male admitted with s/p revision L4, L5 1. L4, L5 revision - s/p L4-L5 revision S1 laminectomies; inspection of hardware & fusion mass; Left L4-L5 foraminotomy; Left L5 neurolysis today - Pain control with INSPECTOR PRINTED CIRCUIT BOARDS - Advance to regular diet - Decrease ns 75cc/hr - Follow cultures, however do not treat unless d/w ortho team - Continue abx while drain placed - DC mckeon once ambulating - Flexeril - Remeron - Post op care per ortho 2. HTN - Controlled - Toprol xl 50mg day - HCTZ /losartan 1 tab daily 3. Depression - Wellbutrin, cymbalta 4. Hypokalemia - replete 40meq x Dispo: - SNF for rehab Problem List - Problems (1) Intractable back pain Code(s): M54.9 - DORSALGIA, UNSPECIFIED (2) S/P spinal fusion Code(s): Z98.1 - ARTHRODESIS STATUS (3) Hyperlipidemia Code(s): E78.5 - HYPERLIPIDEMIA, UNSPECIFIED Qualifiers: Hyperlipidemia type: pure hypercholesterolemia Qualified Code(s): E78.00 - Pure hypercholesterolemia, unspecified; E78.0 - Pure hypercholesterolemia (4) Hypertension Code(s): I10 - ESSENTIAL (PRIMARY) HYPERTENSION Qualifiers: Hypertension type: essential hypertension Qualified Code(s): I10 - Essential (primary) hypertension Visit type - Emergency Visit Emergency Visit: Yes ED Registration Date: 05/28/17 Care time: The patient presented to the Emergency Department on the above date and was hospitalized for further evaluation of their emergent condition. - New Patient This patient is new to me today: No - Critical Care Critical Care patient: No
[2017-05-29] MEDS ORDERED: POTASSIUM CHLORIDE ORAL LIQUID 20 MEQ/15 ML PO ONE (13:00)
--- NOTE | 2017-05-29 19:22 | PN ---
Progress Note (short form) - Note Progress Note: 71M s/p revision L4, L5, S1 laminectomies; inspection of hardware & fusion mass ; Left L4-L5 foraminotomy; Left L5 neurolysis POD #1. (+) Incisional back pain. (+) Mild left buttock discomfort. (-) Acute events overnight. (-) Overnight history of chest pain, shortness of breath, nausea, vomiting, chills, sweats. (+) Mckeon catheter; (-) Flatus; (-) BM. (+) Orthostatic pre-syncope upon standing today. AVSS. Labs reviewed. PE: AAO x 3, NAD. Abdomen: soft, distended (gaseous - (+) tympanic to percussion). Incision: C/D/I. Drain intact & in place, 120cc output/24 hrs. B/L LE: Sensorimotor exam at baseline. 71M s/p revision L4, L5, S1 laminectomies; inspection of hardware & fusion mass ; Left L4-L5 foraminotomy; Left L5 neurolysis POD #1. -Pain control: RICE FARMWORKER, pain management per anaesthesia team. -Mechanical DVT PPx. Only: SCD's, BINH's. -Incentive spirometry. -PT/OT/Rehab, OOB. -WBAT B/L LE. -Soft diet. -f/u drain output. -f/u AM labs. -f/u OR wound cultures; very low clinical concern for infection (do not treat without discussing with surgical team). -OK to elevate head of bed as tolerated. -Maintain mckeon catheter until ambulating. -Care per medical hospitalist team. -Will follow. -Discharge planning. Rodrigo Suarez MD (Orthopaedic Surgery).
[2017-05-29] MEDS: MIRTAZAPINE 15 MG TABLET (FP) PO SCH (21:53)
[2017-05-29] MEDS: CYCLOBENZAPRINE HCL 10 MG TABLET (FP) PO SCH (21:53)
[2017-05-30 08:05] LABS: ANION GAP 9 (8-16); BLOOD UREA NITROGEN 14 mg/dL (7-18); CALCIUM 7.6 mg/dL (8.5-10.1); CHLORIDE 107 mmol/L (98-107); CO2 27 mmol/L (21-32); CREATININE 0.5 mg/dL (0.7-1.3); GLUCOSE,RANDOM 76 mg/dL (74-106); POTASSIUM 3.6 mmol/L (3.5-5.1); SODIUM 143 mmol/L (136-145)
[2017-05-30] MEDS: HYDROmorphone *PCA* 6MG/30ML DISP.SYRIN PCA SCH ×2 (08:51→19:02)
[2017-05-30] MEDS: DULoxetine HCL 30 MG CAPSULE.DR (FP) PO SCH (09:55)
[2017-05-30] MEDS: LOSARTAN 50MG/HCTZ 12.5MG 1 TAB (FP) PO SCH (09:56)
--- NOTE | 2017-05-30 10:35 | PN ---
Progress Note (short form) - Note Progress Note: S: Pt POD #2, S/P Spine fusion on IV SHIFT NURSE MANAGER, Pt oob doing well, O: VSS, Pt stable. Pain2-310, taking PO liquids A/P Pt offers no complaints. Doing well on IV PVA. Switching to PO meds, and then will d/c tour manager No apparent anesthetic complications noted
--- NOTE | 2017-05-30 14:19 | PN ---
Progress Note (short form) - Note Progress Note: c/o back pain relieved with SHAPER OPERATOR pump. requesting something to help sleep. deneis CP, SOB, fever, chills, N/V/C/D Current Medications Generic Name Dose Route Start Last Admin Trade Name Freq PRN Reason Stop Dose Admin Bupropion HCl 150 mg 05/29/17 10:00 05/30/17 09:57 Wellbutrin Xl - PO 150 mg DAILY ENRIQUE Administration Cyclobenzaprine HCl 10 mg 05/28/17 22:00 05/29/17 21:53 Flexeril - PO 10 mg HS ENRIQUE Administration Duloxetine HCl 120 mg 05/29/17 10:00 05/30/17 09:55 Cymbalta - PO 120 mg DAILY ENRIQUE Administration HCTZ/Losartan Potassium 1 tab 05/29/17 10:00 05/30/17 09:56 Hyzaar - PO Not Given DAILY ENRIQUE Hydromorphone HCl 6 mg 05/28/17 12:30 05/30/17 08:51 Dilaudid Public Transit Trolley Driver - SHAPER OPERATOR 06/04/17 12:27 6 mg SHAPER OPERATOR ENRIQUE Administration Protocol Sodium Chloride 1,000 mls @ 75 mls/hr 05/29/17 12:09 05/29/17 16:54 Normal Saline - IV 75 mls/hr ASDIR ENRIQUE Administration Metoprolol Succinate 50 mg 05/29/17 10:00 05/30/17 09:56 Toprol Xl - PO Not Given DAILY ENRIQUE Mirtazapine 30 mg 05/28/17 22:00 05/29/17 21:53 Remeron - PO 30 mg HS ENRIQUE Administration Non-Formulary Medication 6 mg 05/28/17 22:00 Ropinirole Hcl [Ropinirole Er] PO HS ENRIQUE Ondansetron HCl 4 mg 05/28/17 12:26 Zofran Injection IVPUSH Q6H PRN NAUSEA AND/OR VOMITING Ondansetron HCl 4 mg 05/28/17 12:27 Zofran Injection IVPUSH Q4H PRN NAUSEA AND/OR VOMITING Ondansetron HCl 4 mg 05/28/17 16:33 Zofran Injection IVPUSH Q6H PRN NAUSEA AND/OR VOMITING Promethazine HCl 12.5 mg 05/28/17 12:27 Phenergan Injection - IVPB Q6H PRN NAUSEA AND/OR VOMITING Last Vital Signs Temp Pulse Resp BP Pulse Ox 98.1 F 76 18 102/52 98 05/30/17 10:00 05/30/17 10:00 05/30/17 10:00 05/30/17 10:00 05/30/17 09:00 Intake & Output 05/27/17 05/28/17 05/29/17 05/30/17 23:59 23:59 23:59 23:59 Intake Total 1800 2475 525 Output Total 1060 2140 360 Balance 740 335 165 General NAD, refused physical exam as he was busy on the phone CBCD WBC 11.4 K/mm3 (4.0-10.0) H D 05/29/17 06:30 RBC 3.57 M/mm3 (4.00-5.60) L 05/29/17 06:30 Hgb 9.8 GM/dL (11.7-16.9) L D 05/29/17 06:30 Hct 29.2 % (35.4-49) L D 05/29/17 06:30 MCV 81.8 fl (80-96) 05/29/17 06:30 MCHC 33.4 g/dl (32.0-35.9) 05/29/17 06:30 RDW 14.5 % (11.9-15.9) 05/29/17 06:30 Plt Count 213 K/MM3 (134-434) D 05/29/17 06:30 MPV 8.7 fl (7.5-11.1) 05/29/17 06:30 CMP Sodium 143 mmol/L (136-145) 05/30/17 06:20 Potassium 3.6 mmol/L (3.5-5.1) 05/30/17 06:20 Chloride 107 mmol/L (98-107) 05/30/17 06:20 Carbon Dioxide 27 mmol/L (21-32) 05/30/17 06:20 Anion Gap 9 (8-16) 05/30/17 06:20 BUN 14 mg/dL (7-18) D 05/30/17 06:20 Creatinine 0.5 mg/dL (0.7-1.3) L 05/30/17 06:20 Calcium 7.6 mg/dL (8.5-10.1) L 05/30/17 06:20 Microbiology 05/28/17 14:50 Gram Stain - Final Wound-Other Wound Culture - Preliminary NO GROWTH OBTAINED AFTER 24 HOURS INCUBATION, REINCUBATED. 05/28/17 14:50 Gram Stain - Final Wound Wound Culture - Preliminary NO GROWTH OBTAINED AFTER 24 HOURS INCUBATION, REINCUBATED. 05/28/17 14:50 Gram Stain - Final Back Assessment and PLan: 71 year old male with PMH HTN, dyslipidemia, spinal stenosis s/p revision L4, L5 1. L4, L5 revision - s/p L4-L5 revision S1 laminectomies; inspection of hardware & fusion mass; Left L4-L5 foraminotomy; Left L5 neurolysis 05/28. on dilaudid SHAPER OPERATOR pump. as per anesthesia plan to transition to po today. will maintain mckeon until getting out of bed. encourage OOB to chair. d/c IVF as tolerating diet. further management per ortho. received prophylactic vanco x1 yesterday. cx negative. low grade fever yesterday, no signs of infection. would hold abx 2. HTN - Controlled. cont home medications 3. insomnia- start ambien prn 4. Depression - Wellbutrin, cymbalta 5. Hypokalemia- replete po 6. DVT ppx- SCD. hold pharmacologic anticoag in setting of recent neurosurgery 7. will need CARMEN when medically optimized Visit type - Emergency Visit Emergency Visit: Yes ED Registration Date: 05/28/17 Care time: The patient presented to the Emergency Department on the above date and was hospitalized for further evaluation of their emergent condition. - New Patient This patient is new to me today: Yes Date on this admission: 05/30/17 - Critical Care Critical Care patient: No - Discharge Referral Referred to [facility] Med P.C.: No
[2017-05-30] MEDS: SODIUM CHLORIDE 1,000 ML IV SCH (15:16)
[2017-05-30] MEDS ORDERED: POTASSIUM CHLORIDE ORAL LIQUID 20 MEQ/15 ML PO ONE (16:01)
[2017-05-30] MEDS: MIRTAZAPINE 15 MG TABLET (FP) PO SCH (21:42)
[2017-05-30] MEDS: CYCLOBENZAPRINE HCL 10 MG TABLET (FP) PO SCH (21:42)
[2017-05-30] MEDS: ZOLPIDEM TARTRATE 5 MG TABLET PO PRN (21:42)
[2017-05-31] MEDS: HYDROmorphone *PCA* 6MG/30ML DISP.SYRIN PCA SCH (03:53)
[2017-05-31 08:12] LABS: BASO % 0.4 % (0-2.0); EOS % 3.6 % (0-4.5); HEMATOCRIT 31.4 % (35.4-49); HEMOGLOBIN 10.6 GM/dL (11.7-16.9); LYMPH % 16.8 % (8-40); MCH 27.7 pg (25.7-33.7); MCHC 33.7 g/dl (32.0-35.9); MEAN CELL VOLUME 82.3 fl (80-96); MEAN PLT VOLUME 8.5 fl (7.5-11.1); MONO % 10.6 % (3.8-10.2); NEUT % 68.6 % (42.8-82.8); PLATELET COUNT 205 K/MM3 (134-434); RBC 3.81 M/mm3 (4.00-5.60); WHITE BLOOD COUNT 8.5 K/mm3 (4.0-10.0)
[2017-05-31 08:30] LABS: ANION GAP 11 (8-16); BLOOD UREA NITROGEN 12 mg/dL (7-18); CALCIUM 8.6 mg/dL (8.5-10.1); CHLORIDE 107 mmol/L (98-107); CO2 25 mmol/L (21-32); CREATININE 0.6 mg/dL (0.7-1.3); GLUCOSE,RANDOM 96 mg/dL (74-106); SODIUM 143 mmol/L (136-145)
[2017-05-31] MEDS ORDERED: PT OWN MED DRAWER 7, Y5N ONE (09:17)
[2017-05-31] MEDS: DULoxetine HCL 30 MG CAPSULE.DR (FP) PO SCH (09:45)
[2017-05-31] MEDS: LOSARTAN 50MG/HCTZ 12.5MG 1 TAB (FP) PO SCH (09:49)
--- NOTE | 2017-05-31 14:42 | PN ---
Physical Exam: SUBJECTIVE: Patient seen and examined at the bedside. OBJECTIVE: Did not tolerating PT today secondary to back pain Drain in place, sero sang drainage Vital Signs Period Temp Pulse Resp BP Sys/Benjamin Pulse Ox Last 24 Hr 98.2 F-99.1 F 73-88 16-20 103-153/50-67 96 GENERAL: The patient is awake, alert, and fully oriented, in no acute distress. HEAD: Normal with no signs of trauma. EYES: PERRL, extraocular movements intact, sclera anicteric, conjunctiva clear. No ptosis. LUNGS: Breath sounds equal, clear to auscultation bilaterally, no wheezes HEART: Regular rate and rhythm ABDOMEN: Soft, nontender, nondistended, normoactive bowel sounds NEUROLOGICAL: Normal speech, gait not observed. PSYCH: Normal mood, normal affect. SKIN: Warm, dry, normal turgor, no rashes or lesions noted Laboratory Results - last 24 hr 05/31/17 05/31/17 06:30 06:30 WBC 8.5 RBC 3.81 L Hgb 10.6 L Hct 31.4 L MCV 82.3 MCH 27.7 MCHC 33.7 RDW 15.0 Plt Count 205 MPV 8.5 Neutrophils % 68.6 Lymphocytes % 16.8 D Monocytes % 10.6 H Eosinophils % 3.6 Basophils % 0.4 Sodium 143 Potassium 4.0 Chloride 107 Carbon Dioxide 25 Anion Gap 11 BUN 12 Creatinine 0.6 L Random Glucose 96 D Calcium 8.6 Active Medications Generic Name Dose Route Start Last Admin Trade Name Freq PRN Reason Stop Dose Admin Bupropion HCl 150 mg 05/29/17 10:00 05/31/17 09:45 Wellbutrin Xl - PO 150 mg DAILY ENRIQUE Administration Cyclobenzaprine HCl 10 mg 05/28/17 22:00 05/30/17 21:42 Flexeril - PO 10 mg HS ENRIQUE Administration Duloxetine HCl 120 mg 05/29/17 10:00 05/31/17 09:45 Cymbalta - PO 120 mg DAILY ENRIQUE Administration HCTZ/Losartan Potassium 1 tab 05/29/17 10:00 05/31/17 09:49 Hyzaar - PO 1 tab DAILY ENRIQUE Administration Metoprolol Succinate 50 mg 05/29/17 10:00 05/31/17 09:45 Toprol Xl - PO 50 mg DAILY ENRIQUE Administration Mirtazapine 30 mg 05/28/17 22:00 05/30/17 21:42 Remeron - PO 30 mg HS ENRIQUE Administration Non-Formulary Medication 6 mg 05/28/17 22:00 Ropinirole Hcl [Ropinirole Er] PO HS ENRIQUE Ondansetron HCl 4 mg 05/28/17 12:26 Zofran Injection IVPUSH Q6H PRN NAUSEA AND/OR VOMITING Ondansetron HCl 4 mg 05/28/17 12:27 Zofran Injection IVPUSH Q4H PRN NAUSEA AND/OR VOMITING Ondansetron HCl 4 mg 05/28/17 16:33 Zofran Injection IVPUSH Q6H PRN NAUSEA AND/OR VOMITING Promethazine HCl 12.5 mg 05/28/17 12:27 Phenergan Injection - IVPB Q6H PRN NAUSEA AND/OR VOMITING Zolpidem Tartrate 5 mg 05/30/17 15:59 05/30/17 21:42 Ambien - PO 5 mg HS PRN Administration INSOMNIA ASSESSMENT/PLAN: Patient is a 71 year old male with a significant past medical history of HTN, dyslipidemia, spinal stenosis s/p revision L4, L5, s/p L4-L5 revision S1 laminectomies; inspection of hardware & fusion mass; Left L4-L5 foraminotomy; Left L5 neurolysis 05/28/17 Ortho L4, L5 revision/L4-L5 revision S1 laminectomies; inspection of hardware & fusion mass; Left L4-L5 foraminotomy, Left L5 neurolysis today Pain control per anesthesia On Flexiril, Remeron Wound cultures with no growth afebrile, wbc normal Monitor intake and output Physical therapy Monitor drain output Hypertension, controlled On Toprol sl, HCTZ/losartan F.E.N. Fluids: tolerating PO Electrolytes: monitor Nutrition: regular diet Prophy: DVT: SCDs GI: deferred
[2017-05-31] MEDS ORDERED: BISACODYL 10 MG SUPP.RECT RC PRN (18:04)
[2017-05-31] MEDS: ZOLPIDEM TARTRATE 5 MG TABLET PO PRN (22:20)
[2017-05-31] MEDS: CYCLOBENZAPRINE HCL 10 MG TABLET (FP) PO SCH (22:20)
[2017-05-31] MEDS: MIRTAZAPINE 15 MG TABLET (FP) PO SCH (22:20)
[2017-06-01] MEDS ORDERED: PT OWN MED DRAWER 7, Y5N ONE (09:13)
[2017-06-01] MEDS ORDERED: oxyCODONE HCL 5 MG TABLET PO PRN (09:37)
--- NOTE | 2017-06-01 09:42 | PN ---
Progress Note (short form) - Note Progress Note: ANESTHESIOLOGY: CERTIFIED WELDING INSPECTOR stopped this morning. PO oxycodone and PO Tylenol ordered. Will sign off. Reconsult if needed.
[2017-06-01] MEDS: oxyCODONE HCL 5 MG TABLET PO PRN ×3 (09:48→22:23)
[2017-06-01] MEDS: LOSARTAN 50MG/HCTZ 12.5MG 1 TAB (FP) PO SCH (09:49)
[2017-06-01] MEDS: ACETAMINOPHEN 325 MG TABLET (FP) PO PRN ×3 (09:49→22:23)
[2017-06-01] MEDS: DULoxetine HCL 30 MG CAPSULE.DR (FP) PO SCH (09:49)
[2017-06-01 10:29] LABS: BASO % 0.6 % (0-2.0); EOS % 3.7 % (0-4.5); HEMATOCRIT 31.4 % (35.4-49); HEMOGLOBIN 10.7 GM/dL (11.7-16.9); LYMPH % 19.2 % (8-40); MCH 27.6 pg (25.7-33.7); MCHC 33.9 g/dl (32.0-35.9); MEAN CELL VOLUME 81.2 fl (80-96); MEAN PLT VOLUME 8.4 fl (7.5-11.1); MONO % 8.5 % (3.8-10.2); PLATELET COUNT 228 K/MM3 (134-434); RBC 3.87 M/mm3 (4.00-5.60); RDW 15.1 % (11.9-15.9); WHITE BLOOD COUNT 7.8 K/mm3 (4.0-10.0)
[2017-06-01 10:30] LABS: CHLORIDE 106 mmol/L (98-107); POTASSIUM 3.7 mmol/L (3.5-5.1); SODIUM 142 mmol/L (136-145)
[2017-06-01 10:34] LABS: ALBUMIN 2.5 g/dl (3.4-5.0); ALK PHOS 83 U/L (45-117); ANION GAP 12 (8-16); BILIRUBIN,TOTAL 0.4 mg/dL (0.2-1.0); BLOOD UREA NITROGEN 10 mg/dL (7-18); CALCIUM 8.7 mg/dL (8.5-10.1); CO2 24 mmol/L (21-32); CREATININE 0.5 mg/dL (0.7-1.3); GLUCOSE,RANDOM 106 mg/dL (74-106); MAGNESIUM 2.3 mg/dL (1.8-2.4); SGOT/AST 14 U/L (15-37); SGPT/ALT 9 U/L (12-78); TOT PROT 6.1 g/dl (6.4-8.2)
--- NOTE | 2017-06-01 11:21 | PROC ---
Procedure Note Procedure: Asked by Dr. Suarez to remove the hemovac drain. Records reviewed, the drain put out 60ml over 24 hours and 10 since this am. The patient has been oob/ ambulating with PT. He denies any headaches. Tolerating a diet and having bowel function. Ioban dressing cut along the drain, drain removed without difficulty and tegaderm reapplied to dressing area that was cut.
--- NOTE | 2017-06-01 16:17 | PN ---
Progress Note (short form) - Note Progress Note: 71M s/p revision L4, L5, S1 laminectomies; inspection of hardware & fusion mass ; Left L4-L5 foraminotomy; Left L5 neurolysis POD #2. (+) Incisional back pain. (+) Mild left buttock discomfort. (-) Acute events overnight. (-) Overnight history of chest pain, shortness of breath, nausea, vomiting, chills, sweats. (-) Flatus; (-) BM. AVSS. Labs reviewed. PE: AAO x 3, NAD. Abdomen: soft, distended (gaseous - (+) tympanic to percussion). Incision: C/D/I. Drain intact & in place. B/L LE: Sensorimotor exam at baseline. 71M s/p revision L4, L5, S1 laminectomies; inspection of hardware & fusion mass ; Left L4-L5 foraminotomy; Left L5 neurolysis POD #2. 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 -Mechanical DVT PPx. Only: SCD's, BINH's. -Incentive spirometry. -PT/OT/Rehab, OOB. -WBAT B/L LE. -Soft diet. -f/u drain output. -f/u AM labs. -f/u OR wound cultures; very low clinical concern for infection (do not treat without discussing with surgical team). -OK to elevate head of bed as tolerated. -Care per medical hospitalist team. -Will follow. -Discharge planning. Rodrigo Suarez MD (Orthopaedic Surgery).
--- NOTE | 2017-06-01 17:45 | PN ---
Progress Note (short form) - Note Progress Note: 71M s/p revision L4, L5, S1 laminectomies; inspection of hardware & fusion mass ; Left L4-L5 foraminotomy; Left L5 neurolysis POD #1. Overall, back pain well controlled during daytime. Not using LIVE OUT NANNY. Pain bothersome at night. (+) Improved leg pain. (-) Acute events overnight. (-) Overnight history of chest pain, shortness of breath, nausea, vomiting, chills, sweats. (+) Voiding; (+) Flatus; (+) BM. (+) Ambulated length of hallway. AVSS. Labs reviewed. PE: AAO x 3, NAD. Abdomen: soft. Incision: C/D/I. B/L LE Motor Exam: All muscles supplying hips, knees, ankles, hindfeet, midfeet , and forefeet intact. B/L LE Motor Exam: L2-S1 2/2. 71M s/p revision L4, L5, S1 laminectomies; inspection of hardware & fusion mass ; Left L4-L5 foraminotomy; Left L5 neurolysis POD #1. -Pain control: pain management per anaesthesia team. -Mechanical DVT PPx. Only: SCD's, BINH's. -Incentive spirometry. -PT/OT/Rehab, OOB. -WBAT B/L LE. -Soft diet. -Care per medical hospitalist team. -Will follow. -Discharge planning: home when pain controlled. Levi Suarez MD (Orthopaedic Surgery).
--- NOTE | 2017-06-01 22:17 | PN ---
Physical Exam: SUBJECTIVE: Patient seen and examined at the bedside. Sitting in chair, pain improving. OBJECTIVE: Vital Signs Period Temp Pulse Resp BP Sys/Benjamin Pulse Ox Last 24 Hr 97.6 F-98.4 F 68-75 16-20 126-154/67-79 96 GENERAL: The patient is awake, alert, and fully oriented, in no acute distress. HEAD: Normal with no signs of trauma. EYES: PERRL, extraocular movements intact, sclera anicteric, conjunctiva clear. No ptosis. LUNGS: Breath sounds equal, clear to auscultation bilaterally, no wheezes HEART: Regular rate and rhythm ABDOMEN: Soft, nontender, nondistended, normoactive bowel sounds NEUROLOGICAL: Normal speech, gait not observed. PSYCH: Normal mood, normal affect. SKIN: Warm, dry, normal turgor, no rashes or lesions noted Laboratory Results - last 24 hr 06/01/17 06/01/17 09:40 09:40 WBC 7.8 RBC 3.87 L Hgb 10.7 L Hct 31.4 L MCV 81.2 MCH 27.6 MCHC 33.9 RDW 15.1 Plt Count 228 MPV 8.4 Neutrophils % 68.0 Lymphocytes % 19.2 Monocytes % 8.5 Eosinophils % 3.7 Basophils % 0.6 Sodium 142 Potassium 3.7 Chloride 106 Carbon Dioxide 24 Anion Gap 12 BUN 10 Creatinine 0.5 L Creat Clearance w eGFR > 60 Random Glucose 106 Calcium 8.7 Magnesium 2.3 Total Bilirubin 0.4 AST 14 L D ALT 9 L D Alkaline Phosphatase 83 D Total Protein 6.1 L Albumin 2.5 L D Active Medications Generic Name Dose Route Start Last Admin Trade Name Freq PRN Reason Stop Dose Admin Acetaminophen 650 mg 06/01/17 09:39 06/01/17 15:49 Tylenol - PO 650 mg Q4H PRN Administration PAIN SACLE 1-3 Bisacodyl 10 mg 05/31/17 18:04 Dulcolax Suppository - RC DAILY PRN CONSTIPATION Bupropion HCl 150 mg 05/29/17 10:00 06/01/17 09:50 Wellbutrin Xl - PO 150 mg DAILY ENRIQUE Administration Cyclobenzaprine HCl 10 mg 05/28/17 22:00 05/31/17 22:20 Flexeril - PO 10 mg HS ENRIQUE Administration Duloxetine HCl 120 mg 05/29/17 10:00 06/01/17 09:49 Cymbalta - PO 120 mg DAILY ENRIQUE Administration HCTZ/Losartan Potassium 1 tab 05/29/17 10:00 06/01/17 09:49 Hyzaar - PO 1 tab DAILY ENRIQUE Administration Metoprolol Succinate 50 mg 05/29/17 10:00 06/01/17 09:49 Toprol Xl - PO 50 mg DAILY ENRIQUE Administration Mirtazapine 30 mg 05/28/17 22:00 05/31/17 22:20 Remeron - PO 30 mg HS ENRIQUE Administration Non-Formulary Medication 6 mg 05/28/17 22:00 Ropinirole Hcl [Ropinirole Er] PO HS ENRIQUE Ondansetron HCl 4 mg 05/28/17 12:26 Zofran Injection IVPUSH Q6H PRN NAUSEA AND/OR VOMITING Ondansetron HCl 4 mg 05/28/17 12:27 Zofran Injection IVPUSH Q4H PRN NAUSEA AND/OR VOMITING Ondansetron HCl 4 mg 05/28/17 16:33 Zofran Injection IVPUSH Q6H PRN NAUSEA AND/OR VOMITING Oxycodone HCl 10 mg 06/01/17 09:36 06/01/17 15:48 Roxicodone - PO 10 mg Q4H PRN Administration PAIN LEVEL 7-10 Oxycodone HCl 5 mg 06/01/17 09:37 Roxicodone - PO Q4H PRN PAIN LEVEL 4-6 Promethazine HCl 12.5 mg 05/28/17 12:27 Phenergan Injection - IVPB Q6H PRN NAUSEA AND/OR VOMITING Zolpidem Tartrate 5 mg 05/30/17 15:59 05/31/17 22:20 Ambien - PO 5 mg HS PRN Administration INSOMNIA ASSESSMENT/PLAN: Patient is a 71 year old male with a significant past medical history of HTN, dyslipidemia, spinal stenosis s/p revision L4, L5, s/p L4-L5 revision S1 laminectomies; inspection of hardware & fusion mass; Left L4-L5 foraminotomy and Left L5 neurolysis on 05/28/17. Ortho L4, L5 revision/L4-L5 revision S1 laminectomies; inspection of hardware & fusion mass; Left L4-L5 foraminotomy, Left L5 neurolysis Pain control with Oxycodone On Flexiril, Remeron Wound cultures with no growth afebrile, wbc normal Monitor intake and output Physical therapy daily Patient electing to have PT at home Surgical drain removed Hypertension, controlled On Toprol sl, HCTZ/losartan F.E.N. Fluids: tolerating PO Electrolytes: monitor Nutrition: regular diet Prophy: DVT: SCDs GI: deferred Disposition: Surgery clearance prior to discharge. Likely discharge tomorrow. full code. Visit type - Emergency Visit Emergency Visit: Yes ED Registration Date: 05/28/17 Care time: The patient presented to the Emergency Department on the above date and was hospitalized for further evaluation of their emergent condition. - New Patient This patient is new to me today: No - Critical Care Critical Care patient: No - Discharge Referral Referred to [facility] Med [facility] No
[2017-06-01] MEDS: ZOLPIDEM TARTRATE 5 MG TABLET PO PRN (22:22)
[2017-06-01] MEDS: MIRTAZAPINE 15 MG TABLET (FP) PO SCH (22:23)
[2017-06-01] MEDS: CYCLOBENZAPRINE HCL 10 MG TABLET (FP) PO SCH (22:23)
[2017-06-02] MEDS: oxyCODONE HCL 5 MG TABLET PO PRN (07:06)
[2017-06-02] MEDS: ACETAMINOPHEN 325 MG TABLET (FP) PO PRN (07:06)
[2017-06-02] MEDS ORDERED: PT OWN MED DRAWER 7, Y5N ONE (10:13)
[2017-06-02] MEDS: DULoxetine HCL 30 MG CAPSULE.DR (FP) PO SCH (10:14)
[2017-06-02] MEDS: LOSARTAN 50MG/HCTZ 12.5MG 1 TAB (FP) PO SCH (10:15)
[2017-06-02 11:25] VITALS: BP 126/56; PULSE 81; TEMP 98.3
--- NOTE | 2017-06-02 12:01 | DS ---
Physical Examination Vital Signs: Vital Signs Temperature 98.3 F 06/02/17 08:20 Pulse Rate 81 06/02/17 08:20 Respiratory Rate 18 06/02/17 08:20 Blood Pressure 126/56 06/02/17 08:20 O2 Sat by Pulse Oximetry (%) 98 06/01/17 22:00 Labs: CBC, BMP 06/01/17 09:40 06/01/17 09:40 Discharge Summary Reason For Visit: OTHER INTERVERT DISC DISPLACEMENT Condition: Improved - Instructions Diet, Activity, Other Instructions: Please return to the ED with new, persistent, or worsening symptoms. Please follow-up with providers as indicated. Referrals: Rodrigo Suarez MD [Staff Physician] - (Please follow-up with Dr. Suarez within 1 week for further post-operative care) Herbert Gillette MD [Staff Physician] - 1 Week Disposition: VNS/HOME HEALTH CARE - Home Medications Comprehensive Discharge Medication List: Ambulatory Orders Atorvastatin Ca [Lipitor] 20 mg PO HS 02/08/17 Duloxetine HCl [Cymbalta] 120 mg PO DAILY 02/08/17 Metoprolol Succinate [Toprol Xl] 50 mg PO DAILY 02/08/17 Mirtazapine [Remeron -] 30 mg PO HS 02/08/17 Bupropion HCl [Bupropion Xl] 150 mg PO DAILY 02/09/17 Cyclobenzaprine HCl [Flexeril -] 10 mg PO HS 02/09/17 Losartan 50Mg/Hctz 12.5MG [Hyzaar -] 1 tab PO DAILY 02/09/17 Polyethylene Glycol 3350 [Miralax 119 gm Btl -] 17 gm PO HS PRN 05/28/17 Acetaminophen [Tylenol .Regular Strength -] 650 mg PO Q4H PRN tablet 06/02/17 Bisacodyl Suppository [Dulcolax Suppository -] 10 mg RC DAILY PRN #10 supp.rect 06/02/17 oxyCODONE HCL [Roxicodone -] 1 - 2 tab PO Q4H PRN #36 tablet MDD 60mg 06/02/17 - Discharge Referral Referred to [facility] No
--- NOTE | 2017-06-02 15:19 | PN ---
Progress Note (short form) - Note Progress Note: 71M s/p revision L4, L5, S1 laminectomies; inspection of hardware & fusion mass ; Left L4-L5 foraminotomy; Left L5 neurolysis POD #5. (+) Improved leg pain. (-) Acute events overnight. (-) Overnight history of chest pain, shortness of breath, nausea, vomiting, chills, sweats. (+) Voiding; (+) Flatus; (+) BM. (+) Ambulated length of hallway. AVSS. Labs reviewed. PE: AAO x 3, NAD. Abdomen: soft. Incision: C/D/I. B/L LE SensoriMotor Exam: At baseline. 71M s/p revision L4, L5, S1 laminectomies; inspection of hardware & fusion mass ; Left L4-L5 foraminotomy; Left L5 neurolysis POD #5. -Pain control: pain management per anaesthesia team. -Mechanical DVT PPx. Only: SCD's, BINH's. -Incentive spirometry. -PT/OT/Rehab, OOB. -WBAT B/L LE. -Soft diet. -Care per medical hospitalist team. -Will follow. -Discharge planning: home today. Rodrigo Suarez MD (Orthopaedic Surgery).
== END 2017-06-02 13:49 | disposition home health service (06) | DRG 479 ==
LOC: EDSTATUS 08:00 → JSAMEDAYSX 05-28 05:19 → J8W 05-28 18:00
PROVIDERS: ADMIT Orthopaedic Surgery Orthopaedic Surgery of the Spine; ATTEND Registered Nurse
PROC: 0QJY0ZZ Inspection of Lower Bone, Open Approach (ICD-10-PCS; 2017-05-28)
PROC: 01NB0ZZ Release Lumbar Nerve, Open Approach (ICD-10-PCS; 2017-05-28)
PROC: 0QB00ZZ Excision of Lumbar Vertebra, Open Approach (ICD-10-PCS; principal; 2017-05-28 08:00)
DX: M54.17 Radiculopathy, lumbosacral region (principal); M43.17 Spondylolisthesis, lumbosacral region; I10 Essential (primary) hypertension; E78.5 Hyperlipidemia, unspecified; E11.9 Type 2 diabetes mellitus without complications; F17.210 Nicotine dependence, cigarettes, uncomplicated; F32.9 Major depressive disorder, single episode, unspecified; E87.6 Hypokalemia; Z88.0 Allergy status to penicillin; G47.00 Insomnia, unspecified; I95.9 Hypotension, unspecified
CPT/HCPCS: 36415; 76000-TC-FY; 80048; 80053; 83735; 85025; 85027; 87070; 87205; 97116-GP; 97162-GP; J0131; J1170; J1644; J7030